=== PATIENT | male | born 1935 | race Caucasian/White ===

== ENCOUNTER 2017-04-08 19:33 | Inpatient (IN) | payer MEDICARE ==
[2017-04-08] MEDS ORDERED: NS 0.9% 1000 ML*IV.FLUID IV ONE (20:18)
[2017-04-08] MEDS ORDERED: Azithromycin IV(*) 500 MG in NS 0.9% 250 ML* 250 ML IVPB ONE (20:19)
[2017-04-08] MEDS ORDERED: Albuterol/Ipratropium NEB.SOL* Albuterol 2.5 MG/Ipratropium 0.5 MG 3 ML INH ONE (20:19)
[2017-04-08] MEDS ORDERED: methylPREDNISolone 125 MG* 2 ML VIAL IV ONE (20:19)
[2017-04-08] MEDS ORDERED: cefTRIAXone(*) 1 GM in NS 0.9% 50 ML* 50 ML IVPB ONE (20:19)
[2017-04-08 20:37] LABS: ABS Basophils 0 10^3/ul (0-0.2); ABS Eosinophils 0 10^3/ul (0-0.6); ABS Lymphocytes 0.4 10^3/ul (1.0-4.8); ABS Monocytes 0.6 10^3/ul (0-0.8); ABS Neutrophils 4.6 10^3/ul (1.5-7.7); ABS Nucleated RBC 0 10^3/ul; Eosinophil % 0 % (0-6); Hematocrit 52 % (42-52); Hemoglobin 17.4 g/dl (14.0-18.0); Lymphocyte % 7.4 % (25-47); Mean Corpuscular HGB Conc 33 g/dl (31-36); Mean Corpuscular Hemoglobin 32 pg (27-31); Mean Corpuscular Volume 96 fL (80-94); Mean Platelet Volume 8 um3 (7.4-10.4); Nucleated Red Blood Cells % 0.2; Platelet Count 166 10^3/ul (150-450); Red Blood Count 5.44 10^6/ul (4.0-5.4); Red Cell Distribution Width 14 % (10.5-15); White Blood Count 5.5 10^3/ul (3.5-10.8)
[2017-04-08 20:44] LABS: INR 0.82 (0.77-1.02)
--- OUTSIDE RECORDS SUMMARY | 2017-04-08 21:18 | XMS REPORT ---
:1935 External Reference #:[id number] Author Organization [facility] Address [address] [place] [address] Phone [phone] Care Team Providers Name Role Phone Alondra Redd M.D., R.D. Care Team Information Habilitation Specialist Unavailable Payers Type Date Identification Numbers Payment Provider Subscriber Commercial Effective: Policy Number: [id number] [employer] Jacques Hawkins 2014 Expires: 2016 PayID: [id number] [employer] [address] [address] [place] [address] Commercial Effective: Policy Number: [facility] Medicare Jacques Hawkins 2011 [id number] Solutions Expires: 2014 Group Number: [id number] [address] [address] [place] [address] Commercial Effective: 2016 Policy Number: [employer] Jacques Hawkins [id number] Group Name: [employer] Ppo [address] PayID: [id number] [place] [address] Problems Date Description Provider Status Onset: 09/14/2010 Chronic obstructive lung disease Susu Nicholas M.D. Active Onset: 09/14/2010 Coronary arteriosclerosis Susu Nicholas M.D. Active Family History Date Family Member(s) Problem(s) Comments Onset: (age 76 Years) Father COPD : (age 76 Years) Mother due to Pneumonia : (09/2011) (age 48 First Daughter due to Cancer (Brain) Years) : (age 68 Years) First Brother due to Cancer Onset: (age 7 Years) Second Brother Cancer, Lung Onset: (age 72 Years) Third Brother Cancer, Colon Onset: (age 68 Years) Fourth Brother Cancer Onset: (age 68 Years) Fifth Brother Cancer : (age 80 Years) First Sister due to Heart Problems : (age 84 Years) Second Sister due to Cancer Social History Type Date Description Comments Marital Status Patient is Living Situation Lives with spouse Pets Household pets include a dog Occupation [employer] Cigarette Use Former cigarette smoker, smoked 1 pack daily For 50 Years, quit after 2006 dx of COPD. continued to smoke at home until her own HI in the summer of 2010. He restarted smoking summer 2011 when his daughter of a brain tumor. Alcohol Drinks liquor 2 drinks in the evening. Smoking Patient is a current smoker, smokes every day Seat Belt/Car Seat Always uses a seat belt Allergies, Adverse Reactions, Alerts Date Description Reaction Status Severity Comments 01/16/2004 NKDA active 05/19/2014 Contrast Dye active rash Medications Medication Date Status Form Strength Qnty SIG Indications Ordering Provider Doxycycline 03/31/ Active Tablets 100mg 10tab 1 tab by J44.1 Karin Monohydrate 2018 s mouth twice Shortle, a day for 5 TANK WELDER days Albuterol 03/27/ Active Nebulizer (2.5mg/3M 360ml every 4 J44.1 Karin Sulfate 2018 L) 0.083% hours as Shortle, needed TANK WELDER Prednisone 03/27/ Active Tablets 20mg 25tab 3 by mouth J44.1 Karin 2018 s every day x Shortle, 3 days, 2 by TANK WELDER mouth every day x 3 days, 1 by mouth every day x 3 day, 1/2 tab by mouth for 3 days Stiolto 05/16/ Active Aerosol 2.5-2.5mc 4gm 2 Alondra Respimat 2017 g/Act inhalations Tramaine once daily Deja., R.D. Nebulizer 03/26/ Active Device 1unit use as Alondra 2016 s directed for Tramaine wheezing/ Luz, shortness of R.D. breath. dx- copd,j44.9 Anti-Histamine 05/19/ Active prn Alondra 2014 Luz Redd, R.D. Ventolin HFA 12/11/ Active Aerosol 108(90Bas 8gm inhale two Alondra 2012 e) puffs by Tramaine, mcg/Act mouth every M.D., 4 hours as R.D. needed for wheeze Ipratropium 02/15/ Active Solution 0.5-2.5(3 360un Inhale The Alondra Henriette/[place] 2011 )mg/3ML its Contents Of Tramaine, rol Sulfate 1 Vial Via M.D., Nebulizer R.D. Four Times A Day For Breathing Budesonide 02/15/ Active Suspension 0.5mg/2ML 120un Inhale The Alondra 2011 its Contents Of Tramaine, One Vial Via M.D., Nebulizer R.D. Four Times A Day as Needed Azithromycin 02/01/ Hx Tablets 250mg 6tabs take 2 J44.1 Roxie 2015 - tablets Aly, then 1 GOLF CADDIE-C 2016 tablet daily for the next 4 days Prednisone 02/01/ Hx Tablets 50mg 5tabs 1 by mouth J44.1 Roxie 2015 - every day x Aly, days- take GOLF CADDIE-C 2017 with food Oxygen 07/01/ Hx 2 lpm via Pio Concentrator 2015 - nasal Leon, 02/01/ cannula for M.D. 2015 8 hours while sleeping. dx:j44.9 2nd dxs: i51.7 and r60.9 length of need: 99 Oxygen 06/30/ Hx 2 lpm via Alondra Concentrator 2015 - nasal Tramaine, 07/01/ cannula for M.D., 2015 8 hours R.D. while sleeping. dx:j44.9 2nd dxs: i51.7 and r60.9 length of need: 99 Overnight 06/09/ Hx Alondra Oximetry 2016 - Tramaine 02/01/ M.D., 2016 R.D. Nebulizer 03/25/ Hx Kit 1unit use as Alondra Kit/Tubing/Flori 2016 - s directed darshan Redd 03/26/ M.D., 2016 R.D. Spiriva 10/17/ Hx Aerosol 2.5mcg/Ac 3mont inhale two Ari Respimat 2014 - t hs puffs by [place] 02/11/ mouth once a III, 2015 day GOLF CADDIE-C Nasonex 05/30/ Hx Suspension 50mcg/Act 1unit 1 puffs Alondra 2014 - s twice a day Tramaine, 12/15/ as needed M.D., 2016 R.D. Spiriva 05/30/ Hx Capsules 18mcg 30cap inhale the Alondra Handihaler 2014 - contents of Tramaine, capsule M.DKristy, 2015 daily R.D. Spiriva 05/30/ Hx Aerosol 2.5mcg/Ac 4unit inhale two Ivon Respimat 2014 - t s puffs by P. 05/16/ mouth once a Blegen, 2016 M.D. Ipratropium 04/05/ Hx Solution 0.02% 90uni one vial via Pio Georgette 2012 - ts nebulized Edward, 12/11/ treatment M.Mira 2013 qid prn breathing Albuterol Neb 05/09/ Hx Vials 0.083% 90uni nebulize One Susu Soln 2006 - ts vial bid to K.WKristy 12/11/ qid prn Cristopher 2013 Luz Ipratropium 05/09/ Hx 0.02% 90uni Ud for Use Pio Henriette Unit 2006 - in nebulizer Edward, Dose Nebs 04/05/ Up to qid M.Mira 2013 Pulmicort 05/09/ Hx Suspension 0.5mg/2 60uni nebulized Susu Respules 2007 - ML ts twice Daily K.W. 02/15/ Cristopher 2011 M.DKristy Pulmicort 03/27/ Hx Inhaler 200mcg/In 1unit one to two 496 Susu Turbuhaler 2006 - h s inhalations K.W. 05/09/ bid Caren iNcholas M.D. Prednisone 03/27/ Hx Tablets 20mg QS 1 po with 50 J44.9 Alondra 2007 - mg pill for Tramaine, 2 days, then M.DKristy, 2017 3 po qd for R.D. 3 days, then 2 po qd for 3 days then 1 po qd for 3 days then 1/2 qd for 3d Zithromax 03/27/ Hx Tablets 250mg 6tabs two po qd 496 Susu Z-Asif 2006 - and K.W. 05/09/ then one po Cristopher 2006 qd for 4 M.D. days Vicodin 03/27/ Hx Tablets 5mg;500 40tab one to two 496 Susu 2007 - mg s po qid prn K.W. 05/09/ rib pain Cristopher, 2006 M.D. Atrovent 02/02/ Hx Inhaler Mdi two puffs 496 Rosetta 2004 - qid A. 05/09/ Williams, 2006 [facility] Advair Diskus 01/15/ Hx Discus 500/50 mg One 1 puff bid 496 Rosetta 2004 - A. 05/09/ Williams, 2006 [facility] Nasonex 01/15/ Hx 1unit 2 Sprays 496 Ros[place] 2004 - s Each Side qd A. 12/11/ Williams, 2012 [facility] Albuterol / Hx Inhaler 17gm 2-seperate Unknown Metered Dose 0000 - puffs every Inhaler 05/09/ 4 hours 2006 Prednisone / Hx Tablets 10mg 0tabs taper as Unknown 0000 - directed / over 6 days -471 Immunizations CPT Code Status Date Vaccine Lot # 51234 Given 12/11/2012 Pneumovax 23 (PPSV23) 65+ years or high risk 2 to [id number] 65 year old [id number] Refused 12/16/2015 [place] [address] Refused 06/10/2015 Influenza Virus Vaccine, Quadrivalent, 3 Yr > Quad, Preserv Free Vital Signs Date Vital Result Comment 03/31/2017 Weight 120.00 lb Weight in kg's 54.432 BP Systolic 126 mmHg BP Diastolic 82 mmHg Heart Rate 93 /min Body Temperature 95.9 F Respiratory Rate 18 /min O2 % BldC Oximetry 96 % 03/27/2017 Weight 118.00 lb Weight in kg's 53.525 BP Systolic 158 mmHg BP Diastolic 88 mmHg Heart Rate 93 /min Body Temperature 96.5 F Respiratory Rate 44 /min O2 % BldC Oximetry 98 % 02/05/2016 Weight 113.00 lb Weight in kg's 51.257 BP Systolic 124 mmHg BP Diastolic 68 mmHg Heart Rate 107 /min Body Temperature 97.0 F Respiratory Rate 28 /min O2 % BldC Oximetry 97 % 02/02/2016 Weight 112.00 lb Weight in kg's 50.803 BP Systolic 118 mmHg BP Diastolic 70 mmHg Heart Rate 93 /min Body Temperature 98.5 F Respiratory Rate 18 /min O2 % BldC Oximetry 94 % Room air repeat 95% 12/16/2015 Weight 113.00 lb Weight in kg's 51.257 BP Systolic 136 mmHg BP Diastolic 70 mmHg Heart Rate 80 /min Body Temperature 97.9 F Respiratory Rate 18 /min Height 65 inches 5'5" BMI (Body Mass Index) 18.8 kg/m2 08/24/2015 Weight 116.00 lb Weight in kg's 52.618 BP Systolic 122 mmHg BP Diastolic 78 mmHg Heart Rate 64 /min 06/10/2015 Weight 121.00 lb Weight in kg's 54.886 BP Systolic 110 mmHg BP Diastolic 70 mmHg Heart Rate 87 /min O2 % BldC Oximetry 98 % 12/10/2014 Weight 121.00 lb Weight in kg's 54.886 BP Systolic 100 mmHg BP Diastolic 60 mmHg Heart Rate 64 /min Respiratory Rate 14 /min O2 % BldC Oximetry 97 % 05/30/2014 Weight 123.00 lb Weight in kg's 55.793 BP Systolic 130 mmHg BP Diastolic 60 mmHg Heart Rate 58 /min Body Temperature 96.7 F O2 % BldC Oximetry 97 % 05/19/2014 Weight 124.00 lb Weight in kg's 56.246 BP Systolic 142 mmHg BP Diastolic 68 mmHg Heart Rate 98 /min Body Temperature 98.3 F O2 % BldC Oximetry 94 % 12/11/2012 Weight 121.00 lb Weight in kg's 54.886 BP Systolic 120 mmHg BP Diastolic 68 mmHg Heart Rate 70 /min Height 67 inches 5'7" BMI (Body Mass Index) 18.9 kg/m2 O2 % BldC Oximetry 98 % 09/14/2010 Weight 138.00 lb Weight in kg's 62.597 BP Systolic 132 mmHg BP Diastolic 70 mmHg Heart Rate 56 /min O2 % BldC Oximetry 96 % At Room Air 02/29/2008 Weight 148.00 lb Weight in kg's 67.133 BP Systolic 110 mmHg BP Diastolic 60 mmHg Heart Rate 68 /min O2 % BldC Oximetry 98 % room air 05/09/2006 Weight 143.00 lb Weight in kg's 64.865 BP Systolic 104 mmHg BP Diastolic 72 mmHg Heart Rate 76 /min Body Temperature 97.6 F 04/03/2006 Weight 139.00 lb Weight in kg's 63.050 BP Systolic 120 mmHg BP Diastolic 70 mmHg Heart Rate 72 /min 03/27/2006 Weight 137.00 lb Weight in kg's 62.143 BP Systolic 140 mmHg BP Diastolic 90 mmHg Heart Rate 87 /min Last Menstrual Period 0 O2 % BldC Oximetry 97 % 02/03/2004 Weight 133.00 lb Weight in kg's 60.329 BP Systolic 90 mmHg BP Diastolic 60 mmHg 01/16/2004 Weight 126.00 lb Weight in kg's 57.154 BP Systolic 149 mmHg BP Diastolic 88 mmHg Heart Rate 63 /min Body Temperature 97.0 F Respiratory Rate 18 /min Results Test Date Test Result H/L Range Note CBC Auto Diff 12/16/2015 White Blood Count 9.2 10^3/uL 3.5-10.8 Red Blood Count 5.15 10^6/uL 4.0-5.4 Hemoglobin 16.2 g/dL 14.0-18.0 Hematocrit 49 % 42-52 Mean Corpuscular Volume 96 fL High 80-94 Mean Corpuscular Hemoglobin 32 pg High 27-31 Mean Corpuscular HGB Conc 33 g/dL 31-36 Red Cell Distribution Width 14 % 10.5-15 Platelet Count 236 10^3/uL 150-450 Mean Platelet Volume 9 um3 7.4-10.4 Abs Neutrophils 6.2 10^3/uL 1.5-7.7 Abs Lymphocytes 1.8 10^3/uL 1.0-4.8 Abs Monocytes 0.7 10^3/uL 0-0.8 Abs Eosinophils 0.3 10^3/uL 0-0.6 Abs Basophils 0.1 10^3/uL 0-0.2 Abs Nucleated RBC 0.01 10^3/uL Granulocyte % 67.3 % 38-83 Lymphocyte % 20.1 % Low 25-47 Monocyte % 8.1 % 1-9 Eosinophil % 3.0 % 0-6 Basophil % 1.5 % 0-2 Nucleated Red Blood Cells % 0.1 Comp Metabolic Panel 12/16/2015 Sodium 139 mmol/L 133-145 Potassium 4.5 mmol/L 3.5-5.0 Chloride 103 mmol/L 101-111 Co2 Carbon Dioxide 29 mmol/L 22-32 Anion Gap 7 mmol/L 2-11 Glucose 68 mg/dL Low 70-100 Blood Urea Nitrogen 13 mg/dL 6-24 Creatinine 1.02 mg/dL 0.67-1.17 BUN/Creatinine Ratio 12.7 8-20 Calcium 9.5 mg/dL 8.6-10.3 Total Protein 6.8 g/dL 6.4-8.9 Albumin 4.3 g/dL 3.2-5.2 Globulin 2.5 g/dL 2-4 Albumin/Globulin Ratio 1.7 1-3 Total Bilirubin 0.40 mg/dL 0.2-1.0 Alkaline Phosphatase 93 U/L 34-104 Alt 10 U/L 7-52 Ast 13 U/L 13-39 Egfr Non- 70.5 >60 Egfr 90.6 >60 1 Laboratory test finding 12/16/2015 TSH (Thyroid Stim Horm) 1.06 mcIU/mL 0.34-5.60 2 Erythrocyte Sed Rate 9 mm/Hr 0-40 3 C Reactive Protein 2.97 mg/L < 5.00 4 Vitamin B12 282 pg/mL 180-914 5 CBC Auto Diff 08/24/2015 White Blood Count 9.7 10^3/uL 3.5-10.8 Red Blood Count 4.71 10^6/uL 4.0-5.4 Hemoglobin 14.9 g/dL 14.0-18.0 Hematocrit 44 % 42-52 Mean Corpuscular Volume 94 fL 80-94 Mean Corpuscular Hemoglobin 32 pg High 27-31 Mean Corpuscular HGB Conc 34 g/dL 31-36 Red Cell Distribution Width 14 % 10.5-15 Platelet Count 235 10^3/uL 150-450 Mean Platelet Volume 9 um3 7.4-10.4 Abs Neutrophils 6.6 10^3/uL 1.5-7.7 Abs Lymphocytes 1.9 10^3/uL 1.0-4.8 Abs Monocytes 0.8 10^3/uL 0-0.8 Abs Eosinophils 0.4 10^3/uL 0-0.6 Abs Basophils 0.1 10^3/uL 0-0.2 Abs Nucleated RBC 0 10^3/uL Granulocyte % 67.7 % 38-83 Lymphocyte % 19.4 % Low 25-47 Monocyte % 8.1 % 1-9 Eosinophil % 3.6 % 0-6 Basophil % 1.2 % 0-2 Nucleated Red Blood Cells % 0 Comp Metabolic Panel 08/24/2015 Sodium 138 mmol/L 133-145 Potassium 4.4 mmol/L 3.5-5.0 Chloride 105 mmol/L 101-111 Co2 Carbon Dioxide 26 mmol/L 22-32 Anion Gap 7 mmol/L 2-11 Glucose 81 mg/dL 70-100 Blood Urea Nitrogen 15 mg/dL 6-24 Creatinine 1.06 mg/dL 0.67-1.17 BUN/Creatinine Ratio 14.2 8-20 Total Protein 6.4 g/dL 6.4-8.9 Albumin 3.9 g/dL 3.2-5.2 Globulin 2.5 g/dL 2-4 Albumin/Globulin Ratio 1.6 1-3 Total Bilirubin 0.30 mg/dL 0.2-1.0 Alkaline Phosphatase 82 U/L 34-104 Alt 9 U/L 7-52 Ast 12 U/L Low 13-39 Egfr Non- 67.4 >60 Egfr 86.7 >60 6 Calcium 9.0 mg/dL 8.6-10.3 Lipid Profile (Trig/Chol/HDL) 08/24/2015 Triglycerides 97 mg/dL 7 Cholesterol 174 mg/dL 8 HDL Cholesterol 51.3 mg/dL 9 LDL Cholesterol 103 mg/dL 10 Basic Metabolic Panel 05/19/2014 Sodium 139 mmol/L 133-145 Potassium 3.8 mmol/L 3.5-5.0 Chloride 105 mmol/L 101-111 Co2 Carbon Dioxide 26 mmol/L 22-32 Anion Gap 8 mmol/L 2-11 Glucose 117 mg/dL High 70-100 Blood Urea Nitrogen 14 mg/dL 6-24 Creatinine 0.89 mg/dL 0.67-1.17 BUN/Creatinine Ratio 15.7 8-20 Calcium 9.3 mg/dL 8.6-10.3 Egfr Non- 82.9 >60 Egfr 106.6 >60 11 CBC Auto Diff 05/19/2014 White Blood Count 7.7 10^3/uL 4.8-10.8 Red Blood Count 4.67 10^6/uL 4.0-5.4 Hemoglobin 15.4 g/dL 14.0-18.0 Hematocrit 46 % 42-52 Mean Corpuscular Volume 98 fL High 80-94 Mean Corpuscular Hemoglobin 33 pg High 27-31 Mean Corpuscular HGB Conc 34 g/dL 31-36 Red Cell Distribution Width 14 % 10.5-15 Platelet Count 222 10^3/uL 150-450 Mean Platelet Volume 9 um3 7.4-10.4 Abs Neutrophils 4.4 10^3/uL 1.5-7.7 Abs Lymphocytes 1.8 10^3/uL 1.0-4.8 Abs Monocytes 0.7 10^3/uL 0-0.8 Abs Eosinophils 0.6 10^3/uL 0-0.6 Abs Basophils 0.1 10^3/uL 0-0.2 Abs Nucleated RBC 0.01 10^3/uL Granulocyte % 57.3 % 38-83 Lymphocyte % 24.1 % Low 25-47 Monocyte % 9.4 % High 1-9 Eosinophil % 8.3 % High 0-6 Basophil % 0.9 % 0-2 Nucleated Red Blood Cells % 0.1 Laboratory test finding 05/19/2014 TSH (Thyroid Stimulating 0.79 IU/mL 0.34-5.60 Horm) Lipid Profile 05/19/2014 Triglycerides 144 mg/dL 12 (Trig/Chol/HDL) Cholesterol 174 mg/dL 13 HDL Cholesterol 40.7 mg/dL 14 LDL Cholesterol 105 mg/dL 15 Comp Metabolic Panel 12/11/2012 Sodium 137 mmol/L 133-145 Potassium 4.7 mmol/L 3.5-5.0 Chloride 105 mmol/L 101-111 Co2 Carbon Dioxide 28.0 mmol/L 22-32 Anion Gap 4.0 mmol/L 2-11 Glucose 77 mg/dL 70-100 Blood Urea Nitrogen 14 mg/dL 6-24 Creatinine 0.80 mg/dL 0.50-1.40 BUN/Creatinine Ratio 17.5 8-20 Calcium 9.5 mg/dL 8.1-9.9 Total Protein 6.3 g/dL 6.2-8.1 Albumin 3.9 g/dL 3.2-5.2 Globulin 2.4 g/dL 2-4 Albumin/Globulin Ratio 1.6 1-3 Total Bilirubin 0.5 mg/dL 0.4-1.5 Alkaline Phosphatase 85 U/L 30-110 Alt 10 U/L Low 14-54 Ast 16 U/L 12-42 Egfr Non- 94.0 >60 Egfr 120.9 >60 16 CBC No Diff 12/11/2012 White Blood Count 9.0 10^3/uL 4.8-10.8 Red Blood Count 4.78 10^6/uL 4.0-5.4 Hemoglobin 15.9 g/dL 14.0-18.0 Hematocrit 47 % 42-52 Mean Corpuscular Volume 98 fL High 80-94 Mean Corpuscular Hemoglobin 33 pg High 27-31 Mean Corpuscular HGB Conc 34 g/dL 31-36 Red Cell Distribution Width 14 % 10.5-15 Platelet Count 307 10^3/uL 150-450 Mean Platelet Volume 9 um3 7.4-10.4 Laboratory test finding 12/11/2012 PSA Screening 3.561 ng/mL 0-4.000 17 Laboratory test finding 09/14/2010 PSA Screening 2.36 NG/ML 0-4 18 CBC Auto Diff 09/14/2010 White Blood Count 8.8 CUMM 4.8-10.8 Red Cell Count 5.18 CUMM 4.6-6.2 Hemoglobin 17.5 g/dL 14.0-18.0 Hematocrit 51 % 42-52 Mean Corpuscular Volume 99 um3 High 80-94 Mean Corpuscular Hemoglob 34 pg High 27-31 Mean Corpuscular HGB Cone 34 g/dL 32-36 Redcell Distribution WDTH 15 % 10.5-15 Platelet Count 255 CUMM 150-450 Mean Platelet Volume 9.5 um3 7.4-10.4 Gran % 63.2 % 38-83 Lymph % 23.8 % Low 25-47 Mononuclear % 8.0 % 1-9 Eosinophil % 4.4 % 0-6 Basophil % 0.6 % 0-2 Abs Lymphs 2.1 1.0-4.8 Abs Mononuclear 0.7 0-0.8 Absolute Neutrophil Count 5.5 1.5-7.7 Abs Eosinophils 0.4 0-0.6 Abs Basophils 0.1 0-0.2 Comp Metabolic Panel 09/14/2010 Sodium 143 mmol/L 135-145 Potassium 4.9 mmol/L 3.5-5.0 Chloride 105 mmol/L 101-111 Co2 (Carbon Dioxide) 28.0 mmol/L 22-32 Anion Gap 10.0 mmol/L 2-11 19 Glucose 104 mg/dL High 70-100 BUN 12 mg/dL 6-24 Creatinine 1.10 mg/dL 0.50-1.40 One Over Creatinine 0.90 BUN/Creatinine Ratio 10.9 8-20 Calcium 10.0 mg/dL High 8.1-9.9 Total Protein 7.1 GM/DL 6.2-8.1 Albumin 4.2 GM/DL 3.2-5.2 Globulin 2.9 GM/DL 2-4 Albumin/Globulin Ratio 1.4 1-3 Bilirubin Total 0.6 mg/dL 0.4-1.5 20 Alkaline Phosphatase 90 U/L 39-117 Alt (SGPT) 21 U/L 17-63 Ast (Sgot) 18 U/L 12-42 eGFR Non- 65.4 > 60 eGFR 84.2 > 60 21 Laboratory test finding 02/29/2008 BUN 10 mg/dL 6-24 Creatinine 02/29/2008 Creatinine 1.20 mg/dL 0.50-1.40 One Over Creatinine 0.80 Lipid Profile 03/27/2006 Cholesterol/HDL Ratio 4.32 AVERAGE 1-4.97 (Trig/Chol/HDL) Cholesterol 203 mg/dL High Less Than 200 22 Triglyceride 141 mg/dL 40-200 High Density Lipoprotein 47 mg/dL 40-60 Low Density Lipoprotein 128 mg/dL High Less Than 100 23 Laboratory test finding 03/27/2006 PSA Screening 1.57 NG/ML 0.01-4.0 24 TSH 1.43 MIU/ML 0.34-5.60 Comp Metabolic Panel 03/27/2006 One Over Creatinine 0.52 Anion Gap 13.0 mmol/L High 2-11 25 Albumin/Globulin Ratio 1.5 1-3 Albumin 4.1 GM/DL 3.2-5.2 Alkaline Phosphatase 103 U/L 39-117 Alt (SGPT) 31 U/L 17-63 Ast (Sgot) 26 U/L 12-42 Calcium 9.6 mg/dL 8.7-10.2 Chloride 103 mmol/L 101-111 Co2 (Carbon Dioxide) 21.0 mmol/L Low 22-32 Globulin 2.8 GM/DL 2-4 Glucose 84 mg/dL 70-105 Potassium 4.2 mmol/L 3.5-5.0 Sodium 137 mmol/L 135-145 Bilirubin Total 0.9 mg/dL 0.4-1.5 Total Protein 6.9 GM/DL 6.2-8.1 BUN/Creatinine Ratio 12.1 8-20 Creatinine 1.9 mg/dL High 0.5-1.4 Creatinine 03/27/2006 One Over Creatinine 0.52 Creatinine 1.9 mg/dL High 0.5-1.4 Laboratory test finding 03/27/2006 BUN 23 mg/dL 6-24 1 Because ethnic data is not always readily available, this report includes an eGFR for both -Americans and non- Americans. The National Kidney Disease Education Program (NKDEP) does not endorse the use of the MDRD equation for patients that are not between the ages of 18 and 70, are , have extremes of body size, muscle mass, or nutritional status, or are non- or non-. According to the National Kidney Foundation, irrespective of diagnosis, the stage of the disease is based on the level of kidney function: Stage Description GFR(mL/min/1.73 m(2)) 1 Kidney damage with normal or decreased GFR 90 2 Kidney damage with mild decrease in GFR 60-89 3 Moderate decrease in GFR 30-59 4 Severe decrease in GFR 15-29 5 Kidney failure <15 (or dialysis) 2 [id number] 3 [id number] 4 Acute inflammation: >10.00 5 Normal Range 180 to 914 Indeterminate Range 145 to 180 Deficient Range <145 6 Because ethnic data is not always readily available, this report includes an eGFR for both -Americans and non- Americans. The National Kidney Disease Education Program (NKDEP) does not endorse the use of the MDRD equation for patients that are not between the ages of 18 and 70, are , have extremes of body size, muscle mass, or nutritional status, or are non- or non-. According to the National Kidney Foundation, irrespective of diagnosis, the stage of the disease is based on the level of kidney function: Stage Description GFR(mL/min/1.73 m(2)) 1 Kidney damage with normal or decreased GFR 90 2 Kidney damage with mild decrease in GFR 60-89 3 Moderate decrease in GFR 30-59 4 Severe decrease in GFR 15-29 5 Kidney failure <15 (or dialysis) 7 Desirable <150 Borderline high 150-199 High 200-499 Very High >500 8 Desirable <200 Borderline high 200-239 High >239 9 Low <40 Desirable: 40-60 High: >60 10 Desirable: <100 mg/dL Near Optimal: 100-129 mg/dL Borderline High: 130-159 mg/dL High: 160-189 mg/dL Very High: >189 mg/dL 11 Because ethnic data is not always readily available, this report includes an eGFR for both -Americans and non- Americans. The National Kidney Disease Education Program (NKDEP) does not endorse the use of the MDRD equation for patients that are not between the ages of 18 and 70, are , have extremes of body size, muscle mass, or nutritional status, or are non- or non-. According to the National Kidney Foundation, irrespective of diagnosis, the stage of the disease is based on the level of kidney function: Stage Description GFR(mL/min/1.73 m(2)) 1 Kidney damage with normal or decreased GFR 90 2 Kidney damage with mild decrease in GFR 60-89 3 Moderate decrease in GFR 30-59 4 Severe decrease in GFR 15-29 5 Kidney failure <15 (or dialysis) 12 Desirable <150 Borderline high 150-199 High 200-499 Very High >500 13 Desirable <200 Borderline high 200-239 High >239 14 Low <40 Desirable: 40-60 High: >60 15 Desirable: <100 mg/dL Near Optimal: 100-129 mg/dL Borderline High: 130-159 mg/dL High: 160-189 mg/dL Very High: >189 mg/dL 16 Because ethnic data is not always readily available, this report includes an eGFR for both -Americans and non- Americans. The National Kidney Disease Education Program (NKDEP) does not endorse the use of the MDRD equation for patients that are not between the ages of 18 and 70, are , have extremes of body size, muscle mass, or nutritional status, or are non- or non-. According to the National Kidney Foundation, irrespective of diagnosis, the stage of the disease is based on the level of kidney function: Stage Description GFR(mL/min/1.73 m(2)) 1 Kidney damage with normal or decreased GFR 90 2 Kidney damage with mild decrease in GFR 60-89 3 Moderate decrease in GFR 30-59 4 Severe decrease in GFR 15-29 5 Kidney failure <15 (or dialysis) 17 Serum levels of PSA measured using the Nevro DXI Hybritech immunoassay should not be interpreted as absolute evidence of the presence or absence of disease. The PSA value should be used in conjunction with other pertinent clinical diagnostic procedures. The values obtained with different assay methods or kits cannot be used interchangeably. 18 * SERUM LEVELS OF PSA MEASURED USING THE KENNY Hear[employer] ACCESS HYBRITECH IMMUNOASSAY SHOULD NOT BE INTERPRETED ABSOLUTE EVIDENCE OF THE PRESENCE OR ABSENCE OF DISEASE. THE PSA VALUE SHOULD BE USED IN CONJUNCTION WITH OTHER PERTINENT CLINICAL DIAGNOSTIC PROCEDURES. 19 Anion gap measurement may be of limited value in the presence of any alkalosis, especially in a combined acid base disorder. . 20 A metabolite of Naproxen, O-desmethylnaproxen, has been shown to interfere with the Jendrassik-Calvin method for measuring total bilirubin. Samples from patients who have taken Naproxen have shown spurious elevation in total bilirubin levels. 21 Because ethnic data is not always readily available, this report includes an eGFR for both -Americans and non- Americans. The National Kidney Disease Education Program (NKDEP) does not endorse the use of the MDRD equation for patients that are not between the ages of 18 and 70, are , have extremes of body size, muscle mass, or nutritional status, or are non- or non-. According to the National Kidney Foundation, irrespective of diagnosis, the stage of the disease is based on the level of kidney function: Stage Description GFR(mL/min/1.73 m(2)) 1 Kidney damage with normal or decreased GFR 90 2 Kidney damage with mild decrease in GFR 60-89 3 Moderate decrease in GFR 30-59 4 Severe decrease in GFR 15-29 5 Kidney failure <15 (or dialysis) 22 Classification: Borderline High . 23 CALCULATED LDL APPROXIMATES THE VALUE OF A DIRECT LDL MEASUREMENT. Classification: Near or above optimal . 24 * SERUM LEVELS OF PSA MEASURED USING THE KENNY [employer] ACCESS HYBRITECH IMMUNOASSAY SHOULD NOT BE INTERPRETED ABSOLUTE EVIDENCE OF THE PRESENCE OR ABSENCE OF DISEASE. THE PSA VALUE SHOULD BE USED IN CONJUNCTION WITH OTHER PERTINENT CLINICAL DIAGNOSTIC PROCEDURES. 25 Anion gap measurement may be of limited value in the presence of any alkalosis, especially in a combined acid base disorder. . Procedures Date CPT Code Description Status 02/02/2016 51574 Nebulizer Treatment Completed 12/11/2012 31657 EKG, at Least 12 Leads w/Interpretation and Report Completed 12/11/2012 74094 Audiometric Screening Test, Pure Tone, Air Only Completed 05/09/2006 02236 Spirometry Completed 03/27/2006 31927 Spirometry Completed 03/27/2006 94797 EKG, at Least 12 Leads w/Interpretation and Report Completed Encounters Type Date Location Provider CPT E/M Dx Office Visit 02/05/2016 10:45a Main Office Alondra Redd M.D., R.DKristy 36363 J44.1 Office Visit 02/02/2016 4:00p [facility] 26261 J44.1 Office Visit 12/16/2015 9:30a Main Office Alondra Redd M.D., R.Mira G0439 Z00.00 J44.9 F17.200 G47.62 R63.4 Office Visit 08/24/2015 11:15a Main Office Alondra Redd M.D., Henry.DKristy 74326 H26.9 J44.9 F17.200 Z13.220 Office Visit 06/10/2015 10:45a Main Office Alondra Redd M.D., R.DKristy 78393 J44.9 Office Visit 12/10/2014 10:30a Main Office Alondra Redd M.D., Henyr.DKristy 97068 J44.9 Office Visit 05/30/2014 10:00a Main Office Alondra Redd M.D., R.DKristy 18492 496 Office Visit 05/19/2014 2:45p Main Office Alondra Redd M.D., Henry.DKristy 29712 496 Office Visit 12/11/2012 1:30p Main Office Susu Nicholas M.D. G0438 V70.0 496 305.1 389.9 V03.82 Office Visit 09/14/2010 11:00a Main Office Susu Nicholas M.D. 20776 780.8 496 782.1 785.2 Office Visit 02/29/2008 11:45a Main Office Susu Nicholas M.D. 72640 496 414.01 Office Visit 05/09/2006 12:30p Main Office Susu Nicholas M.D. 44860 496 Office Visit 05/09/2006 1:00p Main Office Susu Nicholas M.D. 40004 496 Office Visit 04/03/2006 2:00p Main Office Susu Nicholas M.D. 96988 496 414.01 Office Visit 03/27/2006 1:45p Main Office Susu Nicholas M.D. 73584 496 786.52 414.01 Office Visit 02/03/2004 9:45a Main Office Rosetta Kramer F.N.P.CKristy 19330 496 305.1 Office Visit 01/16/2004 9:00a Main Office Rosetta Kramer F.N.P.C. 92400 496 305.1 V16.8 Plan of Care Future Appointment(s):04/06/2017 12:00 pm - Alondra Redd M.D., R.D. at Main Dfdgec0603/31/2017 - Karin Lambert, NPJ44.1 Chronic obstructive pulmonary disease w (acute) exacerbationNew Medication:Doxycycline Monohydrate 100 mgComments:No acute concerns today. Patient improving with current regime. Discussed with . Doxycycline ordered. Discussed med, action, side effects, proper usePatient to follow up with MM (his primary) next week for reassessment. Football Coach referral in progress. Discussed imaging. No acute concerns. Imaging will be deferred to MM or Football Coach. Educated on new/ worsening symptoms and when to call/return. Patient stated understanding and agrees to planFollow up:fu next week RYAN
--- OUTSIDE RECORDS SUMMARY | 2017-04-08 21:19 | XMS REPORT ---
:1935 External Reference #:[id number] Author Organization [facility] Address [address] [place] [address] Phone [phone] Care Team Providers Name Role Phone Alondra Redd M.D., R.D. Care Team Information Housing Installer Unavailable Payers Type Date Identification Numbers Payment Provider Subscriber Commercial Effective: Policy Number: [id number] [employer] Jacques Hawkins 2014 Expires: 2016 PayID: [id number] Today's Options [address] [address] [place] [address] Commercial Effective: Policy Number: [facility] Medicare Jacques Hawkins 2011 [id number] Solutions Expires: 2014 Group Number: [id number] [address] [address] [place] [address] Commercial Effective: 2016 Policy Number: [employer] Medicare Jacques Hawkins [id number] Group Name: [employer] Medicare Ppo [address] PayID: [id number] [place] [address] Problems Date Description Provider Status Onset: 09/14/2010 [...] Pets Household pets include a dog Occupation Qual [place] Cigarette Use Former cigarette smoker, smoked 1 pack daily For 50 Years, quit after 2006 dx of COPD. continued to smoke at home until her own GA in the summer of 2010. 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 Nebulizer 03/26/ Active Device 1unit use as Alondra 2016 s directed for Tramaine wheezing/ M.DKristy, shortness of R.D. breath. dx- copd,j44.9 Anti-Histamine 05/19/ Active prn Alondra 2014 Luz Redd, R.D. Ventolin HFA 12/11/ Active Aerosol 108(90Bas 8gm inhale two Alondra 2012 e) puffs by Tramaine mcg/Act mouth every M.D., 4 hours as R.D. needed for wheeze Ipratropium 02/15/ Active Solution 0.5-2.5(3 360un Inhale The Alondra [place] 2011 )mg/3ML its Contents Of Tramaine, rol Sulfate 1 Vial Via M.D., Nebulizer R.D. Four Times A Day For Breathing Budesonide 02/15/ Active Suspension 0.5mg/2ML 120un Inhale The Alondra 2011 its Contents Of Tramaine, One Vial Via M.D., Nebulizer R.D. Four Times A Day as Needed Azithromycin 02/01/ Hx Tablets 250mg 6tabs take 2 J44.1 Roxie 2015 - tablets Aly, 02/07/ today then 1 MEDICAL CODER-C 2017 tablet daily for the next 4 days Prednisone 02/01/ Hx Tablets 50mg 5tabs 1 by mouth J44.1 Roxie 2015 - every day x Aly, days- take MEDICAL CODER-C 2017 with food Oxygen 07/01/ Hx 2 [...] Hx Alondra Oximetry 2016 - Tramaine 02/01/ Luz, 2016 R.D. Nebulizer 03/25/ Hx Kit 1unit use as Alondra Kit/Tubing/Flori 2015 - s directed darshan Redd 03/26/ Luz, 2016 R.D. Spiriva 10/17/ Hx Aerosol 2.5mcg/Ac 3mont inhale two Ari Respimat 2014 - t hs puffs by Alto 02/11/ mouth once a III, 2015 day MEDICAL CODER-C Nasonex 05/30/ Hx Suspension 50mcg/Act 1unit 1 puffs Alondra 2014 - s twice a day Tramaine 12/15/ as needed M.D., 2016 R.D. Spiriva 05/30/ Hx Capsules 18mcg 30cap inhale the Alondra Handihaler 2014 - contents of Tramaine, capsule M.D., 2015 daily R.D. Spiriva 05/30/ Hx Aerosol 2.5mcg/Ac 4unit inhale two Ivon Respimat 2015 - t s puffs by P. 05/16/ mouth once a Blegen, 2016 M.D. Ipratropium 04/05/ Hx Solution 0.02% 90uni one vial via Pio [place] 2012 - ts nebulized Leon, 12/11/ treatment M.D. 2013 qid prn breathing Albuterol Neb 05/09/ Hx Vials 0.083% 90uni nebulize One Susu Soln 2006 - ts vial bid to K.W. 12/11/ qid prn Cristopher 2012 M.D. Ipratropium 05/09/ Hx 0.02% 90uni Ud for Use Pio [place] Unit 2006 - in nebulizer Leon, Dose Nebs 04/05/ Up to qid M.D. 2013 Pulmicort 05/09/ Hx Suspension 0.5mg/2 60uni nebulized Susu Respules 2007 - ML ts twice Daily K.W. 02/15/ Cristopher, 2011 M.D. Pulmicort 03/27/ Hx Inhaler 200mcg/In 1unit one to two 496 Susu Turbuhaler 2007 - h s inhalations K.W. 05/09/ bid Cristopher 2006 M.Joaquin. Prednisone 03/27/ Hx Tablets 20mg QS 1 po with 50 J44.9 Alondra 2007 - mg pill for Tramaine, days, then M.D., 2017 3 po qd for R.D. 3 [...] qid prn K.W. 05/09/ rib pain Cristopher, 2007 Luz Atrovent 02/02/ Hx Inhaler Mdi two puffs [...] CPT Code Status Date Vaccine Lot # [id number] Given 12/11/2012 Pneumovax 23 (PPSV23) 65+ years or high risk 2 to [id number] 65 year old [address]10 Refused 12/16/2015 [place] [id number] Refused 06/10/2015 Influenza Virus Vaccine, Quadrivalent, 3 Yr > Quad, Preserv Free Vital Signs Date Vital Result Comment 03/27/2017 Weight 118.00 lb Weight in kg's [...] 5 Kidney failure <15 (or dialysis) 2 [id number] 3 [id number] 4 Acute inflammation: >10.00 5 Normal Range [...] Serum levels of PSA measured using the [employer] DXI Hybritech immunoassay should not be interpreted as absolute evidence of the presence or absence of disease. The PSA value should be used in conjunction with other pertinent clinical diagnostic procedures. The values obtained with different assay methods or kits cannot be used interchangeably. 18 * SERUM LEVELS OF PSA MEASURED USING THE KENNY Nascentric ACCESS HYBRITECH IMMUNOASSAY SHOULD NOT BE INTERPRETED [...] has been shown to interfere with the Jendrassik-Barron method for measuring total bilirubin. Samples from [...] SERUM LEVELS OF PSA MEASURED USING THE SphereUp ACCESS HYBRITECH IMMUNOASSAY SHOULD NOT BE INTERPRETED ABSOLUTE EVIDENCE OF THE PRESENCE OR ABSENCE OF DISEASE. THE PSA VALUE SHOULD BE USED IN CONJUNCTION WITH OTHER PERTINENT CLINICAL DIAGNOSTIC PROCEDURES. 25 Anion gap measurement may be of limited value in the presence of any alkalosis, especially in a combined acid base disorder. . Procedures Date CPT Code Description Status 02/02/2016 19391 Nebulizer Treatment Completed 12/11/2012 73720 EKG, at Least 12 Leads w/Interpretation and Report Completed 12/11/2012 37327 Audiometric Screening Test, Pure Tone, Air Only Completed 05/09/2006 99676 Spirometry Completed 03/27/2006 98614 Spirometry Completed 03/27/2006 69549 EKG, at Least 12 Leads w/Interpretation and Report Completed Encounters Type Date Location Provider CPT E/M Dx Office Visit 02/05/2016 10:45a Main Office Alondra Redd M.D., Henry.Mira 26767 J44.1 Office Visit 02/02/2016 4:00p Main Office Roxie Aly [facility] 72596 J44.1 Office Visit 12/16/2015 9:30a Main Office Alondra Redd M.D., Henry.Mira G0439 Z00.00 J44.9 F17.200 G47.62 R63.4 Office Visit 08/24/2015 11:15a Main Office Alondra Redd M.D., Henry.Mira 21102 H26.9 J44.9 F17.200 Z13.220 Office Visit 06/10/2015 10:45a Main Office Alondra Redd M.D., [place] 05200 J44.9 Office Visit 12/10/2014 10:30a Main Office Alondra Redd M.D., Henry.Mira 95291 J44.9 Office Visit 05/30/2014 10:00a Main Office Alondra Redd M.D., Henry.Mira 96471 496 Office Visit 05/19/2014 2:45p Main Office Alondra Redd M.D., [place] 63624 496 Office Visit 12/11/2012 1:30p Main Office Susu Nicholas M.D. G0438 V70.0 496 305.1 389.9 V03.82 Office Visit 09/14/2010 11:00a Main Office Susu Nicholas M.D. 61428 780.8 496 782.1 785.2 Office Visit 02/29/2008 11:45a Main Office Susu Nicholas M.D. 27401 496 414.01 Office Visit 05/09/2006 12:30p Main Office Susu Nicholas M.D. 49625 496 Office Visit 05/09/2006 1:00p Main Office Susu Nicholas M.D. 49581 496 Office Visit 04/03/2006 2:00p Main Office Susu Nicholas M.D. 95954 496 414.01 Office Visit 03/27/2006 1:45p Main Office Susu Nicholas M.D. 23955 496 786.52 414.01 Office Visit 02/03/2004 9:45a Main Office Rosetta Kramer F.N.P.C. 77091 496 305.1 Office Visit 01/16/2004 9:00a Main Office Rosetta Kramer F.N.P.CKristy 39514 496 305.1 V16.8 Plan of Care Future Appointment(s):03/30/2017 2:45 pm - Karin Lambert NP at Main Tbutoo1503/27/2017 - Karin Lambert NPJ44.1 Chronic obstructive pulmonary disease w (acute) exacerbationNew Medication:Albuterol Sulfate (2.5 mg/3ML) 0.083%Prednisone 20 mgComments:DuoNeb given. Breathing improved after treatment. Less rapid, shallow breathing. Also increased airflow auscultated. Patient expressed improvement. Discussed care with SS who also evaluated patient. Discussed changing DuoNeb to Albuterol only and he is getting anticholinergic with Stiolto. Instructed to use Albuterol 4 times a day until breathing improves. Also provided with prescription for prednisone taper. Educated on new/worsening symptoms and when to call/return or when to seek immediate medical attention. Patient to follow up Monday for reassessment. Referred also to manager of application development.Patient andwife stated understanding and agrees to planFollow up:follow up for recheck refer to Dr Minor pulmonology
[2017-04-08] MEDS ORDERED: Oseltamivir CAP* 75 MG CAP PO ONE (21:25)
--- NOTE | 2017-04-08 21:34 | ED ---
Babak Donahue Sixian, scribed for Kyle Denny MD on 04/08/17 at 2013 . Shortness of Breath - HPI Summary HPI Summary: This patient is an 81 year old M BIBA to ED with a chief complaint of SOB worsening since last week. 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 The patient rates the pain 0/10 in severity. Symptoms aggravated and alleviated by nothing. Patient reports having a nebulizer at home and adequate intake of fluids. Patient denies productive cough, ankle swelling, body aches, fever. - History of Current Complaint Chief Complaint: EDShortnessOfBreath Time Seen by Provider: 04/08/17 19:41 Hx Obtained From: Patient Onset/Duration: Gradual Onset, Lasting Days, Still Present Aggrevating Factors: Nothing Alleviating Factors: Nothing - Allergy/Home Medications Allergies/Adverse Reactions: Allergies Allergy/AdvReac Type Severity Reaction Status Date / Time No Known Allergies Allergy Verified 09/08/15 06:44 PMH/Surg Hx/FS Hx/Imm Hx Respiratory History: Reports: Other Respiratory Problems/Disorders - COPD-WELL CONTROLLED WITH DAILY MEDS Sensory History: Reports: Hx Contacts or Glasses - GLASSES Denies: Hx Hearing Aid Opthamlomology History: Reports: Hx Contacts or Glasses - GLASSES - Surgical History Hx Anesthesia Reactions: No Infectious Disease History: No Infectious Disease History: Denies: Traveled Outside the [place] in Last 30 Days - Family History Known Family History: Negative: Hypertension, Diabetes - Social History Alcohol Use: Daily Alcohol Amount: 1-2 A DAY Substance Use Type: Reports: None Smoking Status (MU): Current Every Day Smoker Amount Used/How Often: 10 CIGS DAILY X 63 YRS. Have You Smoked in the Last Year: Yes Review of Systems Negative: Fever Respiratory: Negative - productive cough Musculoskeletal: Negative - ankle swelling Negative: Myalgia All Other Systems Reviewed And Are Negative: Yes Physical Exam - Summary Physical Exam Summary: General: Mildly ill appearing , no pain distress Skin: warm, color reflects adequate perfusion, dry Head: normal Eyes: EOMI, KIERA ENT: normal Neck: supple, nontender Respiratory: CTA, breath sounds present, Rhonchi greater on L than on R Mild respiratory distress Scattered wheezing Cardiovascular: RRR Abdomen: soft, nontender Bowel: present Musculoskeletal: normal, strength/ROM intact Neurological: normal, sensory/motor intact, A&O x3 Psychological: affect/mood appropriate Triage Information Reviewed: Yes Vital Signs On Initial Exam: Initial Vitals Temp Pulse Resp BP Pulse Ox 98.5 F 103 24 128/85 96 04/08/17 19:52 04/08/17 19:52 04/08/17 19:52 04/08/17 19:52 04/08/17 19:52 Vital Signs Reviewed: Yes Diagnostics - Vital Signs Vital Signs Temp Pulse Resp BP Pulse Ox 04/08/17 19:52 98.5 F 103 24 128/85 96 - Laboratory Lab Results: Lab Results 04/08/17 04/08/17 04/08/17 Range/Units 20:04 20:04 20:04 WBC 5.5 (3.5-10.8) 10^3/ul RBC 5.44 H (4.0-5.4) 10^6/ul Hgb 17.4 (14.0-18.0) g/dl Hct 52 (42-52) % MCV 96 H (80-94) fL MCH 32 H (27-31) pg MCHC 33 (31-36) g/dl RDW 14 (10.5-15) % Plt Count 166 (150-450) 10^3/ul MPV 8 (7.4-10.4) um3 Neut % (Auto) 82.4 (38-83) % Lymph % (Auto) 7.4 L (25-47) % Bates % (Auto) 10.1 H (0-7) % Eos % (Auto) 0 (0-6) % Baso % (Auto) 0.1 (0-2) % Absolute Neuts (auto) 4.6 (1.5-7.7) 10^3/ul Absolute Lymphs (auto) 0.4 L (1.0-4.8) 10^3/ul Absolute Monos (auto) 0.6 (0-0.8) 10^3/ul Absolute Eos (auto) 0 (0-0.6) 10^3/ul Absolute Basos (auto) 0 (0-0.2) 10^3/ul Absolute Nucleated RBC 0 10^3/ul Nucleated RBC % 0.2 INR (Anticoag Therapy) 0.82 (0.77-1.02) APTT 30.3 (26.0-36.3) seconds Sodium 137 (133-145) mmol/L Potassium 4.2 (3.5-5.0) mmol/L Chloride 98 L (101-111) mmol/L Carbon Dioxide 27 (22-32) mmol/L Anion Gap 12 H (2-11) mmol/L BUN 20 (6-24) mg/dL Creatinine 1.17 (0.67-1.17) mg/dL Est GFR ( Amer) 77.1 (>60) Est GFR (Non-Af Amer) 60.0 (>60) BUN/Creatinine Ratio 17.1 (8-20) Glucose 103 H (70-100) mg/dL Lactic Acid (0.5-2.0) mmol/L Calcium 9.4 (8.6-10.3) mg/dL Total Bilirubin 0.30 (0.2-1.0) mg/dL AST 24 (13-39) U/L ALT 24 (7-52) U/L Alkaline Phosphatase 116 H (34-104) U/L Troponin I 0.01 (<0.04) ng/mL C-Reactive Protein 17.55 H (< 5.00) mg/L B-Natriuretic Peptide ( - 100) pg/mL Total Protein 7.2 (6.4-8.9) g/dL Albumin 3.9 (3.2-5.2) g/dL Globulin 3.3 (2-4) g/dL Albumin/Globulin Ratio 1.2 (1-3) Lipase < 10 L (11.0-82.0) U/L Procalcitonin (<0.6) ng/mL Influenza A (Rapid) (Negative) Influenza B (Rapid) (Negative) 04/08/17 04/08/17 04/08/17 Range/Units 20:04 20:04 20:04 WBC (3.5-10.8) 10^3/ul RBC (4.0-5.4) 10^6/ul Hgb (14.0-18.0) g/dl Hct (42-52) % MCV (80-94) fL MCH (27-31) pg MCHC (31-36) g/dl RDW (10.5-15) % Plt Count (150-450) 10^3/ul MPV (7.4-10.4) um3 Neut % (Auto) (38-83) % Lymph % (Auto) (25-47) % Bates % (Auto) (0-7) % Eos % (Auto) (0-6) % Baso % (Auto) (0-2) % Absolute Neuts (auto) (1.5-7.7) 10^3/ul Absolute Lymphs (auto) (1.0-4.8) 10^3/ul Absolute Monos (auto) (0-0.8) 10^3/ul Absolute Eos (auto) (0-0.6) 10^3/ul Absolute Basos (auto) (0-0.2) 10^3/ul Absolute Nucleated RBC 10^3/ul Nucleated RBC % INR (Anticoag Therapy) (0.77-1.02) APTT (26.0-36.3) seconds Sodium (133-145) mmol/L Potassium (3.5-5.0) mmol/L Chloride (101-111) mmol/L Carbon Dioxide (22-32) mmol/L Anion Gap (2-11) mmol/L BUN (6-24) mg/dL Creatinine (0.67-1.17) mg/dL Est GFR ( Amer) (>60) Est GFR (Non-Af Amer) (>60) BUN/Creatinine Ratio (8-20) Glucose (70-100) mg/dL Lactic Acid 4.4 H* (0.5-2.0) mmol/L Calcium (8.6-10.3) mg/dL Total Bilirubin (0.2-1.0) mg/dL AST (13-39) U/L ALT (7-52) U/L Alkaline Phosphatase (34-104) U/L Troponin I (<0.04) ng/mL C-Reactive Protein (< 5.00) mg/L B-Natriuretic Peptide 101 H ( - 100) pg/mL Total Protein (6.4-8.9) g/dL Albumin (3.2-5.2) g/dL Globulin (2-4) g/dL Albumin/Globulin Ratio (1-3) Lipase (11.0-82.0) U/L Procalcitonin < 0.1 (<0.6) ng/mL Influenza A (Rapid) (Negative) Influenza B (Rapid) (Negative) 04/08/17 Range/Units 20:30 WBC (3.5-10.8) 10^3/ul RBC (4.0-5.4) 10^6/ul Hgb (14.0-18.0) g/dl Hct (42-52) % MCV (80-94) fL MCH (27-31) pg MCHC (31-36) g/dl RDW (10.5-15) % Plt Count (150-450) 10^3/ul MPV (7.4-10.4) um3 Neut % (Auto) (38-83) % Lymph % (Auto) (25-47) % Bates % (Auto) (0-7) % Eos % (Auto) (0-6) % Baso % (Auto) (0-2) % Absolute Neuts (auto) (1.5-7.7) 10^3/ul Absolute Lymphs (auto) (1.0-4.8) 10^3/ul Absolute Monos (auto) (0-0.8) 10^3/ul Absolute Eos (auto) (0-0.6) 10^3/ul Absolute Basos (auto) (0-0.2) 10^3/ul Absolute Nucleated RBC 10^3/ul Nucleated RBC % INR (Anticoag Therapy) (0.77-1.02) APTT (26.0-36.3) seconds Sodium (133-145) mmol/L Potassium (3.5-5.0) mmol/L Chloride (101-111) mmol/L Carbon Dioxide (22-32) mmol/L Anion Gap (2-11) mmol/L BUN (6-24) mg/dL Creatinine (0.67-1.17) mg/dL Est GFR ( Amer) (>60) Est GFR (Non-Af Amer) (>60) BUN/Creatinine Ratio (8-20) Glucose (70-100) mg/dL Lactic Acid (0.5-2.0) mmol/L Calcium (8.6-10.3) mg/dL Total Bilirubin (0.2-1.0) mg/dL AST (13-39) U/L ALT (7-52) U/L Alkaline Phosphatase (34-104) U/L Troponin I (<0.04) ng/mL C-Reactive Protein (< 5.00) mg/L B-Natriuretic Peptide ( - 100) pg/mL Total Protein (6.4-8.9) g/dL Albumin (3.2-5.2) g/dL Globulin (2-4) g/dL Albumin/Globulin Ratio (1-3) Lipase (11.0-82.0) U/L Procalcitonin (<0.6) ng/mL Influenza A (Rapid) Negative (Negative) Influenza B (Rapid) Positive A (Negative) Result Diagrams: 04/08/17 20:04 04/08/17 20:04 Lab Statement: Any lab studies that have been ordered have been reviewed, and results considered in the medical decision making process. - EKG 2035 Cardiac Rate: NL EKG Rhythm: Sinus Tachycardia - 102 BPM EKG Interpretation: Normal ST. PAC. Course/Dx - Course Course Of Treatment: BP noted and advised to follow up with PCP. Medications reviewed. ADMIT HOSPITALIST. CRITICAL CARE TIME LESS THAN 30 MINUTES. - Diagnoses Provider Diagnoses: Elevated BP without diagnosis of hypertension, Bronchitis, COPD (chronic obstructive pulmonary disease), Influenza - Physician Notifications Discussed Care of Patient With: Keshawn Delgadillo Time Discussed With Above Provider: 21:21 - Consulted Dr. Delgadillo who will see the pt. Discharge - Discharge Plan Condition: Stable Disposition: ADMITTED TO [facility] Referrals: Alondra Duncan MD [Primary Care Provider] - The documentation as recorded by the Babak ventura Sixian accurately reflects the service I personally performed and the decisions made by me, Kyle Denny MD.
--- NOTE | 2017-04-08 21:34 | RAD ---
HISTORY: Shortness of breath COMPARISONS: January 10, 2004 VIEWS: 1: frontal portable view of the chest at 9:11 PM FINDINGS: LINES AND TUBES: None. CARDIOMEDIASTINAL SILHOUETTE: The cardiomediastinal silhouette is normal for portable technique. PLEURA: The costophrenic angles are sharp. No pleural abnormalities are noted. LUNG PARENCHYMA: There is hyperinflation. ABDOMEN: The upper abdomen is clear. There is no subphrenic gas. BONES AND SOFT TISSUES: No bone or soft tissue abnormalities are noted. IMPRESSION: COPD. NO ACTIVE CARDIOPULMONARY DISEASE.
[2017-04-08] MEDS ORDERED: NS 0.9% 1000 ML* 1,000 ML IV ONE (22:08)
[2017-04-08] MEDS ORDERED: Albuterol/Ipratropium NEB.SOL* Albuterol 2.5 MG/Ipratropium 0.5 MG 3 ML INH PRN (22:08)
[2017-04-08] MEDS ORDERED: Acetaminophen TAB* 325 MG PO PRN (22:13)
[2017-04-08] MEDS ORDERED: NS 0.9% 1000 ML* 1,000 ML IV SCH (22:15)
[2017-04-08 22:35] LABS: Urine Appearance Cloudy; Urine Blood 1+ (Negative); Urine Color Yellow; Urine Ketones Negative (Negative); Urine Protein Negative (Negative); Urine Specific Gravity 1.018 (1.010-1.030); Urine Urobilinogen Negative (Negative)
[2017-04-09] MEDS ORDERED: Albuterol/Ipratropium NEB.SOL* Albuterol 2.5 MG/Ipratropium 0.5 MG 3 ML ONE (00:28)
--- NOTE | 2017-04-09 05:43 | HP ---
CC: Dr. Redd [facility] MEDICINE HISTORY AND PHYSICAL: DATE OF ADMISSION: 04/08/17 PRIMARY CARE PHYSICIAN: Dr. Redd. ATTENDING PHYSICIAN: Dr. Keshawn Delgadillo, (dictation provided by Hafsa Barbosa NP). CHIEF COMPLAINT: Shortness of breath. HISTORY OF PRESENT ILLNESS: Mr. Hawkins is an 81-year-old male with a past medical history of severe C OPD who smoked for over 60 years, but quit 8 weeks ago. He states that he began to feel unwell about 2 to 3 weeks ago. He followed up with his primary care physician, Dr. Redd. He started him on prednisone taper. He completed the taper, but continued to feel poorly. He followed up again with Joaquin Redd yesterday and prednisone was resumed. He is currently on 30 mg of prednisone per his rep ort. Mr. Hawkins's complaint throughout this time has just been shortness of breath. He reports bein g extremely dyspneic on exertion at this point and unable to walk a few feet without needing to stop and uses albuterol inhaler. He denies having any more frequent cough or any more productive cough. [place] has had no chest pain. He denies fever. He actually also denies myalgias or arthralgias. He repo rts up to this period of time his has also been unwell and has felt unwell. She is also in the emergency room today. In the emergency room, Mr. Hawkins had labs which showed that he had no leukocytosis. His CRP was only 17.55. His lactic acid is elevated to 4.4 and a flu swab was positive. His chest x-ray shows COPD w ith no active cardiopulmonary disease. The remainder of labs are unremarkable and he is currently sa tting well on room air, but is tachypneic. PAST MEDICAL HISTORY: COPD. MEDICATIONS: 1. Prednisone 30 mg p.o. daily via taper. 2. Albuterol inhaler 2 puffs inhaled q.4 hours p.r.n. 3. Ipratropium 1 vial inhaled b.i.d. 4. Spiriva 1 puff inhaled b.i.d. 5. Budesonide (Pulmicort) 1 vial inhaled b.i.d. ALLERGIES: No known drug allergies. FAMILY HISTORY: Patient reports his mother of old age. His dad related to cancer. He had 5 brother and 3 sisters who related to cancer, but he is unsure of the type of cancer that any of the siblings had. SOCIAL HISTORY: The patient has over 16-year history of smoking. Most recently he was smoking half pack a day. He quit 8 weeks ago. He drinks alcohol very occasionally. He does not report any drug use. He lives with his , who is his healthcare proxy. She is here in the emergency room and is sick as well. In the event that she is unable to be his proxy, Bonnie Durand would be his proxy i n her stead. REVIEW OF SYSTEMS: A 14-point review of systems was completed with Mr. Hawkins and all those not menti oned above were negative. PHYSICAL EXAMINATION GENERAL: Mr. Hawkins is sitting up in the bed. He is in no acute distress, although he does appear ta chypneic on exam. VITAL SIGNS: Temperature 98.5, pulse rate 103, respiratory rate 24, O2 saturation 96% on room air, b lood pressure 128/85. LUNGS: Actually clear, but diminished bilaterally with no accessory muscle use. There is no wheezing or rhonchi appreciated. HEART: S1, S2. No murmur, rub, or gallop and regular, but rapid. ABDOMEN: Soft, nontender with bowel sounds positive x4. EXTREMITIES: No cyanosis or edema. NEUROLOGIC: He is alert. He is oriented x3. He moves all extremities equally. There is no facial a symmetry or focal weakness. Extraocular movements are intact. SKIN: Intact. DIAGNOSTIC STUDIES/LAB DATA: WBC 5.5, hemoglobin 17.4, hematocrit 52, platelet count 166. INR 0.82 . Sodium 137, potassium 4.2, chloride 98, serum bicarbonate 27, BUN 20, creatinine 1.17, glucose 103 . Lactic acid 4.4. CRP 17.55. Procalcitonin less than 0.1. Lipase less than 10. Chest x-ray again shows no acute process. EKG shows sinus rhythm with no evidence of ischemia and a heart rate of about 100. ASSESSMENT: Mr. Hawkins is an 81-year-old male with past medical history of severe chronic obstructive pulmonary disease, who recently stopped smoking and now presents to the hospital with concerns for d yspnea, found to be flu positive. Our plans are for inpatient admission as I expect his length of st ay to be greater than 2 days for the followin. Sepsis with flu and chronic obstructive pulmonary disease exacerbation: The patient does have me et sepsis criteria via his tachycardia and tachypnea. He has no leukocytes, there is no fever. I th ink this is secondary to flu in the setting of chronic obstructive pulmonary disease exacerbation. [place] will be treated with Tamiflu for the flu. For his chronic obstructive pulmonary disease exacerbati on, plan to treat with Solu-Medrol as he had been on prednisone outpatient with no improvement and wi th doxycycline. I see no evidence that the patient currently has an acute bacterial component to his COPD as his procalcitonin is normal and chest x- ray is clear; however, I think given the severity o f his illness, he does deserve coverage for atypicals, and therefore I am using doxycycline. Patient has had appropriate amount of fluids in the emergency room at 30 mL/kg for his elevated lactic acid and we will be repeating that shortly. Patient has blood cultures drawn and those are pending. Then , also for chronic obstructive pulmonary disease exacerbation, we would like to have DuoNeb nebulizer s and he will have oxygen available as and when needed. 2. Code status is DNR/DNI and a form has been completed with him today. 3. Disposition to medical floor. TIME SPENT: Approximately 60 minutes was spent on the admission of this patient, more than half time spent with the patient at the bedside reviewing the events leading up to this hospitalization, perfo rming the physical examination, and reviewing my plan of care. HAFSA BARBOSA, JESUS [id number]/CPS #: [id number]
[2017-04-09] MEDS: Heparin VIAL(*) 5000 UNITS/ML VIAL (FIVE THOUSAND) SUBCUT SCH ×3 (05:46→20:21)
[2017-04-09] MEDS: Albuterol HFA INHALER* 8 gm MDI INH PRN (08:15)
[2017-04-09] MEDS: methylPREDNISolone 125 MG* 2 ML VIAL IV SCH ×2 (08:24→20:15)
[2017-04-09] MEDS: DOXYcycline CAP(*) 100 MG PO SCH ×2 (08:25→20:13)
[2017-04-09] MEDS: Oseltamivir CAP* 30 MG CAP PO SCH ×2 (08:25→20:13)
--- NOTE | 2017-04-09 08:41 | PN ---
Subjective Date of Service: 04/09/17 Interval History: C/o shortness of breath with exertion, occasional moist cough. Denies chest pain, Denies abd pain, n/v/d. Family History: Unchanged from Admission Social History: Unchanged from Admission Past Medical History: Unchanged from Admission Objective Active Medications: Acetaminophen (Tylenol Tab*) 650 mg PO Q6H PRN PRN Reason: PAIN Albuterol (Ventolin Hfa Inhaler*) 2 puff INH Q4H PRN PRN Reason: SOB/WHEEZING Last Admin: 04/09/17 08:15 Dose: 2 puff Albuterol/Ipratropium (Duoneb (Albuterol 2.5 Mg/Ipratropium 0.5 Mg)) 1 neb INH Q4H PRN PRN Reason: SOB/WHEEZING Doxycycline Hyclate (Vibramycin Cap(*)) 100 mg PO BID [facility] Last Admin: 04/09/17 08:25 Dose: 100 mg Heparin Sodium (Porcine) (Heparin Vial(*)) 5,000 units SUBCUT Q8HR [facility] Last Admin: 04/09/17 05:46 Dose: 5,000 units Methylprednisolone Sodium Succinate (Solu-Medrol 125mg *) 60 mg IV Q12H [facility] Last Admin: 04/09/17 08:24 Dose: 60 mg Oseltamivir Phosphate (Tamiflu Cap*) 30 mg PO BID [facility] Last Admin: 04/09/17 08:25 Dose: 30 mg Tiotropium [place] (Spiriva Respimat 2.5 Mcg(Nf)) 2 puff INH DAILY [facility] Vital Signs - 8 hr 04/09/17 03:28 Temperature 97.9 F Pulse Rate 96 Respiratory 20 Rate Blood Pressure 139/76 (mmHg) O2 Sat by Pulse 97 Oximetry Oxygen Devices in Use Now: Nasal Cannula Appearance: appears mildly short of breath resting in bed Eyes: No Scleral Icterus Ears/Nose/Mouth/Throat: Clear Oropharnyx, Mucous Membranes Moist Neck: NL Appearance and Movements; NL JVP, Trachea Midline Respiratory: Symmetrical Chest Expansion and Respiratory Effort, - - diminished with expiratory wheezes t/o bilaterally. Cardiovascular: NL Sounds; No Murmurs; No JVD, No Edema Abdominal: NL Sounds; No Tenderness; No Distention Extremities: No Edema, No Clubbing, Cyanosis Skin: No Rash or Ulcers Neurological: Alert and Oriented x 3 Nutrition: Taking PO's Result Diagrams: 04/08/17 20:04 04/08/17 20:04 Additional Lab and Data: Lab Results 04/08/17 04/08/17 04/08/17 Range/Units 20:04 20:04 20:04 WBC 5.5 (3.5-10.8) 10^3/ul RBC 5.44 H (4.0-5.4) 10^6/ul Hgb 17.4 (14.0-18.0) g/dl Hct 52 (42-52) % MCV 96 H (80-94) fL MCH 32 H (27-31) pg MCHC 33 (31-36) g/dl RDW 14 (10.5-15) % Plt Count 166 (150-450) 10^3/ul MPV 8 (7.4-10.4) um3 Neut % (Auto) 82.4 (38-83) % Lymph % (Auto) 7.4 L (25-47) % [place] % (Auto) 10.1 H (0-7) % Eos % (Auto) 0 (0-6) % Baso % (Auto) 0.1 (0-2) % Absolute Neuts (auto) 4.6 (1.5-7.7) 10^3/ul Absolute Lymphs (auto) 0.4 L (1.0-4.8) 10^3/ul Absolute Monos (auto) 0.6 (0-0.8) 10^3/ul Absolute Eos (auto) 0 (0-0.6) 10^3/ul Absolute Basos (auto) 0 (0-0.2) 10^3/ul Absolute Nucleated RBC 0 10^3/ul Nucleated RBC % 0.2 INR (Anticoag Therapy) 0.82 (0.77-1.02) APTT 30.3 (26.0-36.3) seconds Sodium 137 (133-145) mmol/L Potassium 4.2 (3.5-5.0) mmol/L Chloride 98 L (101-111) mmol/L Carbon Dioxide 27 (22-32) mmol/L Anion Gap 12 H (2-11) mmol/L BUN 20 (6-24) mg/dL Creatinine 1.17 (0.67-1.17) mg/dL Est GFR ( Amer) 77.1 (>60) Est GFR (Non-Af Amer) 60.0 (>60) BUN/Creatinine Ratio 17.1 (8-20) Glucose 103 H (70-100) mg/dL Lactic Acid (0.5-2.0) mmol/L Calcium 9.4 (8.6-10.3) mg/dL Total Bilirubin 0.30 (0.2-1.0) mg/dL AST 24 (13-39) U/L ALT 24 (7-52) U/L Alkaline Phosphatase 116 H (34-104) U/L Troponin I 0.01 (<0.04) ng/mL C-Reactive Protein 17.55 H (< 5.00) mg/L B-Natriuretic Peptide ( - 100) pg/mL Total Protein 7.2 (6.4-8.9) g/dL Albumin 3.9 (3.2-5.2) g/dL Globulin 3.3 (2-4) g/dL Albumin/Globulin Ratio 1.2 (1-3) Lipase < 10 L (11.0-82.0) U/L Procalcitonin (<0.6) ng/mL Influenza A (Rapid) (Negative) Influenza B (Rapid) (Negative) 04/08/17 04/08/17 04/08/17 Range/Units 20:04 20:04 20:04 WBC (3.5-10.8) 10^3/ul RBC (4.0-5.4) 10^6/ul Hgb (14.0-18.0) g/dl Hct (42-52) % MCV (80-94) fL MCH (27-31) pg MCHC (31-36) g/dl RDW (10.5-15) % Plt Count (150-450) 10^3/ul MPV (7.4-10.4) um3 Neut % (Auto) (38-83) % Lymph % (Auto) (25-47) % [place] % (Auto) (0-7) % Eos % (Auto) (0-6) % Baso % (Auto) (0-2) % Absolute Neuts (auto) (1.5-7.7) 10^3/ul Absolute Lymphs (auto) (1.0-4.8) 10^3/ul Absolute Monos (auto) (0-0.8) 10^3/ul Absolute Eos (auto) (0-0.6) 10^3/ul Absolute Basos (auto) (0-0.2) 10^3/ul Absolute Nucleated RBC 10^3/ul Nucleated RBC % INR (Anticoag Therapy) (0.77-1.02) APTT (26.0-36.3) seconds Sodium (133-145) mmol/L Potassium (3.5-5.0) mmol/L Chloride (101-111) mmol/L Carbon Dioxide (22-32) mmol/L Anion Gap (2-11) mmol/L BUN (6-24) mg/dL Creatinine (0.67-1.17) mg/dL Est GFR ( Amer) (>60) Est GFR (Non-Af Amer) (>60) BUN/Creatinine Ratio (8-20) Glucose (70-100) mg/dL Lactic Acid 4.4 H* (0.5-2.0) mmol/L Calcium (8.6-10.3) mg/dL Total Bilirubin (0.2-1.0) mg/dL AST (13-39) U/L ALT (7-52) U/L Alkaline Phosphatase (34-104) U/L Troponin I (<0.04) ng/mL C-Reactive Protein (< 5.00) mg/L B-Natriuretic Peptide 101 H ( - 100) pg/mL Total Protein (6.4-8.9) g/dL Albumin (3.2-5.2) g/dL Globulin (2-4) g/dL Albumin/Globulin Ratio (1-3) Lipase (11.0-82.0) U/L Procalcitonin < 0.1 (<0.6) ng/mL Influenza A (Rapid) (Negative) Influenza B (Rapid) (Negative) 04/08/17 Range/Units 20:30 WBC (3.5-10.8) 10^3/ul RBC (4.0-5.4) 10^6/ul Hgb (14.0-18.0) g/dl Hct (42-52) % MCV (80-94) fL MCH (27-31) pg MCHC (31-36) g/dl RDW (10.5-15) % Plt Count (150-450) 10^3/ul MPV (7.4-10.4) um3 Neut % (Auto) (38-83) % Lymph % (Auto) (25-47) % [place] % (Auto) (0-7) % Eos % (Auto) (0-6) % Baso % (Auto) (0-2) % Absolute Neuts (auto) (1.5-7.7) 10^3/ul Absolute Lymphs (auto) (1.0-4.8) 10^3/ul Absolute Monos (auto) (0-0.8) 10^3/ul Absolute Eos (auto) (0-0.6) 10^3/ul Absolute Basos (auto) (0-0.2) 10^3/ul Absolute Nucleated RBC 10^3/ul Nucleated RBC % INR (Anticoag Therapy) (0.77-1.02) APTT (26.0-36.3) seconds Sodium (133-145) mmol/L Potassium (3.5-5.0) mmol/L Chloride (101-111) mmol/L Carbon Dioxide (22-32) mmol/L Anion Gap (2-11) mmol/L BUN (6-24) mg/dL Creatinine (0.67-1.17) mg/dL Est GFR ( Amer) (>60) Est GFR (Non-Af Amer) (>60) BUN/Creatinine Ratio (8-20) Glucose (70-100) mg/dL Lactic Acid (0.5-2.0) mmol/L Calcium (8.6-10.3) mg/dL Total Bilirubin (0.2-1.0) mg/dL AST (13-39) U/L ALT (7-52) U/L Alkaline Phosphatase (34-104) U/L Troponin I (<0.04) ng/mL C-Reactive Protein (< 5.00) mg/L B-Natriuretic Peptide ( - 100) pg/mL Total Protein (6.4-8.9) g/dL Albumin (3.2-5.2) g/dL Globulin (2-4) g/dL Albumin/Globulin Ratio (1-3) Lipase (11.0-82.0) U/L Procalcitonin (<0.6) ng/mL Influenza A (Rapid) Negative (Negative) Influenza B (Rapid) Positive A (Negative) Assess/Plan/Problems-Billing Assessment: Mr. Hawkins is an 81 y.o male that carries a hx of COPD was brought to the emergency room for increased shortness of breath especially with exertion progressively worsening over the past week. Tested positive for the flu A in the ER. was admitted for sepsis, FLU and COPD excerbation. - Patient Problems (1) Influenza Current Visit: Yes Status: Acute Code(s): J11.1 - FLU DUE TO UNIDENTIFIED INFLUENZA VIRUS W OTH RESP MANIFEST SNOMED Code(s): 1939358 Comment: Tamiflu 75mg po BID for 5 days (2) COPD exacerbation Current Visit: Yes Status: Acute Code(s): J44.1 - CHRONIC OBSTRUCTIVE PULMONARY DISEASE W (ACUTE) EXACERBATION SNOMED Code(s): 420128156 Comment: ~ will continue Albuterol nebulizers Q 4 hours while awake, albuterol inhaler as needed ~ Spiriva 1 puff daily ~ Solumedrol IV 60 mg Q 12~ will convert to PO as breathing improves ~ will continue Doxycycline to cover atypical pneumonia, will continue ceftriaxone as well (3) Sepsis Current Visit: Yes Status: Acute Comment: Improving- Lactic acid improve to 2.4 ~ will repeat level in the AM Continues to be tachycardic ~ suspect this could be related COPD excerbation remains ~ tachypneic with respirations between 22 to 28 IV hydration was adequate in the ED for replacement Will continue on Doxycycline and ceftriaxone (4) DVT prophylaxis Current Visit: Yes Status: Acute Code(s): [id number] - SNOMED Code(s): 505357733 Comment: Heparin SUBQ (5) DNR (do not resuscitate) Current Visit: Yes Status: Acute (6) DNI (do not intubate) Current Visit: Yes Status: Acute Code(s): Z78.9 - OTHER SPECIFIED HEALTH STATUS SNOMED Code(s): 617597738 Status and Disposition: inpatient
[2017-04-09] MEDS ORDERED: Budesonide NEB* 0.25 MG/2 ML NEB.SOLN INH SCH (09:00)
[2017-04-09] MEDS ORDERED: Tiotropium Respimt 2.5 mcg(NF) 1 PUFF MDI INH SCH (09:00)
[2017-04-09] MEDS ORDERED: Spiriva Inhaler DEVICE* 1 EACH DEVICE SCH (12:00)
[2017-04-09] MEDS: Albuterol 2.5 MG/3 ML NEB.SOL* (0.083%) INH SCH ×2 (13:18→14:21)
[2017-04-09] MEDS: Tiotropium CAP.INH* CAP.INH/18 MCG (USE ORDER SET !) INH SCH (13:25)
[2017-04-09] MEDS: Nystatin SUSPENSION* 100000 UNITS/ML 5 ML UDC PO SCH ×3 (13:30→20:13)
[2017-04-09] MEDS: cefTRIAXone(*) 1 GM in NS 0.9% 50 ML* 50 ML IVPB SCH (17:50)
[2017-04-09] MEDS: Albuterol/Ipratropium NEB.SOL* Albuterol 2.5 MG/Ipratropium 0.5 MG 3 ML INH SCH ×2 (19:57→23:08)
[2017-04-09] MEDS ORDERED: Azithromycin IV(*) 250 MG in NS 0.9% 250 ML* 250 ML IVPB SCH (20:00)
[2017-04-09] MEDS ORDERED: cefTRIAXone(*) 1 GM in NS 0.9% 50 ML* 50 ML IVPB SCH (21:00)
[2017-04-10] MEDS: Albuterol/Ipratropium NEB.SOL* Albuterol 2.5 MG/Ipratropium 0.5 MG 3 ML INH SCH ×4 (03:18→19:53)
[2017-04-10] MEDS: Heparin VIAL(*) 5000 UNITS/ML VIAL (FIVE THOUSAND) SUBCUT SCH ×3 (05:27→22:02)
[2017-04-10 06:30] LABS: ABS Basophils 0 10^3/ul (0-0.2); ABS Eosinophils 0 10^3/ul (0-0.6); ABS Lymphocytes 0.4 10^3/ul (1.0-4.8); ABS Monocytes 0.5 10^3/ul (0-0.8); ABS Neutrophils 6.8 10^3/ul (1.5-7.7); ABS Nucleated RBC 0 10^3/ul; Eosinophil % 0 % (0-6); Hematocrit 46 % (42-52); Hemoglobin 15.6 g/dl (14.0-18.0); Lymphocyte % 5.3 % (25-47); Mean Corpuscular HGB Conc 34 g/dl (31-36); Mean Corpuscular Hemoglobin 32 pg (27-31); Mean Corpuscular Volume 95 fL (80-94); Mean Platelet Volume 8 um3 (7.4-10.4); Nucleated Red Blood Cells % 0; Platelet Count 151 10^3/ul (150-450); Red Blood Count 4.85 10^6/ul (4.0-5.4); Red Cell Distribution Width 14 % (10.5-15); White Blood Count 7.7 10^3/ul (3.5-10.8)
[2017-04-10 06:47] LABS: EGFR Non-African American 70.3 (>60)
[2017-04-10] MEDS: Albuterol HFA INHALER* 8 gm MDI INH PRN ×2 (07:54→15:49)
[2017-04-10] MEDS: Tiotropium CAP.INH* CAP.INH/18 MCG (USE ORDER SET !) INH SCH (07:57)
[2017-04-10] MEDS: DOXYcycline CAP(*) 100 MG PO SCH ×2 (09:40→21:55)
[2017-04-10] MEDS: Nystatin SUSPENSION* 100000 UNITS/ML 5 ML UDC PO SCH ×4 (09:40→22:04)
[2017-04-10] MEDS: Oseltamivir CAP* 30 MG CAP PO SCH ×2 (09:40→21:55)
[2017-04-10] MEDS: methylPREDNISolone 125 MG* 2 ML VIAL IV SCH ×2 (09:40→21:57)
--- NOTE | 2017-04-10 11:18 | PN ---
Subjective Date of Service: 04/10/17 Interval History: Patient seen and examined at bedside. Denies fever, chills, shortness of breath , chest discomfort, N/V/D. Pt states that his breathing is much better. Pt states that he doesn't have O2 at home, but his states that they have been trying to get his breathing improved for 3 weeks and she feels that he needs to go home with O2. Pt has an occasional moist cough that has been non-productive. Tele: Sinus rhythm, rate 90's with a few PVCs. Family History: Unchanged from Admission Social History: Unchanged from Admission Past Medical History: Unchanged from Admission Objective Active Medications: Acetaminophen (Tylenol Tab*) 650 mg PO Q6H PRN Reason: PAIN Albuterol (Ventolin Hfa Inhaler*) 2 puff INH Q4H PRN Reason: SOB/WHEEZING Albuterol/Ipratropium (Duoneb (Albuterol 2.5 Mg/Ipratropium 0.5 Mg)) 1 neb INH Q4H PRN Reason: SOB/WHEEZING Albuterol/Ipratropium (Duoneb (Albuterol 2.5 Mg/Ipratropium 0.5 Mg)) 1 neb INH [id number] AWAKE PATITO Device (Tiotropium Inhaler Device*) 1 each .SEE ORDER .USE w/ SPIRIVA CAPS [facility] Doxycycline Hyclate (Vibramycin Cap(*)) 100 mg PO BID [facility] Heparin Sodium (Porcine) (Heparin Vial(*)) 5,000 units SUBCUT Q8HR [facility] Ceftriaxone Sodium 1 gm/ (Sodium Chloride) 50 mls @ 200 mls/hr IVPB Q24H [facility] Methylprednisolone Sodium Succinate (Solu-Medrol 125mg *) 60 mg IV Q12H [facility] Nystatin (Nystatin Suspension*) 500,000 units PO QID [facility] Stop: 04/16/17 11:36 Oseltamivir Phosphate (Tamiflu Cap*) 30 mg PO BID [facility] Tiotropium [place] (Spiriva Cap.Inh*) 1 cap INH DAILY [facility] Vital Signs - 8 hr 04/10/17 04/10/17 04/10/17 03:21 07:50 07:59 Temperature 97.2 F Pulse Rate 101 88 101 Respiratory 24 24 17 Rate Blood Pressure 127/74 (mmHg) O2 Sat by Pulse 97 97 98 Oximetry Oxygen Devices in Use Now: Nasal Cannula - 2L Appearance: NAD, sitting up in bed Ears/Nose/Mouth/Throat: Mucous Membranes Moist Respiratory: Symmetrical Chest Expansion and Respiratory Effort, - - Lung sounds diminished with exp wheezing Cardiovascular: NL Sounds; No Murmurs; No JVD, RRR Abdominal: NL Sounds; No Tenderness; No Distention Extremities: No Edema Skin: No Rash or Ulcers Neurological: Alert and Oriented x 3, NL Muscle Strength and Tone Lines/Tubes/Other Access: Clean, Dry and Intact Peripheral IV - site benign Nutrition: Taking PO's Result Diagrams: 04/10/17 05:58 04/10/17 05:58 Additional Lab and Data: . Assess/Plan/Problems-Billing Assessment: Mr. Hawkins is an 81 y.o male that carries a hx of COPD was brought to the emergency room for increased shortness of breath especially with exertion progressively worsening over the past week. Tested positive for the flu B in the ER. - Patient Problems (1) COPD exacerbation Code(s): J44.1 - CHRONIC OBSTRUCTIVE PULMONARY DISEASE W (ACUTE) EXACERBATION SNOMED Code(s): 871787821 Comment: - Afebrile and no leukocytosis - Blood cultures, negative day 1 - Will get a sputum culture if able to produce a sample - Continue Solumedrol IV 60 mg Q 12, convert to PO in AM - Continue Albuterol nebulizers Q 4 hours while awake, albuterol inhaler as needed, and Spiriva - Continue Doxycycline to cover atypical pneumonia and ceftriaxone (2) Influenza Code(s): J11.1 - FLU DUE TO UNIDENTIFIED INFLUENZA VIRUS W OTH RESP MANIFEST SNOMED Code(s): 8722455 Comment: - Influenza B - Continue Tamiflu (3) Sepsis Comment: - Improving - Lactic acid improved to 2.8 - Continues to be tachycardic, suspect this could be related COPD excerbation, remains and tachypneic with respirations between 20 to 24 - Continue on Doxycycline and ceftriaxone (4) Oral [place] Code(s): B37.0 - CANDIDAL STOMATITIS SNOMED Code(s): 79836946 Comment: - Continue Nystatin (5) DVT prophylaxis Current Visit: Yes Status: Acute Code(s): [id number] - SNOMED Code(s): 771952718 Comment: Heparin SUBQ (6) DNR (do not resuscitate) Status and Disposition: Inpatient. Discharge to home when medically stable.
[2017-04-10] MEDS: cefTRIAXone(*) 1 GM in NS 0.9% 50 ML* 50 ML IVPB SCH (16:29)
[2017-04-10] MEDS: Budesonide NEB* 0.5 MG/2 ML NEB.SOLN INH SCH (19:54)
[2017-04-11] MEDS: Albuterol/Ipratropium NEB.SOL* Albuterol 2.5 MG/Ipratropium 0.5 MG 3 ML INH SCH ×2 (00:47→09:12)
[2017-04-11] MEDS: Heparin VIAL(*) 5000 UNITS/ML VIAL (FIVE THOUSAND) SUBCUT SCH ×3 (06:04→21:46)
[2017-04-11] MEDS: Nystatin SUSPENSION* 100000 UNITS/ML 5 ML UDC PO SCH ×4 (09:04→21:45)
[2017-04-11] MEDS: methylPREDNISolone 125 MG* 2 ML VIAL IV SCH (09:04)
[2017-04-11] MEDS: DOXYcycline CAP(*) 100 MG PO SCH ×2 (09:04→21:44)
[2017-04-11] MEDS: Oseltamivir CAP* 30 MG CAP PO SCH ×2 (09:04→21:44)
[2017-04-11] MEDS: Budesonide NEB* 0.5 MG/2 ML NEB.SOLN INH SCH ×2 (09:11→20:19)
[2017-04-11] MEDS: Tiotropium CAP.INH* CAP.INH/18 MCG (USE ORDER SET !) INH SCH (09:13)
[2017-04-11] MEDS ORDERED: Albuterol 2.5 MG/3 ML NEB.SOL* (0.083%) INH SCH (13:00)
[2017-04-11 13:18] LABS: EGFR Non-African American 65.1 (>60)
--- NOTE | 2017-04-11 14:36 | PN ---
Subjective Date of Service: 04/11/17 Interval History: Patient seen and examined at bedside. Denies fever, chills, shortness of breath , chest discomfort, N/V/D. Pt states that his breathing is feeling much better. Tele: Sinus tach, rate 90-120's. Pt noted to have HR up to 140's, sustained for no more than 15 minutes. Family History: Unchanged from Admission Social History: Unchanged from Admission Past Medical History: Unchanged from Admission Objective Active Medications: Acetaminophen (Tylenol Tab*) 650 mg PO Q6H PRN Reason: PAIN Albuterol (Ventolin Hfa Inhaler*) 2 puff INH Q4H PRN Reason: SOB/WHEEZING Albuterol (Ventolin 2.5 Mg/3 Ml Neb.Nancy*) 2.5 mg INH [id number] AWAKE PATITO Albuterol/Ipratropium (Duoneb (Albuterol 2.5 Mg/Ipratropium 0.5 Mg)) 1 neb INH Q4H PRN Reason: SOB/WHEEZING Budesonide (Pulmicort Neb*) 0.5 mg INH RT.BID [facility] Device (Tiotropium Inhaler Device*) 1 each .SEE ORDER .USE w/ SPIRIVA CAPS [facility] Doxycycline Hyclate (Vibramycin Cap(*)) 100 mg PO BID [facility] Heparin Sodium (Porcine) (Heparin Vial(*)) 5,000 units SUBCUT Q8HR [facility] Ceftriaxone Sodium 1 gm/ (Sodium Chloride) 50 mls @ 200 mls/hr IVPB Q24H [facility] Methylprednisolone Sodium Succinate (Solu-Medrol 125mg *) 60 mg IV Q12H [facility] Nystatin (Nystatin Suspension*) 500,000 units PO QID [facility] Stop: 04/16/17 11:36 Oseltamivir Phosphate (Tamiflu Cap*) 30 mg PO BID [facility] Tiotropium [place] (Spiriva Cap.Inh*) 1 cap INH DAILY [facility] Vital Signs - 8 hr 04/11/17 04/11/17 04/11/17 07:45 08:00 09:21 Temperature 97.3 F Pulse Rate 90 101 Respiratory 28 18 18 Rate Blood Pressure 114/63 (mmHg) O2 Sat by Pulse 99 96 Oximetry 04/11/17 04/11/17 11:21 14:17 Temperature 97.7 F Pulse Rate 108 93 Respiratory 28 18 Rate Blood Pressure 132/73 (mmHg) O2 Sat by Pulse 97 97 Oximetry Oxygen Devices in Use Now: Nasal Cannula - 3L Appearance: NAD, sitting up in bed Respiratory: Symmetrical Chest Expansion and Respiratory Effort, - - Lung sounds with exp wheezing Cardiovascular: NL Sounds; No Murmurs; No JVD, RRR Abdominal: NL Sounds; No Tenderness; No Distention Extremities: No Edema Skin: No Rash or Ulcers Neurological: Alert and Oriented x 3, NL Muscle Strength and Tone Lines/Tubes/Other Access: Clean, Dry and Intact Peripheral IV - site benign Nutrition: Taking PO's Result Diagrams: 04/10/17 05:58 04/11/17 12:49 Additional Lab and Data: . Assess/Plan/Problems-Billing Assessment: Mr. Hawkins is an 81 y.o male that carries a hx of COPD was brought to the emergency room for increased shortness of breath especially with exertion progressively worsening over the past week. Tested positive for the flu B in the ER. - Patient Problems (1) COPD exacerbation Code(s): J44.1 - CHRONIC OBSTRUCTIVE PULMONARY DISEASE W (ACUTE) EXACERBATION SNOMED Code(s): 349526229 Comment: - Afebrile and no leukocytosis - Blood cultures, negative day 2 - Will get a sputum culture if able to produce a sample - Change to Prednisone in the AM - Continue Albuterol nebulizers Q 4 hours while awake, albuterol inhaler as needed, and Spiriva - Continue Doxycycline to cover atypical pneumonia and ceftriaxone (2) Influenza Code(s): J11.1 - FLU DUE TO UNIDENTIFIED INFLUENZA VIRUS W OTH RESP MANIFEST SNOMED Code(s): 3201837 Comment: - Influenza B - Continue Tamiflu (3) Sepsis Comment: - Improving - Lactic acid improved to 2.8 - Continues to be tachycardic, suspect this could be related COPD excerbation, remains and tachypneic - Continue on Doxycycline and ceftriaxone (4) Tachycardia Code(s): R00.0 - TACHYCARDIA, UNSPECIFIED SNOMED Code(s): 1252852 Comment: - Suspect secondary to acute illness - Will change albuterol to xopenex as this may be contributing to tachycardia (5) Oral [place] Code(s): B37.0 - CANDIDAL STOMATITIS SNOMED Code(s): 57637406 Comment: - Continue Nystatin (6) DVT prophylaxis Code(s): VHX7100 - SNOMED Code(s): 843821914 Comment: - Heparin SQ (7) DNR (do not resuscitate) Status and Disposition: Inpatient. Discharge to home when medically stable.
[2017-04-11] MEDS: cefTRIAXone(*) 1 GM in NS 0.9% 50 ML* 50 ML IVPB SCH (16:23)
[2017-04-11] MEDS: Levalbuterol 0.63MG/3ML NEB* UNIT OF USE INH SCH (20:19)
[2017-04-12] MEDS: Levalbuterol 0.63MG/3ML NEB* UNIT OF USE INH SCH ×2 (02:07→09:21)
[2017-04-12] MEDS: Heparin VIAL(*) 5000 UNITS/ML VIAL (FIVE THOUSAND) SUBCUT SCH (06:11)
[2017-04-12] MEDS ORDERED: predniSONE TAB* 50 MG PO SCH (09:00)
[2017-04-12] MEDS: DOXYcycline CAP(*) 100 MG PO SCH (09:06)
[2017-04-12] MEDS: Oseltamivir CAP* 30 MG CAP PO SCH (09:06)
[2017-04-12] MEDS: Nystatin SUSPENSION* 100000 UNITS/ML 5 ML UDC PO SCH (09:06)
[2017-04-12] MEDS ORDERED: Levalbuterol 1.25MG/0.5ML NEB ONE (09:18)
[2017-04-12] MEDS: Budesonide NEB* 0.5 MG/2 ML NEB.SOLN INH SCH (09:21)
[2017-04-12] MEDS: Tiotropium CAP.INH* CAP.INH/18 MCG (USE ORDER SET !) INH SCH (09:25)
[2017-04-12 10:03] VITALS: BP 118/74
--- NOTE | 2017-04-12 10:21 | PN ---
Subjective Date of Service: 04/12/17 Interval History: Patient seen and examined at bedside. Denies fever, chills, chest discomfort, shortness of breath (at baseline and no longer increased), N/V/D. Tele: Sinus tachy, rate 90-100's. Family History: Unchanged from Admission Social History: Unchanged from Admission Past Medical History: Unchanged from Admission Objective Active Medications: Acetaminophen (Tylenol Tab*) 650 mg PO Q6H PRN Reason: PAIN Albuterol (Ventolin Hfa Inhaler*) 2 puff INH Q4H PRN Reason: SOB/WHEEZING Budesonide (Pulmicort Neb*) 0.5 mg INH RT.BID PATITO Device (Tiotropium Inhaler Device*) 1 each .SEE ORDER .USE w/ SPIRIVA CAPS PATITO Doxycycline Hyclate (Vibramycin Cap(*)) 100 mg PO BID [facility] Heparin Sodium (Porcine) (Heparin Vial(*)) 5,000 units SUBCUT Q8HR [facility] Ceftriaxone Sodium 1 gm/ (Sodium Chloride) 50 mls @ 200 mls/hr IVPB Q24H PATITO Levalbuterol HCl (Xopenex 0.63mg/3ml Neb*) 0.63 mg INH RT.[id number] AWAKE PATITO Nystatin (Nystatin Suspension*) 500,000 units PO QID [facility] Stop: 04/16/17 11:36 Oseltamivir Phosphate (Tamiflu Cap*) 30 mg PO BID [facility] Prednisone (Deltasone Tab*) 50 mg PO DAILY [facility] Tiotropium [place] (Spiriva Cap.Inh*) 1 cap INH DAILY [facility] Vital Signs - 8 hr 04/12/17 04/12/17 04/12/17 04:43 07:43 08:00 Temperature 97.5 F 97.9 F Pulse Rate 84 91 Respiratory 28 22 22 Rate Blood Pressure 125/63 118/74 (mmHg) O2 Sat by Pulse 97 95 Oximetry 04/12/17 09:25 Temperature Pulse Rate 88 Respiratory Rate Blood Pressure (mmHg) O2 Sat by Pulse 96 Oximetry Oxygen Devices in Use Now: Nasal Cannula - 2L Appearance: NAD, sitting up in bed Ears/Nose/Mouth/Throat: Mucous Membranes Moist Respiratory: Symmetrical Chest Expansion and Respiratory Effort, Clear to Auscultation - , diminished Cardiovascular: NL Sounds; No Murmurs; No JVD, RRR - , tachy Extremities: No Edema Skin: No Rash or Ulcers Neurological: Alert and Oriented x 3, NL Muscle Strength and Tone Lines/Tubes/Other Access: Clean, Dry and Intact Peripheral IV - site benign Nutrition: Taking PO's Result Diagrams: 04/10/17 05:58 04/11/17 12:49 Additional Lab and Data: . Assess/Plan/Problems-Billing Assessment: Mr. Hawkins is an 81 y.o male that carries a hx of COPD was brought to the emergency room for increased shortness of breath especially with exertion progressively worsening over the past week. Tested positive for the flu B in the ER. - Patient Problems (1) COPD exacerbation Code(s): J44.1 - CHRONIC OBSTRUCTIVE PULMONARY DISEASE W (ACUTE) EXACERBATION SNOMED Code(s): 345251292 Comment: - Afebrile and no leukocytosis - Blood cultures, negative day 3 - Continue Prednisone - Continue xopenex nebulizers Q 6H PRN (2) Influenza Code(s): J11.1 - FLU DUE TO UNIDENTIFIED INFLUENZA VIRUS W OTH RESP MANIFEST SNOMED Code(s): 4475705 Comment: - Influenza B - Continue Tamiflu (3) Sepsis Comment: - Improving - Lactic acid improved to 2.8 - Continues to be tachycardic, suspect this could be related COPD excerbation, remains and tachypneic - Continue on Doxycycline and ceftriaxone (4) Tachycardia Code(s): R00.0 - TACHYCARDIA, UNSPECIFIED SNOMED Code(s): 2451546 Comment: - Improving - Suspect secondary to acute illness - Continue xopenex as albuterol may have be contributing to tachycardia (5) Oral [place] Code(s): B37.0 - CANDIDAL STOMATITIS SNOMED Code(s): 11195518 Comment: - Continue Nystatin (6) DVT prophylaxis Code(s): IXW3663 - SNOMED Code(s): 639607242 (7) DNR (do not resuscitate) Status and Disposition: Inpatient. Stable for discharge to home today.
--- NOTE | 2017-04-13 14:18 | DS ---
CC: Alondra Redd MD * DISCHARGE SUMMARY: DATE OF ADMISSION: 04/08/17 DATE OF DISCHARGE: 04/12/17 ATTENDING PHYSICIAN: Bhupendra Bunn MD * (dictated by Dave Bustillo NP). PRIMARY CARE PROVIDER: Alondra Redd MD PRIMARY DIAGNOSES: 1. Influenza B. 2. Chronic obstructive pulmonary disease exacerbation. 3. Low suspicion for community-acquired pneumonia. SECONDARY DIAGNOSIS: Chronic obstructive pulmonary disease. STUDIES WHILE IN THE HOSPITAL: 1. Chest x-ray on 04/08/17. Radiologist's impression: No active cardiopulmonary disease, COPD. DISCHARGE MEDICATIONS: [place] Medications: 1. Tamiflu 30 mg oral twice daily for 2 more doses. 2. Nystatin 500,000 units oral 4 times daily, swish and spit daily for 4 more days. 3. Xopenex 0.63 mg inhalation every 6 hours as needed for shortness of breath or wheezing. 4. Prednisone take 50 mg oral for 2 days, followed by 40 mg oral for 3 days, followed by 30 mg oral for 3 days, followed by 20 mg oral for 3 days, followed by 10 mg oral for 3 days and then stop. Continued Home Medications: 1. Spiriva Respimat 1 puff inhalation twice daily. 2. Pulmicort 1 vial inhalation twice daily. 3. Albuterol HFA inhaler 2 puffs inhalation every 4 hours as needed for shortness of breath or wheeze. Discontinued Home Medication: Ipratropium nebulizer. HISTORY OF PRESENT ILLNESS/HOSPITAL COURSE: Mr. Hawkins is an 81-year-old male with past medical history significant for COPD, who is a current smoker, who reports quitting 8 weeks ago. He had been feeling unwell for 2 to 3 weeks. Followed with his primary care provider, Dr. Redd, who started him on prednisone taper. He completed the taper, but continued to feel poorly. He then saw Dr. Redd again and he was resumed on prednisone. Mr. Hawkins felt short of breath complaining of extreme dyspnea with exertion to the point he was unable to walk a few feet and needed to stop and uses albuterol inhaler. He denied having a more frequent cough or more productive cough. He denied any chest pain or fevers. He denied any joint or muscle pain. His had also been feeling unwell and together they presented to the emergency room for further evaluation. While in the emergency room, Mr. Hawkins had no leukocytosis. His CRP was 17.55. He had a lactic acid elevated to 4.4. He had influenza B flu swab that was positive. He had a chest x-ray showing COPD. No active cardiopulmonary disease. The remainder of his labs were unremarkable and he was satting well on room air, but was tachypneic. The hospitalists were asked to evaluate the patient for admission. While in the hospital, the patient was treated for COPD exacerbation with IV methylprednisolone. Additionally due to concerns of his severity of illness and the possibility of atypical community-acquired pneumonia, he was placed on doxycycline. He had blood cultures that were negative. He was placed on around the clock nebulizers. He was also using oxygen. He was placed on Tamiflu that was renally dosed. He also during his stay developed nystatin, was placed on nystatin swish and spit. During his stay, he was found to be tachycardic with heart rate sometimes into the 120s to 140s with ambulation. We suspect this was secondary to his acute illness. This did improve during his stay. Additionally, his albuterol had been discontinued and he was changed to Xopenex and this appeared to assist with his tachycardia. The patient was not requiring supplemental oxygen at rest, but was requiring 2 L with ambulation. He had another set of blood cultures. No leukocytosis, was afebrile. Completed a 4-day course of ceftriaxone and doxycycline for his _ atypical pneumonia. This will not be continued at discharge. Mr. Hawkins is stable for discharge home today. Vital signs are as follows: Temperature 97.9, heart rate 91, respiratory rate 22, O2 sat 95% on 2 L via nasal cannula, blood pressure 118/74. DISCHARGE PLAN: Mr. Hawkins will be discharged to home. Activity as tolerated. In regards to his Influenza B, he needs 2 more doses of Tamiflu and this has been renally dosed at 30 mg dosage twice daily. In regards to the possibility of having an atypical pneumonia, his chest x-ray was clear. He had expiratory wheezes. He received a 4-day course. It was not felt that he needed continuation of antibiotics at discharge. The patient's shortness of breath improved to his baseline. He was encouraged to stop smoking. For COPD exacerbation, he was placed on prednisone taper with instructions to take 50 mg oral twice daily starting in the morning followed by 40 mg for 3 days, 30 mg for 3 days, 20 mg for 3 days, and 10 mg oral for 3 days and then stop. For his oral candidiasis, he was placed on nystatin swish and spit 500,000 units 4 times daily for 4 more days to complete a 7- day course. He was sent home with supplemental oxygen for ambulation. This may be able to be weaned after he recovers from his acute illness. The patient has been placed on Xopenex nebulizers as needed for shortness of breath and he has been instructed that if he is requiring to use his albuterol inhaler and nebulizer more than every 4 to 6 hours that he needs to see his primary care provider and then be seen for a followup. The patient has been instructed to return to the emergency room for shortness of breath increased above his baseline or chest discomfort. POINTS OF DISCUSSION: Please continue to encourage the patient to stop smoking. He stopped approximately 6 weeks ago. Additionally, please assist the patient being set up with a pulmonology consult as I suspect he would benefit from seeing Dr. Samano. This is a summarized report of a complex medical history and hospital stay. For further details, please see the entire medical record. TIME SPENT: Time for this discharge was approximately 50 minutes, greater than half of that was spent with the patient and his discussing discharge plans and instructions. CONDITION ON DISCHARGE: Stable. DAVE BUSTILLO NP [id number]/[facility] #: [id number] ITZ
== END 2017-04-12 12:00 | disposition home or self-care (01) | DRG 871 ==
LOC: ED 19:33 → MEDTELE 22:05
PROVIDERS: ADMIT Internal Medicine; ATTEND Internal Medicine
DX: A41.89 Other specified sepsis (principal); J10.00 Influenza due to other identified influenza virus with unspecified type of pneumonia; J44.1 Chronic obstructive pulmonary disease with (acute) exacerbation; B37.0 Candidal stomatitis; R65.20 Severe sepsis without septic shock; Z66 Do not resuscitate; Z87.891 Personal history of nicotine dependence; Z79.52 Long term (current) use of systemic steroids; Z79.899 Other long term (current) drug therapy; Z80.9 Family history of malignant neoplasm, unspecified
CPT/HCPCS: 36415; 71045; 80048; 80053; 81003; 81015; 83605; 83690; 83735; 83880; 84145; 84484; 85025; 85610; 85730; 86140; 87040; 87502; 93005; 94640; 94760; 99285; A9270-GY; J0456; J0696; J1644; J2930; J7512; J7614

== ENCOUNTER 2017-12-06 19:38 | Inpatient (IN) | payer MEDICARE ==
[2017-12-06] MEDS ORDERED: methylPREDNISolone 125 MG* 2 ML VIAL IV ONE (19:51)
[2017-12-06] MEDS ORDERED: Albuterol/Ipratropium NEB.SOL* Albuterol 2.5 MG/Ipratropium 0.5 MG 3 ML INH ONE (19:51)
--- NOTE | 2017-12-06 19:53 | ED ---
Shortness of Breath - HPI Summary HPI Summary: This patient is an 82 year old M presenting to [facility] accompanied by with a chief complaint of SOB that began prior to arrival. The patient rates the pain 0 /10 in severity. Symptoms aggravated by exertion. Symptoms alleviated by nothing. Patient denies cough, fever, CP, and lower extremity edema. Patient is on 2.5L O2 at home, and reports he quit smoking last week. Patient denies previous intubation for previous shortness of breath. - History of Current Complaint Chief Complaint: EDShortnessOfBreath Time Seen by Provider: 12/06/17 19:50 Hx Obtained From: Patient Onset/Duration: Sudden Onset, Lasting Hours, Still Present Timing: Constant Current Severity: Mild Dyspnea At: Rest Aggrevating Factors: Other - Exertion Alleviating Factors: Nothing - Allergy/Home Medications Allergies/Adverse Reactions: Allergies Allergy/AdvReac Type Severity Reaction Status Date / Time No Known Allergies Allergy Verified 09/08/15 06:44 PMH/Surg Hx/FS Hx/Imm Hx Previously Healthy: No Endocrine/Hematology History: Denies: Hx Anticoagulant Therapy, Hx Blood Disorders, Hx Blood Transfusions, Hx Bone Marrow Disease, Hx Systemic Lupus Erythematosus, Hx Sickle Cell Disease , Hx Thyroid Disease, Hx Anemia, Hx Unexplained Bleeding Cardiovascular History: Denies: Hx Aneurysm, Hx Angina, Hx Angioplasty, Hx Auto Implanted Cardiovert Defib, Hx Cardiac Arrest, Hx Congenital Heart Disease, Hx Congestive Heart Failure, Hx Coronary Artery Disease, Hx Deep Vein Thrombosis, Hx Embolism, Hx Hypotension, Hx Hypertension, Hx Pacemaker/ICD, Hx Rheumatic Fever, Hx Syncope, Hx Valvular Heart Disease Respiratory History: Reports: Hx Chronic Obstructive Pulmonary Disease (COPD), Other Respiratory Problems/Disorders - COPD-WELL CONTROLLED WITH DAILY MEDS Denies: Hx Asthma, Hx Lung Cancer, Hx Pneumonia, Hx Pulmonary Embolism, Hx Seasonal Allergies GI History: Denies: Hx Crohn's Disease, Hx Diverticulosis, Hx Gastroesophageal Reflux Disease, Hx Irritable Bowel, Hx Obstructive Bowel, Hx Ulcer History: Denies: Hx Benign Prostatic Hyperplasia, Hx Dialysis, Hx Kidney Stones Musculoskeletal History: Denies: Hx Arthritis, Hx Bursitis, Hx Congenital Bone Abnormalities, Hx Fibromyalgia, Hx Gout, Hx Osteoporosis, Hx Scoliosis, Hx Tendonitis Sensory History: Reports: Hx Contacts or Glasses - GLASSES Denies: Hx Cataracts, Hx Eye Injury, Hx Eye Prosthesis, Hx Glaucoma, Hx Macular Degeneration, Hx Hearing Aid, Hx Hearing Problem, Other Sensory Impairments Opthamlomology History: Reports: Hx Contacts or Glasses - GLASSES Denies: Hx Cataracts, Hx Eye Injury, Hx Eye Prosthesis, Hx Glaucoma, Hx Macular Degeneration, Other Sensory Impairments Neurological History: Denies: Hx Dementia, Hx Developmental Delay, Hx Headaches, Hx Migraine, Hx Nerve Disease, Hx Seizures, Hx Spinal Cord Injury, Hx Transient Ischemic Attacks (TIA), Other Neuro Impairments/Disorders Psychiatric History: Denies: Hx Anxiety, Hx Attention Deficit Hyperactivity Disorder, Hx Autism, Hx Eating Disorder, Hx Oppositional [place] Disorder, Hx Depression, Hx Panic Disorder, Hx Post Traumatic Stress Disorder, Hx Inpatient Treatment, Hx Schizophrenia, Hx Bipolar Disorder, Hx Suicide Attempt, Hx of Violent Episodes Against Others - Cancer History Hx Chemotherapy: No Hx Radiation Therapy: No Hx Palliative Cancer Treatment: No - Surgical History Hx Anesthesia Reactions: No Infectious Disease History: No Infectious Disease History: Denies: Hx Clostridium Difficile, Hx Hepatitis, Hx of Known/Suspected MRSA, Hx Shingles, Hx Tuberculosis, Hx Known/Suspected VRE, Hx Known/Suspected VRSA, Traveled Outside the [place] in Last 30 Days - Family History Known Family History: Negative: Hypertension, Diabetes - Social History Occupation: Retired Lives: With Family Alcohol Use: Occasionally Alcohol Amount: 1-2 A DAY Hx Substance Use: No Substance Use Type: Reports: None Hx Tobacco Use: Yes Smoking Status (MU): Former Smoker Amount Used/How Often: 10 CIGS DAILY X 63 YRS. Have You Smoked in the Last Year: Yes Review of Systems Negative: Fever Negative: Chest Pain Positive: Shortness Of Breath. Negative: Cough Negative: Edema All Other Systems Reviewed And Are Negative: Yes Physical Exam - Summary Physical Exam Summary: Appearance: Well appearing, no pain distress Skin: warm, dry, reflects adequate perfusion Head/face: normal Eyes: EOMI, KIERA ENT: normal Neck: supple, non-tender Respiratory: bilateral wheeze, breath sounds present Cardiovascular: tachycardia, pulses symmetrical Abdomen: non-tender, soft Bowel: present Musculoskeletal: normal, strength/ROM intact Neuro: normal, sensory motor intact, A&Ox3 Triage Information Reviewed: Yes Vital Signs On Initial Exam: Initial Vitals Temp Pulse Resp BP Pulse Ox 95.5 F 145 32 154/90 88 12/06/17 19:42 12/06/17 19:42 12/06/17 19:42 12/06/17 19:42 12/06/17 19:42 Vital Signs Reviewed: Yes Diagnostics - Vital Signs Vital Signs Temp Pulse Resp BP Pulse Ox 12/06/17 19:42 95.5 F 145 32 154/90 88 - Laboratory Result Diagrams: 12/06/17 20:04 12/06/17 20:04 Lab Statement: Any lab studies that have been ordered have been reviewed, and results considered in the medical decision making process. - Radiology CXR Radiology Interpretation Completed By: ED Physician Summary of Radiographic Findings: CXR reveals, per ED physician, left lower lobe infiltrate. - EKG 2021 Cardiac Rate: Tachycardia EKG Rhythm: Sinus Rhythm - [address] Segment: Normal Ectopy: None Summary of EKG Findings: An EKG taken at 2021 reveals sinus tachycardia at 124 BPM with no acute changes. Re-Evaluation - Re-Evaluation First Eval Re-Evaluation Time: 20:55 Change: Improved Comment: Patient states he is less short of breath. Discussed results and plan of care with patient and family. Course/Dx - Course Course Of Treatment: This patient is an 82 year old M presenting to [facility] accompanied by with a chief complaint of SOB that began prior to arrival. The patient rates the pain 0/10 in severity. Patient denies previous intubation for previous shortness of breath. Physical Exam Findings: Bilateral wheeze, tachycardia. An EKG taken at 2021 reveals sinus tachycardia at 124 BPM with no acute changes. CXR reveals, per ED physician, left lower lobe infiltrate. Bloodwork UA obtained. In the ED course the patient was given Duoneb, aspirin, azithromycin, Rocephin, and Solu-MEDROl. Consult with Dr. Garg (hospitalist) at 2120. She agrees to admit patient for further evaluation. The patient is agreeable with this plan. - Diagnoses Differential Diagnosis/HQI/PQRI: Positive: Asthma, Bronchitis, CHF, COPD Exacerbation, Pneumonia Provider Diagnoses: COPD exacerbation, Elevated troponin, Pneumonia - Physician Notifications Discussed Care of Patient With: Honey Garg Time Discussed With Above Provider: 21:21 Instructed by Provider To: Other - Consult with Dr. Garg (hospitalist) at 2120. She agrees to admit patient for further evaluation. - Critical Care Time Critical Care Time: 30-74 min Discharge - Sign-Out/Discharge Documenting (check all that apply): Patient [place]arture [place] [facility] [place] Plan Condition: Stable Disposition: ADMITTED TO [facility] Referrals: Alondra Duncan MD [Primary Care Provider] - - Billing Disposition and Condition Condition: STABLE Disposition: Admitted to [facility] - Attestation Statements Document Initiated by Scribe: Yes Documenting Scribe: Lourdes Etienne Provider For Whom Scribe is Documenting (Include Credential): Daniel Cruz MD Scribe Attestation: Lourdes Donahue, scribed for Daniel Cruz MD on 12/06/17 at 2208. Scribe Documentation Reviewed: Yes Provider Attestation: The documentation as recorded by the loreleiibLourdes poole accurately reflects the service I personally performed and the decisions made by , Daniel Cruz MD
[2017-12-06 20:12] LABS: Hematocrit 43 % (42-52); Hemoglobin 14.6 g/dl (14.0-18.0); Mean Corpuscular HGB Conc 34 g/dl (31-36); Mean Corpuscular Hemoglobin 33 pg (27-31); Mean Corpuscular Volume 98 fL (80-94); Platelet Count 319 10^3/ul (150-450); Red Blood Count 4.43 10^6/ul (4.00-5.40); Red Cell Distribution Width 14 % (10.5-15); White Blood Count 18.6 10^3/ul (3.5-10.8)
[2017-12-06 20:22] LABS: INR 0.9 (0.77-1.02)
[2017-12-06 20:55] LABS: ABS Basophils 0.1 10^3/ul (0-0.2); ABS Eosinophils 0.1 10^3/ul (0-0.6); ABS Lymphocytes 1.4 10^3/ul (1.0-4.8); ABS Monocytes 0.8 10^3/ul (0-0.8); ABS Neutrophils 16.1 10^3/ul (1.5-7.7); ABS Nucleated RBC 0 10^3/ul; Eosinophil % 0.7 % (0-6); Lymphocyte % 7.5 % (25-47); Nucleated Red Blood Cells % 0
[2017-12-06] MEDS ORDERED: Aspirin 81 mg CHEW TAB* 81 MG TAB.CHEW PO ONE (21:20)
[2017-12-06] MEDS ORDERED: cefTRIAXone(*) 1 GM in NS 0.9% 50 ML* 50 ML IVPB ONE (21:21)
[2017-12-06] MEDS ORDERED: Azithromycin IV(*) 500 MG in NS 0.9% 250 ML* 250 ML IVPB ONE (21:22)
[2017-12-06] MEDS ORDERED: Albuterol 2.5 MG/3 ML NEB.SOL* (0.083%) INH PRN (22:25)
[2017-12-06] MEDS ORDERED: Ondansetron INJ* 2 MG/ML VIAL IV PRN (22:25)
[2017-12-06] MEDS ORDERED: NS 0.9% 1000 ML* 2,000 ML IV ONE (22:25)
[2017-12-06] MEDS ORDERED: Acetaminophen TAB* 325 MG PO PRN (22:25)
[2017-12-06] MEDS ORDERED: cefTRIAXone(*) 1 GM in NS 0.9% 50 ML* 50 ML IVPB SCH (22:29)
[2017-12-06] MEDS ORDERED: NS 0.9% 1000 ML* 1,000 ML IV SCH (22:30)
[2017-12-06] MEDS ORDERED: Enoxaparin(*) 60 MG/0.6 ML SYR SUBCUT ONE (22:36)
[2017-12-06] MEDS ORDERED: Azithromycin IV(*) 500 MG in NS 0.9% 250 ML* 250 ML IVPB SCH (23:00)
[2017-12-06] MEDS ORDERED: Albuterol/Ipratropium NEB.SOL* Albuterol 2.5 MG/Ipratropium 0.5 MG 3 ML INH SCH (23:00)
--- NOTE | 2017-12-07 03:02 | HP ---
CC: Dr. Alondra Redd * HISTORY AND PHYSICAL: DATE OF ADMISSION: 12/06/17 PRIMARY CARE PROVIDER: Dr. Alondra Redd. ATTENDING PHYSICIAN WHILE IN THE HOSPITAL: Dr. Honey Garg * (report dictated by Gaudencio Stewart NP). CHIEF COMPLAINT: 1. Cough. 2. Shortness of breath. HISTORY OF PRESENT ILLNESS: Mr. Hawkins is an 82-year-old male patient who really only carries a history of COPD. He is on O2 particularly at night. He is presenting today due to having complaints of shortness of breath, not feeling well. He has had about a week's worth of having URI symptoms, feeling congested, stuffed up, rhinorrhea. He has not had a cough. He has been noticing that the last few days, he has been having to increase his O2 meaning he has been wearing it throughout the entire day because he has been more and more short of breath. He saw his primary today. He became profoundly short of breath later this evening and the family is concerned and brought him into the ER. He saw the primary. He was started on steroids. 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 Unfortunately, he became more short of breath. Family was concerned. They brought him to the hospital. He denied having any chest pain. Denied having any nausea or vomiting. No abdominal pain. No fevers or chills. He denied having any chest pain or any orthopnea. No weight gain, but he was concerned because his breathing just was not getting any better. He came into the ED. There was concern for possible COPD exacerbation and we were asked to evaluate for admission. PAST MEDICAL HISTORY: Significant for COPD. PAST SURGICAL HISTORY: Denied. HOME MEDICATIONS: I am trying to obtain an accurate list. The patient does not know what he is taking. His left old records noted that he was on: 1. Spiriva 1 puff inhaled b.i.d. 2. Nystatin suspension 5000 units p.o. 4 times a day. 3. Xopenex 0.063 mg inhaled every 6 hours as needed. 4. Pulmicort 1 neb inhaled b.i.d. 5. Albuterol HFA 2 puffs inhaled every 4 hours as needed. ALLERGIES TO MEDICATIONS: Include no known drug allergies. FAMILY HISTORY: Mother of old age. Father had a history of cancer. He said he had 8 siblings and all of them, but him had cancer. SOCIAL HISTORY: He is a smoker, smoked about half a pack a day for about 70 years, has not smoked for 5 days. He does not drink alcohol. Surrogate decision maker is his . REVIEW OF SYSTEMS: There is no documented fever. He denied having any significant weight change. There is no double vision. He denies having any ear discharge. There is no rhinorrhea. He denied having any sore throat. There was no thyroid enlargement. He denied having any chest pain. He does admit to having some shortness of breath. He denies any abdominal pain. There was no nausea, no vomiting. There was no dysuria. There was no frequency. There was no seizure, no loss of consciousness, no pruritus and no skin ulcerations. Review of 14 systems completed, all others negative. PHYSICAL EXAMINATION GENERAL: Mr. Hawkins is an 82-year-old male patient, who appears to be in mild amount of respiratory distress, but he is taking making his needs well known. He does not appear to be in respiratory distress. He appears to be well nourished and well developed. VITAL SIGNS: Blood pressure initially when he came in was 154/90 with a pulse of 145, respirations were 32. His O2 sat was 80%, temperature was 95.5. Blood pressure now is noted to be 98/60, heart rate is 108, respirations are noted to be right around 30. HEENT: Head atraumatic, normocephalic. Eyes: EOMs are intact. Sclerae anicteric and not pale. Throat: Oral mucosa appears to be dry. No oropharyngeal erythema. NECK: Supple. LUNGS: Diminished in the bases but really there were no wheezing, rales, or rhonchi noted. HEART: Sounds S1, S2. He is tachycardic. ABDOMEN: Soft. It was flat. It was nontender. Bowel sounds were present. EXTREMITIES: Pulses were 2+ throughout. He had no peripheral edema. He is moving all 4 extremities with 5/5 strength. NEUROLOGIC: He is awake, he is alert, he is oriented x3. His tongue is midline. His natural resource officer were equal. He had no gross focal deficits. SKIN: Grossly intact. DIAGNOSTIC STUDIES/LAB DATA: Labs today revealing a WBC of 18.6, RBC of 4.43, hemoglobin of 14.6, hematocrit of 43, platelet count of 319. INR of 0.90. PTT of 25.8. His pH was 7.35, pCO2 was 44. His bicarb was 23. Sodium was 141, potassium was 4.3, chloride of 102. His bicarb 27, BUN 21, creatinine 1.15, glucose of 207, lactate 2.3, calcium 9.4, total bili 0.4, AST 19, ALT 17, alk phos 87. Troponin was 0.13. BNP of 153, albumin 4.3. Serology was negative for flu. He did have a chest x-ray obtained today. Under my review, to me it looks like he may be developing a new infiltrate in the left lower base compared to his previous chest x- ray. Official report pending. He had an EGD obtained today as well. It does appear to be sinus tachycardia, rate of [address] elevations and T-wave inversions. To review to the previous EKG, the rate is much faster now at 124, but otherwise appears to be similar. Old medical records were reviewed. ASSESSMENT AND PLAN: Mr. Hawkins is an 82-year-old male patient coming into the ED today with complaints of shortness of breath. We were asked to evaluate for admission. He will be admitted under inpatient status for: 1. Chronic obstructive pulmonary disease exacerbation. I suspect the cause of the shortness of breath is probably chronic obstructive pulmonary disease. I am putting him on Vapotherm. I am putting him on antibiotics given the white count I am giving him the 30 cc/kg bolus. He will be pancultured. We will get Legionella, sputum cultures, strep pneumoniae, urine antigen. We will continue with steroids, aggressive pulmonary nebulizers, and inhaled steroids as well. I will put him in the ICU on Vapotherm. 2. Elevated troponin. Again, this is concerning. It could just be demand ischemia. He was hypoxic when he came in. However, in the differential, pulmonary embolism should be ruled out. Unfortunately, he is allergic to CT DYE , did cause hives. I am going to give him a dose of Lovenox tonight and get a V /Q scan in the morning and we will see if we need to continue this. I am going to put him on baby aspirin. Because of the elevated troponin, I will trend these. If they continue to elevate, certainly we will Cardiology involved and I am checking an echo and we will continue to monitor. I will repeat his EKG in the morning. 3. DVT prophylaxis. He is getting Lovenox tonight. That will cover him until tomorrow. Decision needs to be made to continue this or go back down to subtherapeutic dosing, but he will be covered until 11 tomorrow. 4. Fluids, electrolytes, nutrition. He can have a regular diet. 5. Code status. He wishes to be a DNR/DNI. TIME SPENT: Time spent on the admission was approximately 60 minutes, greater than half the time was spent [id number] with the patient obtaining my history and physical and other half the time was spent going over plan of care with the patient and implementing plan of care. I did discuss the plan of care with my attending, Dr. Garg; she is in agreement. GAUDENCIO STEWART, JESUS [id number]/[facility] #: [id number] ITZ
[2017-12-07 05:48] LABS: ABS Basophils 0 10^3/ul (0-0.2); ABS Eosinophils 0 10^3/ul (0-0.6); ABS Lymphocytes 0.4 10^3/ul (1.0-4.8); ABS Monocytes 0.1 10^3/ul (0-0.8); ABS Neutrophils 9.7 10^3/ul (1.5-7.7); ABS Nucleated RBC 0 10^3/ul; Eosinophil % 0.1 % (0-6); Hematocrit 33 % (42-52); Hemoglobin 11.1 g/dl (14.0-18.0); Lymphocyte % 4.2 % (25-47); Mean Corpuscular HGB Conc 34 g/dl (31-36); Mean Corpuscular Hemoglobin 33 pg (27-31); Mean Corpuscular Volume 97 fL (80-94); Mean Platelet Volume 7.8 um3 (7.4-10.4); Nucleated Red Blood Cells % 0; Platelet Count 224 10^3/ul (150-450); Red Blood Count 3.39 10^6/ul (4.00-5.40); Red Cell Distribution Width 14 % (10.5-15); White Blood Count 10.3 10^3/ul (3.5-10.8)
[2017-12-07 05:54] LABS: INR 1.07 (0.77-1.02)
[2017-12-07 06:04] LABS: EGFR Non-African American 87.7 (>60)
--- NOTE | 2017-12-07 08:05 | RAD ---
INDICATION: Shortness of breath and a patient with known COPD COMPARISON: Chest x-ray April 08, 2017 TECHNIQUE: Single AP portable view of the chest was obtained. FINDINGS: Image quality is compromised due to the relative inferiority of a portable chest x-ray. The heart and mediastinum exhibit normal size and contour. Similar to the prior chest x-ray the lungs appear hyperaerated in the AP view. There is a small degree of bibasilar costophrenic angle blunting also similar to the previous chest x-ray. Visualized bones are normal for the patient's age. IMPRESSION: Stable appearance of COPD similar to the April 08, 2017 chest x-ray. R1NF
[2017-12-07] MEDS: Albuterol/Ipratropium NEB.SOL* Albuterol 2.5 MG/Ipratropium 0.5 MG 3 ML INH SCH ×5 (08:46→23:08)
[2017-12-07] MEDS: Mometasone/Formoter 200/5 MDI INH SCH ×2 (08:47→19:05)
[2017-12-07] MEDS ORDERED: predniSONE TAB* 20 MG PO SCH (09:00)
[2017-12-07] MEDS: Aspirin EC TAB* 81 MG TAB.EC PO SCH (09:16)
[2017-12-07] MEDS ORDERED: methylPREDNISolone SOD 40 MG* 1 ML VIAL IV ONE ×2 (10:01→16:14)
--- NOTE | 2017-12-07 11:25 | CONSULT ---
Consult Consult: Consultation Note -- Critical Care Requesting Physician: Dr Waldrop Reason for consult: hypoxia Limitations in history/physical: none Date of consult: 12/07/2017 HPI: 82y M w/pmhx Severe COPD on nocturnal O2 2L; comes to ER 12/06 for complaints of progressive dyspnea on exertion, and then on rest for the past 1 week. Patient states he uses 2L at night but increasing dyspnea requiring O2 in the daytime continuously. He notes no fever/chills/n/v/diarrhea. No cold/ congestion/rhinorrhea. No cough/sputum production. No sick contacts. Used albuterol more also, no sig change. No LE swelling/cramps. No change in urine output. No dizziness/syncope. No chest pain. In ER, he was tachypneic, tachycardic, placed on NRM then vapotherm. CXR without clear infiltrate but he did have an elevated WBC, no fever. Started on empiric Abx coverage, started on therapy for COPD exacerbation suspected. He is awake/alert, no distress, on 15L oximask, RR 20-30s, no acc muscle use, sats 99%. Given enoxaparin SQ 55mg for possible PE empiric tx. at bedside giving history. ED/floor Course: as above ROS: negative except for pertinent positives mentioned above. PMHx: Severe COPD on nocturnal O2 2L PSHx: None Family History: Cancer in father and all siblings. Social History: Alcohol-none, Smoking-70yr ppd, recently stopped due to SOB, Drug use-none; lives with him and surrogate decision maker. Allergies: Allergies Allergy/AdvReac Type Severity Reaction Status Date / Time Iodinated Contrast- Oral and Allergy Hives Verified 12/07/17 00:26 IV Dye Home Medications: Albuterol HFA INHALER* 2 puff INH Q4H PRN 08/25/15 [History Confirmed 12/06/17] Budesonide NEB* [Pulmicort Neb*] 1 vial INH BID 08/25/15 [History Confirmed ] Levalbuterol 0.63MG/3ML NEB* [Xopenex 0.63MG/3ML NEB*] 0.63 mg INH Q6H PRN #24 neb.soln 04/12/17 [Rx Confirmed 12/06/17] Prednisone 20 MG TAB 60 mg PO DAILY 12/06/17 [History Confirmed 12/06/17] Tiotropium Brom/Olodaterol(NF) [Stiolto Respimat Inh Ber[place] (60 puff)(NF)] 2 puff INH DAILY 12/06/17 [History Confirmed 12/06/17] predniSONE [Prednisone 5 MG TAB] 5 mg PO DAILY 12/06/17 [History Confirmed 12/06] Tele: sinus tachycardia Vitals: Vital Signs Temp 99.2 F 12/07/17 08:00 Pulse 101 12/07/17 06:01 Resp 25 12/07/17 06:10 BP 103/77 12/07/17 06:00 Pulse Ox 97 12/07/17 06:01 Intake & Output 12/06/17 12/07/17 12/07/17 18:59 06:59 18:59 Intake Total 818 360 Output Total 150 Balance 668 360 Weight 56.1 kg Intake: IV Fluids 250 IVPB 448 NS 448 Oral 120 360 Output: Urine 150 O2/Vent: 15L oximask Infusions: heplock Current Medications: Acetaminophen (Tylenol Tab*) 650 mg PO Q4H PRN PRN Reason: FEVER/PAIN Albuterol (Ventolin 2.5 Mg/3 Ml Neb.Nancy*) 2.5 mg INH Q2H PRN PRN Reason: SOB/WHEEZING Albuterol/Ipratropium (Duoneb (Albuterol 2.5 Mg/Ipratropium 0.5 Mg)) 1 neb INH [id number] AWAKE [facility] Last Admin: 12/07/17 08:46 Dose: 1 neb Aspirin (Aspirin Ec Tab*) 81 mg PO DAILY [facility] Last Admin: 12/07/17 09:16 Dose: 81 mg Enoxaparin Sodium (Lovenox(*)) 60 mg SUBCUT Q12H [facility] Azithromycin 500 mg/ Sodium (Chloride) 250 mls @ 250 mls/hr IVPB 2200 [facility] Ceftriaxone Sodium 1 gm/ (Sodium Chloride) 50 mls @ 200 mls/hr IVPB 2130 [facility] Methylprednisolone Sodium Succinate (Solu-Medrol 40 Mg) 40 mg IV Q12H [facility] Mometasone Furoate/Formoterol Fumar (Dulera 200/5 Mdi*) 2 puff INH BID [facility] Last Admin: 11/01/18 08:47 Dose: 2 puff Ondansetron HCl (Zofran Inj*) 4 mg IV Q6H PRN PRN Reason: NAUSEA Physical Exam: General: awake, alert, no distress, no diaphoresis Head: normocephalic, atraumatic HEENT: no pallor, no icterus, moist mucous membranes Neck: soft, supple, no jvd, no stridor CVS: tachy, regular, no murmur Resp: bilateral air entry, no rhales, no wheeze, no rhonchi, no acc muscle use Abdomen: soft, nontender, nondistended, bowel sounds present Ext: pulses+, warm, no edema/tenderness Neuro: awake, alert, orientedx3, moving all extremities, no gross focal deficit Labs: Laboratory Results - last 24 hr 12/06/17 12/06/17 12/06/17 20:04 20:04 20:04 WBC 18.6 H RBC 4.43 Hgb 14.6 Hct 43 MCV 98 H MCH 33 H MCHC 34 RDW 14 Plt Count 319 MPV 8.0 Neut % (Auto) 86.7 H Lymph % (Auto) 7.5 L [place] % (Auto) 4.5 Eos % (Auto) 0.7 Baso % (Auto) 0.6 Absolute Neuts (auto) 16.1 H Absolute Lymphs (auto) 1.4 Absolute Monos (auto) 0.8 Absolute Eos (auto) 0.1 Absolute Basos (auto) 0.1 Absolute Nucleated RBC 0 Nucleated RBC % 0 INR (Anticoag Therapy) 0.90 APTT 25.8 L Patient Temperature ABG pH ABG pH (Temp Correct) ABG pCO2 ABG pCO2 (Temp Corrct ABG pO2 ABG pO2 (Temp Correct ABG HCO3 ABG O2 Saturation ABG Base Excess Respiration Rate O2 Delivery Device Ventilator Type Vent Mode FiO2 Inspiratory Time PEEP Pressure Support Pressure Control EPAP IPAP BiPAP Sodium 141 Potassium 4.3 Chloride 102 Carbon Dioxide 27 Anion Gap 12 H BUN 21 Creatinine 1.15 Est GFR ( Amer) 73.9 Est GFR (Non-Af Amer) 61.0 BUN/Creatinine Ratio 18.3 Glucose 207 H Lactic Acid Calcium 9.4 Total Bilirubin 0.40 AST 19 ALT 17 Alkaline Phosphatase 87 Troponin I 0.13 H* B-Natriuretic Peptide Total Protein 7.0 Albumin 4.0 Globulin 3.0 Albumin/Globulin Ratio 1.3 Influenza A (Rapid) Influenza B (Rapid) 12/06/17 12/06/17 12/06/17 20:04 20:04 20:11 WBC RBC Hgb Hct MCV MCH MCHC RDW Plt Count MPV Neut % (Auto) Lymph % (Auto) [place] % (Auto) Eos % (Auto) Baso % (Auto) Absolute Neuts (auto) Absolute Lymphs (auto) Absolute Monos (auto) Absolute Eos (auto) Absolute Basos (auto) Absolute Nucleated RBC Nucleated RBC % INR (Anticoag Therapy) APTT Patient Temperature Not Reportable ABG pH 7.35 ABG pH (Temp Correct) Not Reportable ABG pCO2 44 ABG pCO2 (Temp Corrct Not Reportable ABG pO2 96 ABG pO2 (Temp Correct Not Reportable ABG HCO3 23.7 ABG O2 Saturation 98.7 H ABG Base Excess -1.5 Respiration Rate Not Reportable O2 Delivery Device N/c Ventilator Type Not Reportable Vent Mode Not Reportable FiO2 24 Inspiratory Time Not Reportable PEEP Not Reportable Pressure Support Not Reportable Pressure Control Not Reportable EPAP Not Reportable IPAP Not Reportable BiPAP Not Reportable Sodium Potassium Chloride Carbon Dioxide Anion Gap BUN Creatinine Est GFR ( Amer) Est GFR (Non-Af Amer) BUN/Creatinine Ratio Glucose Lactic Acid 2.3 H* Calcium Total Bilirubin AST ALT Alkaline Phosphatase Troponin I B-Natriuretic Peptide 153 H Total Protein Albumin Globulin Albumin/Globulin Ratio Influenza A (Rapid) Influenza B (Rapid) 12/06/17 12/06/17 12/07/17 21:10 22:48 02:15 WBC RBC Hgb Hct MCV MCH MCHC RDW Plt Count MPV Neut % (Auto) Lymph % (Auto) [place] % (Auto) Eos % (Auto) Baso % (Auto) Absolute Neuts (auto) Absolute Lymphs (auto) Absolute Monos (auto) Absolute Eos (auto) Absolute Basos (auto) Absolute Nucleated RBC Nucleated RBC % INR (Anticoag Therapy) APTT Patient Temperature ABG pH ABG pH (Temp Correct) ABG pCO2 ABG pCO2 (Temp Corrct ABG pO2 ABG pO2 (Temp Correct ABG HCO3 ABG O2 Saturation ABG Base Excess Respiration Rate O2 Delivery Device Ventilator Type Vent Mode FiO2 Inspiratory Time PEEP Pressure Support Pressure Control EPAP IPAP BiPAP Sodium Potassium Chloride Carbon Dioxide Anion Gap BUN Creatinine Est GFR ( Amer) Est GFR (Non-Af Amer) BUN/Creatinine Ratio Glucose Lactic Acid Calcium Total Bilirubin AST ALT Alkaline Phosphatase Troponin I 0.58 H* 0.61 H* B-Natriuretic Peptide Total Protein Albumin Globulin Albumin/Globulin Ratio Influenza A (Rapid) Negative Influenza B (Rapid) Negative 12/07/17 12/07/17 12/07/17 02:15 05:35 05:35 WBC 10.3 RBC 3.39 L Hgb 11.1 L Hct 33 L MCV 97 H MCH 33 H MCHC 34 RDW 14 Plt Count 224 MPV 7.8 Neut % (Auto) 94.2 H Lymph % (Auto) 4.2 L [place] % (Auto) 1.2 Eos % (Auto) 0.1 Baso % (Auto) 0.3 Absolute Neuts (auto) 9.7 H Absolute Lymphs (auto) 0.4 L Absolute Monos (auto) 0.1 Absolute Eos (auto) 0 Absolute Basos (auto) 0 Absolute Nucleated RBC 0 Nucleated RBC % 0 INR (Anticoag Therapy) 1.07 H APTT Patient Temperature ABG pH ABG pH (Temp Correct) ABG pCO2 ABG pCO2 (Temp Corrct ABG pO2 ABG pO2 (Temp Correct ABG HCO3 ABG O2 Saturation ABG Base Excess Respiration Rate O2 Delivery Device Ventilator Type Vent Mode FiO2 Inspiratory Time PEEP Pressure Support Pressure Control EPAP IPAP BiPAP Sodium Potassium Chloride Carbon Dioxide Anion Gap BUN Creatinine Est GFR ( Amer) Est GFR (Non-Af Amer) BUN/Creatinine Ratio Glucose Lactic Acid 1.6 Calcium Total Bilirubin AST ALT Alkaline Phosphatase Troponin I B-Natriuretic Peptide Total Protein Albumin Globulin Albumin/Globulin Ratio Influenza A (Rapid) Influenza B (Rapid) 12/07/17 05:35 WBC RBC Hgb Hct MCV MCH MCHC RDW Plt Count MPV Neut % (Auto) Lymph % (Auto) [place] % (Auto) Eos % (Auto) Baso % (Auto) Absolute Neuts (auto) Absolute Lymphs (auto) Absolute Monos (auto) Absolute Eos (auto) Absolute Basos (auto) Absolute Nucleated RBC Nucleated RBC % INR (Anticoag Therapy) APTT Patient Temperature ABG pH ABG pH (Temp Correct) ABG pCO2 ABG pCO2 (Temp Corrct ABG pO2 ABG pO2 (Temp Correct ABG HCO3 ABG O2 Saturation ABG Base Excess Respiration Rate O2 Delivery Device Ventilator Type Vent Mode FiO2 Inspiratory Time PEEP Pressure Support Pressure Control EPAP IPAP BiPAP Sodium 142 Potassium 3.8 Chloride 114 H Carbon Dioxide 19 L Anion Gap 9 BUN 20 Creatinine 0.84 Est GFR ( Amer) 106.1 Est GFR (Non-Af Amer) 87.7 BUN/Creatinine Ratio 23.8 H Glucose 151 H Lactic Acid Calcium 6.8 L Total Bilirubin AST ALT Alkaline Phosphatase Troponin I 0.87 H* B-Natriuretic Peptide Total Protein Albumin Globulin Albumin/Globulin Ratio Influenza A (Rapid) Influenza B (Rapid) Imaging: cxr 12/06 - hyperinflated lungs, no gross infiltrate/effusion/ptx Assessment: 82y M w/pmhx Severe COPD on nocturnal O2 2L; comes to ER 12/06 for complaints of progressive dyspnea on exertion, and then on rest for the past 1 week. Patient states he uses 2L at night but increasing dyspnea requiring O2 in the daytime continuously. In ER, he was tachypneic, tachycardic, placed on NRM then vapotherm. CXR without clear infiltrate but he did have an elevated WBC. Started on empiric Abx coverage, started on therapy for COPD exacerbation suspected. -Acute on chronic hypoxic respiratory failure -Possible COPD exacerbation -r/o sepsis -NSTEMI Plan: Neuro- awake/alert. delirium prec. CVS- tachycardic, sinus rhythm otherwise. BP stable, 90s now. no gross evidence of overload noted. no chest pain. EKG 12/06 and 12/07 with old noted change of anterior Qwaves and poor R progression, no acute ST/T changes otherwise. Elevated troponin, unclear if this is demand ischemia? also a concern for possible PE given progressive dyspnea, with no new CXR findings or wheezing. TTE done, pending read. cont empiric enoxaparin 1mg/kg bid. noted BNP elevated. will treat NSTEMI and for PE. Check LE venous duplex. Resp- on progressively increasing oxygen requirements. no acc muscle use/ wheezing/rhonchi. CXR clear. cont oximask or vap. TTE pending. cont solumedrol 40mg IV bid for now, albuterol PRN. IV abx empiric okay for now. ID- afebrile. wbc 18. CXR clear of gross infiltrate. Nontoxic appearing. No viral prodrome noted either. Suspicion is low for infectious process. Reactive? r/o PE. r/o NSTEMI. Cont Azithro/ceftriaxone (day#2) empirically. GI- NPO. Pepcid proph. Renal- Cr okay. noted some metabolic acidosis, nongap. LA was elevated but not decreased. no mayo. appear euvolemic. Heme- hg stable. plt okay. on enoxaparin 1mg/kg SQ bid empiric tx for nstemi/pe. Endo- fingerstick q6h. Musculsk- pressure ulcer prophylaxis. Bedrest. Wounds- none Nutrition- NPO DVT prophylaxis: lovenox GI prophylaxis: pepcid Central Line: no Arterial Line: no Mayo Cathetor: no Disposition: ICU Code Status: full code; discussed with family, they are deciding on DNR/DNI, bedside discussion had. Total Critical Care time is 45 minutes, excluding procedures/teaching Jonah Yanez MD Vehicle Mechanic (Electronically Signed)
--- NOTE | 2017-12-07 11:55 | ECHO ---
Patient: ROSE BAHENA [facility] Rec#: [id number] : 1935 Date: 12/07/2017 Age: 82y Height: 170 cm / 66.9 in Weight: 54.9 kg / 121.0 lbs Sex: M BSA: 1.63 Room#: ICU 9 Admit Date#: 12/06/2017 Type: Inpatient Referring: Gaudencio Desai NP Reading: Deondre Dumont MD Rn Transplant: Suzanne Mathew RN RDCS CC: Alondra Duncan MD Transthoracic Echocardiogram Indication: Shortness of breath, elevated troponin levels BP: 103/77 HR: 97 Rhythm: NSR Findings History: COPD, smoker Technical Comments: The study quality is fair. The study is technically limited due to the patient's history of COPD. Left Ventricle: The left ventricular chamber size is normal. There is no left ventricular hypertrophy. There are multiple regional wall motion abnormalities. There is severely decreased left ventricular systolic function. The estimated ejection fraction is 20-25%. Abnormal left ventricular diastolic function is observed. The basal anteroseptal, basal anterior, basal inferior, mid anterior, mid anterolateral, mid inferolateral, and apical anterior wall segments are hypokinetic (score 2). The mid anteroseptal, mid inferior, mid inferoseptal, apical septal, apical lateral, and apical inferior wall segments are akinetic (score 3). Overall wallmotion score index is 2.19 Left Atrium: The left atrial chamber size is normal. Right Ventricle: The right ventricular cavity size is normal. The right ventricular global systolic function is mildly to moderately reduced. The apex of the right ventricle appears hypokinetic.The mid to distal RV free wall segments are hypokinetic and the proximal segments are preserverd. Right Atrium: The right atrium is not well visualized. The right atrial cavity size is normal. Aortic Valve: The aortic valve leaflets are mildly thickened. There is no evidence of aortic regurgitation. There is mild aortic stenosis. Mitral Valve: The mitral valve leaflets are mildly thickened. There is a trace of mitral regurgitation. There is no evidence of mitral stenosis. Tricuspid Valve: The tricuspid valve leaflets are normal. There is trace to mild tricuspid regurgitation. There is evidence of moderate pulmonary hypertension. There is no tricuspid stenosis. Pulmonic Valve: The pulmonic valve structure is not well visualized. There is no evidence of pulmonic regurgitation. There is no pulmonic stenosis. Pericardium: There is no significant pericardial effusion. Aorta: The ascending aorta is not well visualized. The aortic arch is not well visualized. There is no dilation of the aortic root. Pulmonary Artery: The main pulmonary artery is not well visualized. Venous: The inferior vena cava is dilated. There is no change in the dimension of the inferior vena cava with respiration consistent with markedly increased right atrial pressure. Summary: There was not any prior study for comparison. Conclusions There are multiple regional wall motion abnormalities. The estimated ejection fraction is 20-25%. Abnormal left ventricular diastolic function is observed. The right ventricular global systolic function is mildly to moderately reduced. The apex of the right ventricle appears hypokinetic. The mid to distal RV free wall segments are hypokinetic and the proximal segments are preserved. There is mild aortic stenosis. There is a trace of mitral regurgitation. There is trace to mild tricuspid regurgitation. There is evidence of moderate pulmonary hypertension. The inferior vena cava is dilated. Measurements Name Value Normal Range RVDdMajor (2D) 1.9 cm (2.2 - 4.4) RAd ISD 4CH 3.4 cm (3.4 - 4.9) IVSd (2D) 0.9 cm (0.6 - 1) LVPWd (2D) 1 cm (0.6 - 1) LVIDd (2D) 4 cm (3.6 - 5.4) LVIDs (2D) 3 cm - LV FS (2D) 25 % (25 - 45) Aortic Annulus 2 cm (1.4 - 2.6) Ao root diameter (2D) 3.4 cm (2.1 - 3.5) LA dimension (AP) 2D 2.2 cm (2.3 - 3.8) LAd ISD 4CH 3.8 cm (2.9 - 5.3) LA ISD 4CH W 3.5 cm (2.5 - 4.5) Name Value Normal Range LA ESV BP (A/L) index 18.5 ml/m2 - Name Value Normal Range MV E-wave Vmax 0.82 m/sec - MV deceleration time 165 msec - MV A-wave Vmax 0.91 m/sec - MV E:A ratio 0.9 ratio - LV septal e' Vmax 0.04 m/sec - LV lateral e' Vmax 0.05 m/sec - LV E:e' septal ratio 20.5 ratio - LV E:e' lateral ratio 16.4 ratio - Name Value Normal Range AV Vmax 0.94 m/sec - AV VTI 18.1 cm - AV peak gradient 4 mmHg - AV mean gradient 2 mmHg - LVOT diameter 2 cm - LVOT Vmax 0.61 m/sec - LVOT VTI 12.1 cm - LVOT peak gradient 2 mmHg - LVOT mean gradient 1 mmHg - DOI (VTI) 0.67 ratio - DOI (Vmax) 0.65 ratio - BLAKE (continuity Vmax) 2 cm2 - BLAKE (continuity VTI) 2.1 cm2 - Name Value Normal Range TR Vmax 3.3 m/sec - TR peak gradient 44 mmHg - RAP 15 mmHg - RVSP 59 mmHg - IVC diameter 2.2 cm - Name Value Normal Range PV Vmax 0.75 m/sec - Wallmotion BAS Hypokinetic BA Hypokinetic BAL Normal EMERITA Normal BI Hypokinetic BIS Normal MAS Akinetic MA Hypokinetic MAL Hypokinetic MIL Hypokinetic RI Akinetic MIS Akinetic Akinetic AA Hypokinetic AL Akinetic AI Akinetic APEX Akinetic
[2017-12-07] MEDS ORDERED: Enoxaparin(*) 60 MG/0.6 ML SYR SUBCUT SCH (12:00)
[2017-12-07] MEDS ORDERED: Furosemide IV* 10 MG/ML 2 ML VIAL (20 MG) IV SLOW PU ONE ×3 (12:19→23:59)
[2017-12-07] MEDS ORDERED: Atorvastatin* 80 MG TAB PO ONE (12:37)
--- NOTE | 2017-12-07 13:32 | RAD ---
HISTORY: eval for dvt COMPARISONS: None relevant TECHNIQUE: Multiple transverse and longitudinal ultrasound images were obtained of the bilateral lower extremities from the level of the common femoral vein inferiorly through to the infrapopliteal veins using grayscale, color Doppler, and spectral Doppler imaging with and without compression and with augmentation. FINDINGS: VEINS: The venous system of the bilateral lower extremities is compressible throughout its course, with normal flow on color Doppler imaging and normal response to augmentation on spectral Doppler imaging. The venous valve is noted in the left popliteal vein. SOFT TISSUES: Unremarkable. OTHER FINDINGS: None. IMPRESSION: NO RIGHT LOWER EXTREMITY DEEP VEIN THROMBOSIS. NO LEFT LOWER EXTREMITY DEEP VEIN THROMBOSIS.
[2017-12-07] MEDS: Famotidine TAB* 20 MG PO SCH ×2 (14:02→22:34)
[2017-12-07] MEDS: Heparin VIAL(*) 5000 UNITS/ML VIAL (FIVE THOUSAND) IV SCH (14:04)
[2017-12-07] MEDS: Heparin DRIP 25,000 UNITS(*) 25,000 UNITS/500 ML BAG IV SCH (14:04)
[2017-12-07] MEDS ORDERED: diPHENhydraMINE IV* 50 MG/ML 1 ml VIAL (BENADRYL) IV ONE (16:15)
[2017-12-07] MEDS ORDERED: diPHENhydraMINE IV* 50 MG/ML 1 ml VIAL (BENADRYL) ONE (16:22)
[2017-12-07] MEDS: methylPREDNISolone SOD 40 MG* 1 ML VIAL IV SCH (16:37)
[2017-12-07] MEDS ORDERED: diPHENhydraMINE PO* 50 MG PO ONE (17:00)
[2017-12-07] MEDS ORDERED: Iohexol 350* (CONTRAST) 500 ML MDV IV ONE (17:23)
--- NOTE | 2017-12-07 18:06 | RAD ---
INDICATION: Shortness of breath COMPARISON: Most recent comparison CT is noncontrast CT of the chest dated April 26, 2017 TECHNIQUE: Axial source images were acquired following the administration of 59 mL Omnipaque [address] angiographic technique. Coronal and sagittal reconstructed images were constructed and reviewed. FINDINGS: There there are no filling defects in the pulmonary arteries to indicate acute pulmonary embolic disease. Similar to the prior CT examination there are diffuse centrilobular emphysematous changes of the lungs. There has been interval development of a small left-sided pleural effusion with a small degree of adjacent compressive atelectasis of the left lower lobe. Adjacent to the lateral dependent portion of the left fissure is a small stable nodule measuring 2 x 4 mm in the axial plane (image 46) of doubtful clinical consideration. There is mild calcification of the thoracic aorta. The heart is normal size. There is no pericardial effusion. There is no mediastinal, hilar, or axillary lymphadenopathy. Degenerative changes of the thoracic spine includes loss of intervertebral disc height. There is mild marginal osteophyte formation. Limited views of the upper abdomen show no abnormalities. IMPRESSION: 1. No CT of evidence of pulmonary embolism. 2. Interval appearance of a small left-sided pleural effusion with adjacent atelectasis of the left lower lobe. 3.
[2017-12-07] MEDS ORDERED: Azithromycin IV(*) 500 MG in NS 0.9% 250 ML* 250 ML IVPB SCH (22:00)
[2017-12-07] MEDS: Metoprolol Tartrate TAB* 25 MG PO SCH ×2 (22:35→22:37)
[2017-12-07] MEDS: cefTRIAXone(*) 1 GM in NS 0.9% 50 ML* 50 ML IVPB SCH (22:35)
[2017-12-08] MEDS ORDERED: Magnesium Sulfate 1 GM IV* 1 GM/100 ML BAG IV ONE (00:35)
[2017-12-08] MEDS: Albuterol/Ipratropium NEB.SOL* Albuterol 2.5 MG/Ipratropium 0.5 MG 3 ML INH SCH ×2 (03:13→08:08)
[2017-12-08] MEDS: methylPREDNISolone SOD 40 MG* 1 ML VIAL IV SCH (05:05)
[2017-12-08 05:43] LABS: Hematocrit 35 % (42-52); Hemoglobin 11.5 g/dl (14.0-18.0); Mean Corpuscular HGB Conc 33 g/dl (31-36); Mean Corpuscular Hemoglobin 32 pg (27-31); Mean Corpuscular Volume 96 fL (80-94); Mean Platelet Volume 8.2 um3 (7.4-10.4); Platelet Count 259 10^3/ul (150-450); Red Cell Distribution Width 14 % (10.5-15); White Blood Count 16.4 10^3/ul (3.5-10.8)
[2017-12-08 05:48] LABS: ABS Basophils 0 10^3/ul (0-0.2); ABS Eosinophils 0.1 10^3/ul (0-0.6); ABS Lymphocytes 0.5 10^3/ul (1.0-4.8); ABS Monocytes 0.9 10^3/ul (0-0.8); ABS Neutrophils 15.4 10^3/ul (1.5-7.7); ABS Nucleated RBC 0 10^3/ul; Eosinophil % 0.5 % (0-6); Lymphocyte % 2.7 % (25-47); Nucleated Red Blood Cells % 0
[2017-12-08] MEDS: Mometasone/Formoter 200/5 MDI INH SCH ×2 (08:08→19:22)
[2017-12-08] MEDS: Aspirin EC TAB* 81 MG TAB.EC PO SCH (09:05)
[2017-12-08] MEDS: Metoprolol Tartrate TAB* 25 MG PO SCH ×2 (09:05→21:10)
[2017-12-08] MEDS: Famotidine TAB* 20 MG PO SCH (09:05)
[2017-12-08] MEDS ORDERED: Albuterol 2.5 MG/3 ML NEB.SOL* (0.083%) INH PRN (12:01)
--- NOTE | 2017-12-08 12:14 | PN ---
Progress Note - Progress Note Date of Service: 12/08/17 Note: Progress Note -- Critical Care 24 hour events -s/p CTA chest wihtout PE -s/p diuretics; now off hiflow/15L oxi; on nc 2-3L -no cp/sob/n/v -feels better as per patient -remains in nsr Tele: NSR Vitals: Vital Signs Temp 98.6 F 12/08/17 08:00 Pulse 88 12/08/17 10:01 Resp 32 12/08/17 10:01 BP 109/69 12/08/17 10:00 Pulse Ox 99 12/08/17 10:01 Intake & Output 12/07/17 12/08/17 12/08/17 18:59 06:59 18:59 Intake Total 815 1284 Output Total 700 1450 100 Balance 115 -166 -100 Weight 55.883 kg Intake: IV Fluids 459 NS 459 IVPB 335 44 NS 335 44 Medicated IV 541 azithromycin 250 heparin 191 magnesium 100 Oral 480 240 Output: Urine 700 1450 100 O2/Vent: 2-4L NC Infusions: heplock Current Medications: Acetaminophen (Tylenol Tab*) 650 mg PO Q4H PRN PRN Reason: FEVER/PAIN Albuterol (Ventolin 2.5 Mg/3 Ml Neb.Nancy*) 2.5 mg INH Q4H PRN PRN Reason: SOB/WHEEZING Aspirin (Aspirin Ec Tab*) 81 mg PO DAILY [facility] Last Admin: 12/08/17 09:05 Dose: 81 mg Atorvastatin Calcium (Lipitor*) 80 mg PO 2100 ONE Stop: 12/08/17 21:01 Famotidine (Pepcid Tab*) 20 mg PO DAILY [facility] Furosemide (Lasix Iv*) 20 mg IV SLOW PU ONCE ONE Stop: 12/08/17 14:01 Heparin Sodium (Porcine) (Heparin Vial(*)) 0 units IV .PER PROTOCOL [facility] Last Admin: 12/07/17 14:04 Dose: 3,350 units Ceftriaxone Sodium 1 gm/ (Sodium Chloride) 50 mls @ 200 mls/hr IVPB 2130 [facility] Stop: 12/09/17 00:00 Last Admin: 12/07/17 22:35 Dose: 200 mls/hr Heparin Sodium/Dextrose (Heparin Drip 25,000 Units(*)) 25,000 units in 500 mls @ 0 mls/hr IV PER RATE [facility]; Protocol Last Admin: 12/07/17 14:04 Dose: 13 mls/hr Methylprednisolone Sodium Succinate (Solu-Medrol 40 Mg) 20 mg IV DAILY [facility] Metoprolol Tartrate (Lopressor Tab*) 12.5 mg PO Q12HR [facility] Mometasone Furoate/Formoterol Fumar (Dulera 200/5 Mdi*) 2 puff INH BID [facility] Last Admin: 12/08/17 08:08 Dose: 2 puff Ondansetron HCl (Zofran Inj*) 4 mg IV Q6H PRN PRN Reason: NAUSEA Physical Exam: General: awake, alert, no distress, no diaphoresis Head: normocephalic, atraumatic HEENT: no pallor, no icterus, moist mucous membranes Neck: soft, supple, no jvd, no stridor CVS: normal rate, regular, no murmur Resp: bilateral air entry, no rhales, no wheeze, no rhonchi, no acc muscle use Abdomen: soft, nontender, nondistended, bowel sounds present Ext: pulses+, warm, no edema/tenderness Neuro: awake, alert, orientedx3, moving all extremities, no gross focal deficit Labs: Laboratory Results - last 24 hr 12/07/17 12/07/17 12/07/17 20:20 20:20 21:20 WBC RBC Hgb Hct MCV MCH MCHC RDW Plt Count MPV Neut % (Auto) Lymph % (Auto) [place] % (Auto) Eos % (Auto) Baso % (Auto) Absolute Neuts (auto) Absolute Lymphs (auto) Absolute Monos (auto) Absolute Eos (auto) Absolute Basos (auto) Absolute Nucleated RBC Nucleated RBC % APTT 131.7 H* 56.6 H Magnesium Troponin I 1.34 H* B-Natriuretic Peptide 12/08/17 12/08/17 12/08/17 03:00 05:30 05:30 WBC RBC Hgb Hct MCV MCH MCHC RDW Plt Count MPV Neut % (Auto) Lymph % (Auto) [place] % (Auto) Eos % (Auto) Baso % (Auto) Absolute Neuts (auto) Absolute Lymphs (auto) Absolute Monos (auto) Absolute Eos (auto) Absolute Basos (auto) Absolute Nucleated RBC Nucleated RBC % APTT 55.1 H Magnesium 2.2 Troponin I 1.23 H* B-Natriuretic Peptide 1321 H 12/08/17 05:30 WBC 16.4 H RBC 3.60 L Hgb 11.5 L Hct 35 L MCV 96 H MCH 32 H MCHC 33 RDW 14 Plt Count 259 MPV 8.2 Neut % (Auto) 91.5 H Lymph % (Auto) 2.7 L [place] % (Auto) 5.2 Eos % (Auto) 0.5 Baso % (Auto) 0.1 Absolute Neuts (auto) 15.4 H Absolute Lymphs (auto) 0.5 L Absolute Monos (auto) 0.9 H Absolute Eos (auto) 0.1 Absolute Basos (auto) 0 Absolute Nucleated RBC 0 Nucleated RBC % 0 APTT Magnesium Troponin I B-Natriuretic Peptide Imaging: cxr 12/06 - hyperinflated lungs, no gross infiltrate/effusion/ptx Assessment: 82y M w/pmhx Severe COPD on nocturnal O2 2L; comes to ER 12/06 for complaints of progressive dyspnea on exertion, and then on rest for the past 1 week. Patient states he uses 2L at night but increasing dyspnea requiring O2 in the daytime continuously. In ER, he was tachypneic, tachycardic, placed on NRM then vapotherm. CXR without clear infiltrate but he did have an elevated WBC. Started on empiric Abx coverage, started on therapy for COPD exacerbation suspected. 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 delirium prec. CVS- CTA chest negative for PE, Duplex neg for DVT. improved with IV diuretics. Starte on BB/asa/statin yesterday. cont IV heparin for NSTEMI. EKG now. trop peaked to 1.3 and now downtrending. Suspect this to be CHF exaccerbation with possible underlying coronary event. has baseline Qwaves and multiple WMA on TTE , which point to a possible Ischemic CMP origin. Will continue NSTEMI tx. Cardiology consult called. Discussed with and patient about next steps, they were interested in cardiac cath given his comorbidities. Repeat Lasix 20mg IV x1 today. Resp- on NC 2-4 L, titrating. Lungs withotu sig rhales. Dec solumedrol to 20mg daily; eventually in 2-3 days decrease to baseline 5mg daily prednisone. Albuterol PRN. Decrease IV abx, no clear infection noted, no sputum production. clinical suspicion was this was not a pure COPD exaccerbation. ID- afebrile. wbc 18,10,16. May be related to reactive process/chf exaccerbation + steroids. Nontoxic, no clear infiltrate. Low suspicion for active infection. will continue 1 more day of ceftriaxone (day#3), d/c azithromycin. On tapering IV steroids. GI- change to cardiac diet. h2b proph. Renal- Cr okay. Replete 40meq KCL po. no acidosis. making good urine, neg balance with IV lasix 20mg x2. no IVF. repeat IV lasix 20mg today. s/p CTA with contrast 12/07, monitor for LILLIAN. no mayo. Heme- hg stable. plt okay. IV heparin for NSTEMI, follow ptt. Endo- fingerstick q6h. Musculsk- pressure ulcer prophylaxis. oob to chair. Wounds- none Nutrition- cardiac diet DVT prophylaxis: IV heparin GI prophylaxis: pepcid Central Line: no Arterial Line: no Mayo Cathetor: no Disposition: ICU today Code Status: full code Jonah Yanez MD [employer]el Nailing Machine Operator (Electronically Signed)
[2017-12-08] MEDS ORDERED: Potassium Chlor TAB* 20 MEQ TAB.ER PO ONE (12:16)
[2017-12-08] MEDS ORDERED: Furosemide IV* 10 MG/ML 2 ML VIAL (20 MG) IV SLOW PU ONE (14:00)
[2017-12-08 14:08] LABS: EGFR Non-African American 67.1 (>60)
[2017-12-08] MEDS ORDERED: Potassium Chloride LIQUID* 20 MEQ PACKET PO ONE (18:48)
[2017-12-08] MEDS ORDERED: nitroGLYCERIN DRIP* 25,000 MCG/250 ML BTL IV SCH (19:00)
[2017-12-08] MEDS ORDERED: Atorvastatin* 80 MG TAB PO ONE (21:00)
[2017-12-08] MEDS ORDERED: Metoprolol Tartrate TAB* 25 MG PO SCH (21:00)
[2017-12-08] MEDS: cefTRIAXone(*) 1 GM in NS 0.9% 50 ML* 50 ML IVPB SCH (21:11)
--- NOTE | 2017-12-08 23:03 | CONS ---
CONSULTATION REPORT: ADDENDUM: His vital signs at the time of exam were, blood pressure 126/76, pulse of 103, 94% on 2 L nasal canula. ALLERGIES: Include CONTRAST which results in hives. [id number] #: [id number] MTDD
--- NOTE | 2017-12-09 01:40 | CONS ---
CC: Flaco Craig MD; Deondre Dumont MD CARDIOLOGY CONSULTATION: DATE OF CONSULT: 12/08/17 REASON FOR CONSULT: Cardiomyopathy, heart failure, non-ST elevation [place]. PATIENT OF: Dr. Craig and suri. CONSULTING PHYSICIAN: Jonah Yanez MD HISTORY OF PRESENT ILLNESS: This is a very pleasant 82-year-old gentleman who has a history of coronary artery disease. He apparently has severe obstructive COPD by PFT testing in the past. He was diagnosed 7 years ago and has been treated with inhalers. He said he was hospitalized in April with what was thought was the flu and has been using O2 at night since then. He has noticed that usually he can walk 100 feet to his mailbox and back without a problem; but over the last month, he has had to stop half way 40 feet or so. He also walks slower going up 3 or 4 steps into his house. He also has developed orthopnea requiring 2 pillows to prop himself up at night. He was getting more short of breath right before admission and went to see Dr. Craig. He felt congested, but no cough. No fevers, but sometimes some chills. Because of those findings, he saw his primary but then became more short of breath in the evening and he was brought to the emergency room. At that point, he was short of breath just walking down the hallway a few feet. He denied any chest pain. He thought that he had a COPD exacerbation. His initial troponin was mildly elevated. He was hydrated. He was more short of breath, but continued to be short of breath yesterday. He had a CT angiography performed on 12/07/17, which revealed no CT evidence of pulmonary embolism, interval appearance of a small left pleural effusion with adjacent atelectasis compared to April and that was in the left lower lobe. He had a transthoracic echocardiogram performed on 12/06/17, which revealed severe LV dysfunction, EF of 20% to 25%, abnormal left ventricular diastolic function, the mid anterior septum, mid inferoseptal, apical septal, apical lateral and apical inferior segments were akinetic. There was severe hypokinesis elsewhere. There was abnormal diastolic function. There was mild to moderate RV dysfunction. The mid to distal RV free [place] appeared to be hypokinetic and the proximal segments are preserved. There was mild aortic stenosis and trace MR, trace to mild TR and moderate pulmonary hypertension with a PA pressure of 59, there is no prior study for comparison. Because of those findings, he was given IV Lasix with some improvement in his breathing, he had been on 100%, today he is on 2 L. he was able to get out of bed and sit in the chair. He denies any chest pain, palpitations, syncope or near syncope. He did have a 7-beat run of nonsustained VT last night and another 4-beat run. PAST MEDICAL HISTORY: COPD and tobacco use of half pack a day for 40 years until 2 weeks ago. He denies any surgeries. ALLERGIES: Include CONTRAST which results in hives. MEDICATIONS AT HOME: Include: 1. Xopenex. 2. Pulmicort. 3. Albuterol. 4. Prednisone 5 mg a day. 5. Stiolto. 6. Prednisone. As an inpatient, he is on: 1. Acetaminophen. 2. Albuterol. 3. Aspirin. 4. Atorvastatin 80 mg a day. 5. Ceftriaxone. 6. Famotidine. 7. IV heparin. 8. Methylprednisolone. 9. Metoprolol 12.5 mg b.i.d. 10. Dulera. 11. Zofran. FAMILY HISTORY: He had 7 brothers and sisters, they have all and of cancer, no premature coronary artery disease. His father of cancer in his 70s and a brother at 70. SOCIAL HISTORY: He is with a second , who accompanies him, for the last 30 years. He had 2 children, 1 . 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 He drinks at least 1 glass of gin. He says he has alcohol each night. He has 1 glass of vodka and tonic and then occasionally a liquor before bedtime, 1 to 2 drinks at night. REVIEW OF SYSTEMS: Review of systems x10 was negative except as above. PHYSICAL EXAM: He is a well-developed, well-nourished gentleman, in no apparent distress. JVD of approximately 12 cm. Carotids 2+ without bruits. No cervical adenopathy, no thyromegaly. Extraocular muscles intact. Sclerae anicteric. Cardiac Exam: S1, S2 with a soft 1/6 systolic ejection murmur at the base and an S3 gallop. Chest was clear with decreased breath sounds and prolonged expiratory phase. No CVAT. Abdomen: Bowel sounds present. Nontender. Femoral pulses intact with bruits bilaterally. Distal pulses, dorsalis pedis present. Posterior tibialis diminished bilaterally, no edema, negative Homans. Motor strength 5/5 bilaterally. Deep tendon reflexes 2/4. He is alert and oriented x3. DIAGNOSTIC STUDIES/LAB DATA: Include white count of 16.4 down from 18.6. Hemoglobin 11.5, hematocrit of 35, platelet count 259. Sodium 140, potassium of 3.8, BUN 22, creatinine 1.06, calcium was 6.8 on admission and now up to 8.5 , lactic acid was 2.3 on admission down to 1.6 yesterday, troponins were 0.13 on admission and 1.34 yesterday down to 1.23 today. BNP initially was 153 on , today was up to 1321. EKG from admission on 12/06/17 revealed sinus tachycardia at 124 with anterior septal [place]. His EKG from 12/07/17 revealed sinus rhythm with right atrial enlargement and anterior septal [place], nonspecific lateral ST- T changes and an EKG from today revealed sinus rhythm with right atrial enlargement, possible left atrial enlargement, inferior lateral ST-T changes, consider ischemia and PVC and new anterior T wave changes. IMPRESSION: Mr. Hawkins appears to have chronic obstructive pulmonary disease and worsening dyspnea on exertion culminating with pulmonary edema and non-ST elevation myocardial infarction. He also has severe LV dysfunction and nonsustained ventricular tachycardia. His prognosis is guarded given his advanced age and severe LV dysfunction and comorbidities including ventricular tachycardia. He is at increased risk for morbidity and mortality in the near future and would be at increased risk for complications at a major intervention including catheterization and revascularization or surgery. I discussed this frankly with him and his and they would like to think about their options. I also explained that his LV function is severely depressed, it is not clear whether this is stunning or permanent. Therefore, an assessment for viability would be helpful in guiding our decision making. For the time being, I recommend following: I will continue low dose beta-tonie as tolerated. We will continue gentle diuresis as heart rate and blood pressure will tolerate. Would correct his potassium and maintain it over 4. We will check magnesium. We will consider adding low dose nitrates to improve coronary ischemia. Once his volume status is corrected, we could consider trial of an VI inhibitor. Consider repeat echocardiogram during his admission to see if his LV function improves. We could also consider nuclear stress test with thallium to evaluate for viability. If the patient is willing to proceed with revascularization, he would require a cath and most likely surgery given the extensive wall motion abnormality suggesting 3-vessel disease. Further recommendations will depend on his clinical course. My findings were discussed with the patient, his and Dr. Yanez. [id number]/CPS #: [id number] CONSULTATION REPORT: ADDENDUM: His vital signs at the time of exam were, blood pressure 126/76, pulse of 103, 94% on 2 L nasal canula. ALLERGIES: Include CONTRAST which results in hives. [id number]/CPS #: [id number] MTDD
[2017-12-09 04:10] LABS: ABS Basophils 0.1 10^3/ul (0-0.2); ABS Eosinophils 0 10^3/ul (0-0.6); ABS Lymphocytes 1.2 10^3/ul (1.0-4.8); ABS Monocytes 1.2 10^3/ul (0-0.8); ABS Neutrophils 16.6 10^3/ul (1.5-7.7); ABS Nucleated RBC 0 10^3/ul; Eosinophil % 0.1 % (0-6); Hematocrit 38 % (42-52); Hemoglobin 12.6 g/dl (14.0-18.0); Lymphocyte % 6.1 % (25-47); Mean Corpuscular HGB Conc 33 g/dl (31-36); Mean Corpuscular Hemoglobin 32 pg (27-31); Mean Corpuscular Volume 97 fL (80-94); Mean Platelet Volume 8.5 fL (7.4-10.4); Nucleated Red Blood Cells % 0; Platelet Count 294 10^3/ul (150-450); Red Blood Count 3.94 10^6/ul (4.00-5.40); Red Cell Distribution Width 14 % (10.5-15)
[2017-12-09 04:28] LABS: EGFR Non-African American 67.1 (>60)
[2017-12-09] MEDS: Heparin DRIP 25,000 UNITS(*) 25,000 UNITS/500 ML BAG IV SCH (05:09)
[2017-12-09] MEDS: Heparin VIAL(*) 5000 UNITS/ML VIAL (FIVE THOUSAND) IV SCH ×2 (05:10→19:11)
[2017-12-09] MEDS: Mometasone/Formoter 200/5 MDI INH SCH ×2 (08:26→20:35)
[2017-12-09] MEDS: methylPREDNISolone SOD 40 MG* 1 ML VIAL IV SCH (09:06)
[2017-12-09] MEDS: Metoprolol Tartrate TAB* 25 MG PO SCH ×2 (09:07→20:28)
[2017-12-09] MEDS: Aspirin EC TAB* 81 MG TAB.EC PO SCH (09:07)
[2017-12-09] MEDS: Famotidine TAB* 20 MG PO SCH (09:07)
[2017-12-09] MEDS ORDERED: Furosemide IV* 10 MG/ML 2 ML VIAL (20 MG) IV SLOW PU ONE (10:00)
--- NOTE | 2017-12-09 10:22 | PN ---
Progress Note - Progress Note Date of Service: 12/09/17 Note: Progress Note -- Critical Care 24 hour events -overnight some NSVT noted again -no complaints of SOB/CP/palpitations as per pt. -remains on IV heparin; NGT not started overnight -HR 80s, BP 100-110s; good urine otuput yesterday -this morning in bed, reading paper, feels well. Tele: NSR, NSVT noted Vitals: Vital Signs Temp 97.6 F 12/09/17 08:00 Pulse 74 12/09/17 10:01 Resp 25 12/09/17 10:01 BP 84/55 12/09/17 10:00 Pulse Ox 95 12/09/17 10:01 Intake & Output 12/08/17 12/09/17 12/09/17 18:59 06:59 18:59 Intake Total 577 900 150 Output Total 500 1500 Balance 77 -600 150 Weight 57.606 kg Intake: IV Fluids 50 ABX - CEFTRIAXONE 50 Medicated IV 157 heparin 157 Oral 420 850 150 Output: Urine 500 1500 Other: # Voids 1 O2/Vent: 2L NC Infusions: IV heparin Current Medications Acetaminophen (Tylenol Tab*) 650 mg PO Q4H PRN PRN Reason: FEVER/PAIN Albuterol (Ventolin 2.5 Mg/3 Ml Neb.Nancy*) 2.5 mg INH Q4H PRN PRN Reason: SOB/WHEEZING Aspirin (Aspirin Ec Tab*) 81 mg PO DAILY [facility] Last Admin: 12/09/17 09:07 Dose: 81 mg Famotidine (Pepcid Tab*) 20 mg PO DAILY [facility] Last Admin: 12/09/17 09:07 Dose: 20 mg Heparin Sodium (Porcine) (Heparin Vial(*)) 0 units IV .PER PROTOCOL [facility] Last Admin: 12/09/17 05:10 Dose: 1,700 units Heparin Sodium/Dextrose (Heparin Drip 25,000 Units(*)) 25,000 units in 500 mls @ 0 mls/hr IV PER RATE [facility]; Protocol Last Admin: 12/09/17 05:09 Dose: 15 mls/hr Nitroglycerin/Dextrose (Nitroglycerin Drip*) 25,000 mcg in 250 mls @ 6 mls/hr IV .(Initial Rate) [facility]; Protocol Last Admin: 12/09/17 09:21 Dose: 6 mls/hr Methylprednisolone Sodium Succinate (Solu-Medrol 40 Mg) 20 mg IV DAILY [facility] Last Admin: 12/09/17 09:06 Dose: 20 mg Metoprolol Tartrate (Lopressor Tab*) 12.5 mg PO Q12HR [facility] Last Admin: 12/09/17 09:07 Dose: 12.5 mg Mometasone Furoate/Formoterol Fumar (Dulera 200/5 Mdi*) 2 puff INH BID [facility] Last Admin: 12/09/17 08:26 Dose: 2 puff Ondansetron HCl (Zofran Inj*) 4 mg IV Q6H PRN PRN Reason: NAUSEA Physical Exam: General: awake, alert, no distress, no diaphoresis Head: normocephalic, atraumatic HEENT: no pallor, no icterus, moist mucous membranes Neck: soft, supple, no jvd, no stridor CVS: normal rate, regular, no murmur Resp: bilateral air entry, no rhales, no wheeze, no rhonchi, no acc muscle use Abdomen: soft, nontender, nondistended, bowel sounds present Ext: pulses+, warm, no edema/tenderness Neuro: awake, alert, orientedx3, moving all extremities, no gross focal deficit Labs: Laboratory Results - last 24 hr 12/08/17 12/09/17 12/09/17 13:00 03:51 03:51 WBC RBC Hgb Hct MCV MCH MCHC RDW Plt Count MPV Neut % (Auto) Lymph % (Auto) [place] % (Auto) Eos % (Auto) Baso % (Auto) Absolute Neuts (auto) Absolute Lymphs (auto) Absolute Monos (auto) Absolute Eos (auto) Absolute Basos (auto) Absolute Nucleated RBC Nucleated RBC % APTT 40.0 H Sodium 140 138 Potassium 3.8 4.8 Chloride 104 104 Carbon Dioxide 25 29 Anion Gap 11 5 BUN 22 24 Creatinine 1.06 1.06 Est GFR ( Amer) 81.1 81.1 Est GFR (Non-Af Amer) 67.1 67.1 BUN/Creatinine Ratio 20.8 H 22.6 H Glucose 195 H 111 H Hemoglobin A1c Calcium 8.5 L 8.9 Magnesium 2.2 Total Creatine Kinase 118 CK-MB (CK-2) 9.2 H Troponin I 0.98 H* Triglycerides 78 Cholesterol 158 LDL Cholesterol 84 HDL Cholesterol 58.8 TSH 0.37 12/09/17 12/09/17 03:51 03:51 WBC 19.0 H RBC 3.94 L Hgb 12.6 L Hct 38 L MCV 97 H MCH 32 H MCHC 33 RDW 14 Plt Count 294 MPV 8.5 Neut % (Auto) 87.2 H Lymph % (Auto) 6.1 L [place] % (Auto) 6.3 Eos % (Auto) 0.1 Baso % (Auto) 0.3 Absolute Neuts (auto) 16.6 H Absolute Lymphs (auto) 1.2 Absolute Monos (auto) 1.2 H Absolute Eos (auto) 0 Absolute Basos (auto) 0.1 Absolute Nucleated RBC 0 Nucleated RBC % 0 APTT Sodium Potassium Chloride Carbon Dioxide Anion Gap BUN Creatinine Est GFR ( Amer) Est GFR (Non-Af Amer) BUN/Creatinine Ratio Glucose Hemoglobin A1c 5.8 H Calcium Magnesium Total Creatine Kinase CK-MB (CK-2) Troponin I Triglycerides Cholesterol LDL Cholesterol HDL Cholesterol TSH Imaging: cxr 12/06 - hyperinflated lungs, no gross infiltrate/effusion/ptx Assessment: 82y M w/pmhx Severe COPD on nocturnal O2 2L; comes to ER 12/06 for complaints of progressive dyspnea on exertion, and then on rest for the past 1 week. Patient states he uses 2L at night but increasing dyspnea requiring O2 in the daytime continuously. In ER, he was tachypneic, tachycardic, placed on NRM then vapotherm. CXR without clear infiltrate but he did have an elevated WBC. Started on empiric Abx coverage, started on therapy for COPD exacerbation suspected. 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 delirium prec. CVS- noted NSVT overnight, remains on metoprolol 12.5 BID, HR 80s. no indication for amio. Started NTG 10mcg/min now, BP 80s, if remaisn in 80s within the next hour will d/c NTG. IV lasix based on BP later this afternoon, no active resp distress, clear lungs. Cont BB/asa/statin. cont IV heparin for NSTEMI. EKG with inverted tqwaves inf/lateral 12/08 and 12/09. Trop peaked/ downtrending. Plan for repeat TTE monday to assess LV function. Cardiolgoy discussed with family, they will think about cardiac cath over the weekend but leanign toward medical therapy only. WIll contact cardiology about additional antiplatelet therapy to coverage NSTEMI if no plan for intervention. Resp- on NC 2-4 L, titrating down. Lungs withotu sig rhales. solumedrol to 20mg daily, tapering off. Eventual taper to baseline 5mg daily prednisone. Albuterol PRN. Off IV abx, no clear infection noted. Baseline COPD but likely a mild exaccerbation worsened with decompensated systolic CHF. ID- afebrile. wbc 19. Nontoxic. Suspect reactive /2 to steroid + NSTEMI + CHF exaccerbation. 3 days of ceftriaxone complete. monitor off abx. GI- cardiac diet. h2b proph. Renal- Cr okay. K and Mg levels normal. Making urine. appears euvolemic. PRN lasix. s/p CTA with contrast 12/07, monitor for LILLIAN. no mayo. Heme- hg stable. plt okay. IV heparin for NSTEMI, follow ptt. Antiplatelets for NSTEMI. Endo- fingerstick as needed. hba1c 5.8, tsh normal. Musculsk- pressure ulcer prophylaxis. oob to chair today Wounds- none Nutrition- cardiac diet DVT prophylaxis: IV heparin GI prophylaxis: pepcid Central Line: no Arterial Line: no Mayo Cathetor: no Disposition: ICU Code Status: FULL CODE, discussions with family, leaning toward DNR/DNI Jonah Yanez MD Cloth Printing Inspector (Electronically Signed)
[2017-12-10 07:01] LABS: Hematocrit 37 % (42-52); Hemoglobin 12.3 g/dl (14.0-18.0); Mean Corpuscular HGB Conc 34 g/dl (31-36); Mean Corpuscular Hemoglobin 32 pg (27-31); Mean Corpuscular Volume 96 fL (80-94); Mean Platelet Volume 8.5 fL (7.4-10.4); Platelet Count 270 10^3/ul (150-450); Red Blood Count 3.81 10^6/ul (4.00-5.40); Red Cell Distribution Width 14 % (10.5-15); White Blood Count 14.8 10^3/ul (3.5-10.8)
[2017-12-10] MEDS: Mometasone/Formoter 200/5 MDI INH SCH ×2 (07:09→19:12)
[2017-12-10 07:18] LABS: EGFR Non-African American 71.7 (>60)
[2017-12-10 07:22] LABS: ABS Basophils 0.1 10^3/ul (0-0.2); ABS Eosinophils 0.1 10^3/ul (0-0.6); ABS Lymphocytes 1.8 10^3/ul (1.0-4.8); ABS Monocytes 1.1 10^3/ul (0-0.8); ABS Neutrophils 11.8 10^3/ul (1.5-7.7); ABS Nucleated RBC 0 10^3/ul; Eosinophil % 0.7 % (0-6); Lymphocyte % 12.2 % (25-47); Nucleated Red Blood Cells % 0
[2017-12-10] MEDS: methylPREDNISolone SOD 40 MG* 1 ML VIAL IV SCH (08:12)
[2017-12-10] MEDS: Metoprolol Tartrate TAB* 25 MG PO SCH ×2 (08:13→22:01)
[2017-12-10] MEDS: Famotidine TAB* 20 MG PO SCH (08:13)
[2017-12-10] MEDS: Aspirin EC TAB* 81 MG TAB.EC PO SCH (08:13)
--- NOTE | 2017-12-10 10:03 | PN ---
Progress Note - Progress Note Date of Service: 12/10/17 Note: Progress Note -- Critical Care 24 hour events -no further NSVT noted overnight; occassiional PVCs -in bed, was in chair yesterday -no cp/sob, feels okay -on RA, sats upper 90s -on NTG, down to 6mcg/min now, due to lower MAPs; bp now 90-110 -remains on IV heparin Tele: NSR Vitals: Vital Signs Temp 98.8 F 12/10/17 07:22 Pulse 90 12/10/17 07:45 Resp 26 12/10/17 07:45 BP 118/70 12/10/17 07:45 Pulse Ox 94 12/10/17 07:45 Intake & Output 12/09/17 12/10/17 12/10/17 19:59 06:59 18:59 Intake Total Output Total Balance Weight Intake: IV Fluids ABX - CEFTRIAXONE NS Medicated IV CC - Nitroglycerine/ Tridil heparin Heparin Oral Output: Urine O2/Vent: RA Infusions: IV heparin, IV NTG 6mcg/min Current Medications Acetaminophen (Tylenol Tab*) 650 mg PO Q4H PRN PRN Reason: FEVER/PAIN Last Admin: 12/10/17 08:13 Dose: 650 mg Albuterol (Ventolin 2.5 Mg/3 Ml Neb.Nancy*) 2.5 mg INH Q4H PRN PRN Reason: SOB/WHEEZING Aspirin (Aspirin Ec Tab*) 81 mg PO DAILY [facility] Last Admin: 12/10/17 08:13 Dose: 81 mg Famotidine (Pepcid Tab*) 20 mg PO DAILY [facility] Last Admin: 12/10/17 08:13 Dose: 20 mg Heparin Sodium (Porcine) (Heparin Vial(*)) 0 units IV .PER PROTOCOL [facility] Last Admin: 12/09/17 19:11 Dose: 1,700 units Heparin Sodium/Dextrose (Heparin Drip 25,000 Units(*)) 25,000 units in 500 mls @ 0 mls/hr IV PER RATE [facility]; Protocol Last Admin: 12/09/17 05:09 Dose: 15 mls/hr Nitroglycerin/Dextrose (Nitroglycerin Drip*) 25,000 mcg in 250 mls @ 6 mls/hr IV .(Initial Rate) [facility]; Protocol Last Admin: 12/09/17 09:21 Dose: 6 mls/hr Methylprednisolone Sodium Succinate (Solu-Medrol 40 Mg) 20 mg IV DAILY [facility] Last Admin: 12/10/17 08:12 Dose: 20 mg Metoprolol Tartrate (Lopressor Tab*) 12.5 mg PO Q12HR [facility] Last Admin: 12/10/17 08:13 Dose: 12.5 mg Mometasone Furoate/Formoterol Fumar (Dulera 200/5 Mdi*) 2 puff INH BID [facility] Last Admin: 12/10/17 07:09 Dose: 2 puff Ondansetron HCl (Zofran Inj*) 4 mg IV Q6H PRN PRN Reason: NAUSEA Physical Exam: General: awake, alert, no distress, no diaphoresis Head: normocephalic, atraumatic HEENT: no pallor, no icterus, moist mucous membranes Neck: soft, supple, no jvd, no stridor CVS: normal rate, regular, no murmur Resp: bilateral air entry, no rhales, no wheeze, no rhonchi, no acc muscle use Abdomen: soft, nontender, nondistended, bowel sounds present Ext: pulses+, warm, no edema/tenderness Neuro: awake, alert, orientedx3, moving all extremities, no gross focal deficit Labs: Laboratory Results - last 24 hr 12/09/17 12/09/17 12/10/17 11:30 18:00 01:05 EST WBC RBC Hgb Hct MCV MCH MCHC RDW Plt Count MPV Neut % (Auto) Lymph % (Auto) [place] % (Auto) Eos % (Auto) Baso % (Auto) Absolute Neuts (auto) Absolute Lymphs (auto) Absolute Monos (auto) Absolute Eos (auto) Absolute Basos (auto) Absolute Nucleated RBC Nucleated RBC % APTT 52.7 H 45.1 H 82.1 H Sodium Potassium Chloride Carbon Dioxide Anion Gap BUN Creatinine Est GFR ( Amer) Est GFR (Non-Af Amer) BUN/Creatinine Ratio Glucose Calcium Magnesium Total Creatine Kinase CK-MB (CK-2) Troponin I 12/10/17 12/10/17 12/10/17 06:30 06:30 06:30 WBC 14.8 H RBC 3.81 L Hgb 12.3 L Hct 37 L MCV 96 H MCH 32 H MCHC 34 RDW 14 Plt Count 270 MPV 8.5 Neut % (Auto) 79.4 Lymph % (Auto) 12.2 L [place] % (Auto) 7.2 H Eos % (Auto) 0.7 Baso % (Auto) 0.5 Absolute Neuts (auto) 11.8 H Absolute Lymphs (auto) 1.8 Absolute Monos (auto) 1.1 H Absolute Eos (auto) 0.1 Absolute Basos (auto) 0.1 Absolute Nucleated RBC 0 Nucleated RBC % 0 APTT 60.8 H Sodium 139 Potassium 4.2 Chloride 101 Carbon Dioxide 31 Anion Gap 7 BUN 23 Creatinine 1.00 Est GFR ( Amer) 86.8 Est GFR (Non-Af Amer) 71.7 BUN/Creatinine Ratio 23.0 H Glucose 100 Calcium 8.8 Magnesium 2.1 Total Creatine Kinase 63 CK-MB (CK-2) 3.8 Troponin I 0.43 H* Imaging: cxr 12/06 - hyperinflated lungs, no gross infiltrate/effusion/ptx Assessment: 82y M w/pmhx Severe COPD on nocturnal O2 2L; comes to ER 12/06 for complaints of progressive dyspnea on exertion, and then on rest for the past 1 week. Patient states he uses 2L at night but increasing dyspnea requiring O2 in the daytime continuously. In ER, he was tachypneic, tachycardic, placed on NRM then vapotherm. CXR without clear infiltrate but he did have an elevated WBC. Started on empiric Abx coverage, started on therapy for COPD exacerbation suspected. 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 delirium prec. CVS- No further NSVT ovenright; no CP/SOB. cont asa/statin. cont low dose metoprolol 12.5mg bid (borderline BPs). cont IV heparin (day#5). on low dose NTG , may likely d/c today. If BPs do improved, may consider low dose ACEI trial. repeat EKG this morning. Symptomatically better it seems, will transition to chair and attempt to ambulate to street light servicer if exertional symptoms. Family decided on further option of angiogram/intervention, which would best be suited at larger center due to severe LV dysfunction and further options of mechanical support if need be. Plan for repeat TTE monday to assess LV function. Cardiology followup. Resp- on RA, no distress, Sats holding stable, lungs clear. PRN diuretics. Resp distress has improved, will taper to 10mg IV dialy, eventually back to pred 5mg diaily. Some higher dose steroid in his stress state may be helping. Albuterol PRN. Baseline COPD but likely a mild exaccerbation worsened with decompensated systolic CHF. ID- afebrile. wbc 14. Nontoxic. Suspect reactive 2/2 to steroid + NSTEMI + CHF exaccerbation. 3 days of ceftriaxone completed. monitor off abx. GI- cardiac diet. h2b proph. Renal- Cr okay. K and Mg levels normal. Making urine. appears euvolemic. PRN lasix. s/p CTA with contrast 12/07, monitor for LILLIAN. no mayo. Heme- hg stable. plt okay. IV heparin for NSTEMI, follow ptt. Antiplatelets for NSTEMI. Endo- fingerstick as needed. hba1c 5.8, tsh normal. Musculsk- pressure ulcer prophylaxis. oob to chair today/attempt ambulation. Wounds- none Nutrition- cardiac diet DVT prophylaxis: IV heparin GI prophylaxis: pepcid Central Line: no Arterial Line: no Mayo Cathetor: no Disposition: ICU Code Status: FULL CODE as per patient Jonah Yanez MD Glass Carrier (Electronically Signed)
--- NOTE | 2017-12-10 12:29 | ECHO ---
Patient: ROSE BAHENA [facility] Rec#: [id number] : 1935 Date: 12/10/2017 Age: 82y Height: 170 cm / 66.9 in Weight: 57.61 kg / 127.0 lbs Sex: M BSA: 1.67 Room#: [facility] Admit Date#: 12/06/2017 Type: Inpatient Referring: Deondre Dumont MD Reading: Deondre Dumont MD Event Lighting Specialist: Isela GaviriaRANDY CC: Alondra Duncan MD Transthoracic Echocardiogram Indication: Cardiomyopathy follow up BP: 104/66 HR: 75 Rhythm: NSR Findings History: COPD, smoker. This is a LIMITED study to reevaluate left ventricular function. Technical Comments: The study quality is fair. Left Ventricle: The left ventricular chamber size is normal. There are multiple regional wall motion abnormalities. There is global hypokinesis with more severe hypokinesis of the mid to distal anterolateral and midlateral segments and the mid inferior wall. The best preserved segments are proximal inferior and proximal anterior and anteroseptal. There is severely decreased left ventricular systolic function. The estimated ejection fraction is 25-30%. Right Ventricle: The right ventricular cavity size is normal. The right ventricular global systolic function is mildly reduced. Pericardium: There is no significant pericardial effusion. A pericardial fat pad is visualized. Conclusions There is severely decreased left ventricular systolic function. The estimated ejection fraction is 25-30%. There are multiple regional wall motion abnormalities. There is global hypokinesis with more severe hypokinesis of the mid to distal anterolateral and midlateral segments and the mid inferior wall. The best preserved segments are proximal inferior and proximal anterior and anteroseptal. The right ventricular global systolic function is mildly reduced. Interval improvement in most segments and the overall EF c/t 12/07/17.
[2017-12-10] MEDS: Nitroglycerin 0.1 mg/Hr PATCH* (2.5 MG) TRANSDERM SCH (13:22)
[2017-12-10] MEDS: Potassium Chloride LIQUID* 20 MEQ PACKET PO SCH (13:37)
[2017-12-10] MEDS: Heparin DRIP 25,000 UNITS(*) 25,000 UNITS/500 ML BAG IV SCH (13:38)
[2017-12-10] MEDS: Heparin VIAL(*) 5000 UNITS/ML VIAL (FIVE THOUSAND) IV SCH (14:23)
[2017-12-10] MEDS ORDERED: Nitro Patch/OINT Remove PATCH OFF SCH (20:00)
[2017-12-11 06:19] LABS: Hematocrit 39 % (42-52); Hemoglobin 13.2 g/dl (14.0-18.0); Mean Corpuscular HGB Conc 34 g/dl (31-36); Mean Corpuscular Hemoglobin 33 pg (27-31); Mean Corpuscular Volume 96 fL (80-94); Mean Platelet Volume 8.4 fL (7.4-10.4); Platelet Count 306 10^3/ul (150-450); Red Blood Count 4.05 10^6/ul (4.00-5.40); Red Cell Distribution Width 14 % (10.5-15); White Blood Count 15.3 10^3/ul (3.5-10.8)
[2017-12-11 07:01] LABS: ABS Basophils 0.1 10^3/ul (0-0.2); ABS Eosinophils 0.1 10^3/ul (0-0.6); ABS Lymphocytes 1.7 10^3/ul (1.0-4.8); ABS Monocytes 1.1 10^3/ul (0-0.8); ABS Neutrophils 12.3 10^3/ul (1.5-7.7); ABS Nucleated RBC 0 10^3/ul; Eosinophil % 0.8 % (0-6); Lymphocyte % 11.4 % (25-47); Nucleated Red Blood Cells % 0.2
[2017-12-11] MEDS: Nitroglycerin 0.1 mg/Hr PATCH* (2.5 MG) TRANSDERM SCH (07:50)
[2017-12-11] MEDS: Potassium Chloride LIQUID* 20 MEQ PACKET PO SCH (07:51)
[2017-12-11] MEDS: Aspirin EC TAB* 81 MG TAB.EC PO SCH (07:51)
[2017-12-11] MEDS: Metoprolol Tartrate TAB* 25 MG PO SCH (07:52)
[2017-12-11] MEDS: Famotidine TAB* 20 MG PO SCH (07:52)
[2017-12-11] MEDS: Mometasone/Formoter 200/5 MDI INH SCH ×2 (08:10→19:15)
[2017-12-11] MEDS ORDERED: methylPREDNISolone SOD 40 MG* 1 ML VIAL IV SCH (09:00)
[2017-12-11] MEDS ORDERED: Heparin DRIP 25,000 UNITS(*) 25,000 UNITS/500 ML BAG IV SCH (09:30)
[2017-12-11] MEDS ORDERED: Potassium Chlor TAB* 20 MEQ TAB.ER PO ONE ×2 (09:47→17:02)
[2017-12-11] MEDS ORDERED: Atorvastatin* 80 MG TAB PO ONE (09:52)
[2017-12-11] MEDS: Heparin VIAL(*) 5000 UNITS/ML VIAL (FIVE THOUSAND) IV SCH (09:53)
--- NOTE | 2017-12-11 11:08 | PN ---
Progress Note - Progress Note Date of Service: 12/11/17 Note: Progress Note -- Critical Care 24 hour events -no events overnight; nsr, bp stable, off ntg infusion -awake/alert -cardiology has seen patient this AM, no plan for cath at [facility] given high risk Tele: NSR Vitals: Vital Signs Temp 98.3 F 12/11/17 07:20 Pulse 71 12/11/17 10:01 Resp 23 12/11/17 10:01 BP 102/64 12/11/17 10:00 Pulse Ox 94 12/11/17 10:01 Intake & Output 12/10/17 12/11/17 12/11/17 18:59 06:59 18:59 Intake Total 1262 655 480 Output Total 1000 1250 250 Balance 262 -595 230 Weight 55.61 kg Intake: Medicated IV 122 255 CC - Nitroglycerine/ 24 Tridil heparin 98 255 Oral 1140 400 480 Output: Urine 1000 1250 250 Other: Estimated Stool Amount Large O2/Vent: RA Infusions: IV heparin Current Medications Acetaminophen (Tylenol Tab*) 650 mg PO Q4H PRN PRN Reason: FEVER/PAIN Last Admin: 12/10/17 08:13 Dose: 650 mg Albuterol (Ventolin 2.5 Mg/3 Ml Neb.Nancy*) 2.5 mg INH Q4H PRN PRN Reason: SOB/WHEEZING Aspirin (Aspirin Ec Tab*) 81 mg PO DAILY [facility] Last Admin: 12/11/17 07:51 Dose: 81 mg Atorvastatin Calcium (Lipitor*) 80 mg PO 2100 [facility] Budesonide (Pulmicort Neb*) mg INH BID [facility] Famotidine (Pepcid Tab*) 20 mg PO DAILY [facility] Last Admin: 12/11/17 07:52 Dose: 20 mg Heparin Sodium (Porcine) (Heparin Vial(*)) 0 units IV .PER PROTOCOL [facility] Last Admin: 12/11/17 09:53 Dose: 1,950 units Heparin Sodium/Dextrose (Heparin Drip 25,000 Units(*)) 25,000 units in 500 mls @ 0 mls/hr IV PER RATE [facility]; Protocol Last Admin: 12/11/17 09:53 Dose: 15 mls/hr Methylprednisolone Sodium Succinate (Solu-Medrol 40 Mg) 10 mg IV DAILY [facility] Last Admin: 12/11/17 07:55 Dose: 10 mg Metoprolol Tartrate (Lopressor Tab*) 12.5 mg PO Q12HR [facility] Last Admin: 12/11/17 07:52 Dose: 12.5 mg Mometasone Furoate/Formoterol Fumar (Dulera 200/5 Mdi*) 2 puff INH BID [facility] Last Admin: 12/11/17 08:10 Dose: 2 puff Nitroglycerin (Nitroglycerin 2.5 Mg Patch*) 1 patch TRANSDERM DAILY@0700 [facility] Last Admin: 12/11/17 07:50 Dose: 1 patch Ondansetron HCl (Zofran Inj*) 4 mg IV Q6H PRN PRN Reason: NAUSEA Pharmacy Profile Note (Nitro Patch/Oint Remove*) 1 note PATCH OFF 1999 [facility] Last Admin: 12/10/17 22:01 Dose: 1 patch Tiotropium [place] (Spiriva Respimat 2.5 Mcg(Nf)) 2 puff INH DAILY [facility] Physical Exam: General: awake, alert, no distress, no diaphoresis Head: normocephalic, atraumatic HEENT: no pallor, no icterus, moist mucous membranes Neck: soft, supple, no jvd, no stridor CVS: normal rate, regular, no murmur Resp: bilateral air entry, no rhales, no wheeze, no rhonchi, no acc muscle use Abdomen: soft, nontender, nondistended, bowel sounds present Ext: pulses+, warm, no edema/tenderness Neuro: awake, alert, orientedx3, moving all extremities, no gross focal deficit Labs: Laboratory Results - last 24 hr 12/10/17 12/10/17 12/11/17 13:30 20:42 03:10 WBC RBC Hgb Hct MCV MCH MCHC RDW Plt Count MPV Neut % (Auto) Lymph % (Auto) [place] % (Auto) Eos % (Auto) Baso % (Auto) Absolute Neuts (auto) Absolute Lymphs (auto) Absolute Monos (auto) Absolute Eos (auto) Absolute Basos (auto) Absolute Nucleated RBC Nucleated RBC % APTT 46.0 H 85.6 H 66.4 H Sodium Potassium Chloride Carbon Dioxide Anion Gap BUN Creatinine Est GFR ( Amer) Est GFR (Non-Af Amer) BUN/Creatinine Ratio Glucose Calcium 12/11/17 12/11/17 06:00 06:00 WBC 15.3 H RBC 4.05 Hgb 13.2 L Hct 39 L MCV 96 H MCH 33 H MCHC 34 RDW 14 Plt Count 306 MPV 8.4 Neut % (Auto) 79.9 Lymph % (Auto) 11.4 L [place] % (Auto) 7.5 H Eos % (Auto) 0.8 Baso % (Auto) 0.4 Absolute Neuts (auto) 12.3 H Absolute Lymphs (auto) 1.7 Absolute Monos (auto) 1.1 H Absolute Eos (auto) 0.1 Absolute Basos (auto) 0.1 Absolute Nucleated RBC 0 Nucleated RBC % 0.2 APTT Sodium 141 Potassium 3.2 L Chloride 110 Carbon Dioxide 24 Anion Gap 7 BUN 21 Creatinine 0.75 Est GFR ( Amer) 120.9 Est GFR (Non-Af Amer) 100.0 BUN/Creatinine Ratio 28.0 H Glucose 115 H Calcium 6.6 L Imaging: cxr 12/06 - hyperinflated lungs, no gross infiltrate/effusion/ptx Assessment: 82y M w/pmhx Severe COPD on nocturnal O2 2L; comes to ER 12/06 for complaints of progressive dyspnea on exertion, and then on rest for the past 1 week. Patient states he uses 2L at night but increasing dyspnea requiring O2 in the daytime continuously. In ER, he was tachypneic, tachycardic, placed on NRM then vapotherm. CXR without clear infiltrate but he did have an elevated WBC. Started on empiric Abx coverage, started on therapy for COPD exacerbation suspected. 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 delirium prec. CVS- No further NSVT; no cp/sob. tolerates going to chair, some fatigue on ambulation; cont asa/statin/IV heparin for NSTEMI. cont low dose metoprolol 12.5mg bid (borderline BPs). off NTG IV, on NTG patch, blood pressure tolerating. may trial low dose ACEI after cath. no plan for cath at [facility] given high risk intervention. Repeat TTE 12/10 with LVEF 250-30%, mild improvement but still severe LV dysfunction with multiple WMA. -family and cardiology have agreed to transfer to [facility] for Cath cath for further diagnostics and intervention +/- surgical eval if needed. Resp- on RA, no distress. cont solumedrol 10mg IV daily; eventually back to pred 5mg dialy. Albuterol PRN, spiriva daily. -Baseline COPD but likely a mild exaccerbation worsened with decompensated systolic CHF. ID- afebrile. wbc 15. Nontoxic. Suspect reactive 2/2 to steroid + NSTEMI + CHF exaccerbation. 3 days of ceftriaxone completed. monitor off abx. GI- cardiac diet. h2b proph. Renal- Cr okay. Replete to keep K>4, Mg>2. Making urine, euvolemic appearing. PRN lasix. -s/p CTA with contrast 12/07, monitor for LILLIAN. no mayo. Heme- hg stable. plt okay. IV heparin for NSTEMI. Antiplatelets for NSTEMI. Endo- fingerstick as needed. hba1c 5.8, tsh normal. Musculsk- pressure ulcer prophylaxis. oob to chair Wounds- none Nutrition- cardiac diet DVT prophylaxis: IV heparin GI prophylaxis: pepcid Central Line: no Arterial Line: no Mayo Cathetor: no Disposition: hemodyn stable for transfer to Telemetry bed; plan for transfer to [facility] today for further cardiac workup and cath. Family has agreed. Stable from hemodynamic and respiratory status for transfer from [facility] ICU to cardiac/telemetry monitored bed at [facility]. I have contacted transfer center and they have accepted patient, pending bed availability. Code Status: FULL CODE Jonah Yanez MD Chief Information Security Officer (Electronically Signed)
[2017-12-11] MEDS ORDERED: Tiotropium Respimt 2.5 mcg(NF) 1 PUFF MDI INH SCH (12:00)
[2017-12-11] MEDS: Budesonide NEB* 0.25 MG/2 ML NEB.SOLN INH SCH ×2 (13:27→19:15)
[2017-12-11 18:09] VITALS: BP 129/72
--- NOTE | 2017-12-12 13:20 | DS ---
Discharge Summary Patient Name: Jacques Gaines Date of Admission: 12/06/2017 Date of Discharge: 12/11/2017 Attending: Dr Jonah Yanez (pipe layer helper) Consultants: Dr Deondre Dumont (Cardiology) Admitting Diagnoses: 1) Acute on chronic hypoxic respiratory failure 2) Acute Exaccerbation of COPD 3) NSTEMI Discharge Diagnoses: 1) Acute on chronic hypoxic respiratory failure 2) NSTEMI 3) Pulmonary Edema 4) Acute on chronic Decompensated Severe LV systolic Heart failure 5) Ischemic Cardiomyopathy HPI/Hospital Course: 82y M w/pmhx Severe COPD on nocturnal O2 2L; comes to ER 12/06 for complaints of progressive dyspnea on exertion, and then on rest for the past 1 week. Patient states he uses 2L at night but increasing dyspnea requiring O2 in the daytime continuously. He notes no fever/chills/n/v/diarrhea. No cold/congestion/ rhinorrhea. No cough/sputum production. No sick contacts. Used albuterol more also, no sig change. No LE swelling/cramps. No change in urine output. No dizziness/syncope. No chest pain. In ER, he was tachypneic, tachycardic, placed on NRM then vapotherm. CXR without clear infiltrate but he did have an elevated WBC, no fever. Started on empiric Abx coverage, started on therapy for COPD exacerbation suspected, possible PE and so empiric SQ enoxaparin for tx was started. Over the course of 24 hours, he increased oxygen requirements. He was already started on IV steroids, and a CTA was performed which was negative for pulmonary embolism. A TTE was obtained demonstrated severe LV systolic dysfunction of 20-25% with multiple wall motion abnormalities, no acute valvular abnormality. Troponins were peaked at 1.4. EKG initially showed Anterior Qwaves (similar as 04/2017 EKGs), but after day 2-3 of admission, EKG showed new anterior/inferior inverted Twaves, but with no new symptoms. He was continued on NSTEMI treatment with Aspirin/Statin/IV heparin. Low dose BB introduced, diuretics given with improvement of oxygenation. Given high likelihood of this being NSTEMI with CAD underlying, discussion with patient and had, and they decided after much consideration for pursuing cardiac cath with possibility of intervention and discussion about surgical intervention if needed. Give severe LV dysfunction he was deemed high risk for PCI at [facility] if needed, as well as possibility of needing CABG and risk of more excessive risk of contrast exposure. Family requested for transfer to [facility] for further workup. HE was transferred to [facility] on 12/11 evening via ground transport. Procedures/Imaging: CTA chest, Transthoracic echocardiogram, EKG (see chart) Laboratory/Data: see chart Discharge Medications: IV heparin, Asa 81mg daily, Lipitor 80mg po qhs, solumedrol 10mg iv qdaily, Albuterol PRN nebulizer. Diet: carbohydrate consistent, cardiac diet Activity: bedrest, oob to chair Condition upon discharge: stable Disposition: transfer to [facility] for cardiac cath/cabg/high- risk PCI Code Status: full code Total Discharge time <30minutes Jonah Yanez MD Utilization Review Rn (Electronically Signed)
[2017-12-12] MEDS ORDERED: Atorvastatin* 80 MG TAB PO SCH (21:00)
== END 2017-12-11 19:15 | disposition short-term general hospital (02) | DRG 280 ==
LOC: ED 19:38 → ICU 22:19 → MEDTELE 12-11 18:12
PROVIDERS: ADMIT Internal Medicine; ATTEND Internal Medicine Critical Care Medicine
PROC: 5A09457 Assistance with Respiratory Ventilation, 24-96 Consecutive Hours, Continuous Positive Airway Pressure (ICD-10-PCS; principal; 2017-12-06)
DX: I21.4 Non-ST elevation (NSTEMI) myocardial infarction (principal); J96.21 Acute and chronic respiratory failure with hypoxia; I50.23 Acute on chronic systolic (congestive) heart failure; J44.1 Chronic obstructive pulmonary disease with (acute) exacerbation; I47.2 Ventricular tachycardia; I11.0 Hypertensive heart disease with heart failure; I25.5 Ischemic cardiomyopathy; F17.210 Nicotine dependence, cigarettes, uncomplicated; Z99.81 Dependence on supplemental oxygen; Z79.51 Long term (current) use of inhaled steroids; Z79.899 Other long term (current) drug therapy; Z80.9 Family history of malignant neoplasm, unspecified
CPT/HCPCS: 36415; 71045; 71275; 80048; 80053; 80061; 82550; 82553; 82803; 83036; 83605; 83735; 83880; 84443; 84484; 85025; 85610; 85730; 87040; 87641; 87899; 93005; 93306; 93308; 93970; 94640; 99284; A9270-GY; J0456; J0696; J1200; J1644; J1650; J1940; J2920; J2930; J3475; J7512; Q9967

== ENCOUNTER 2018-03-21 12:48 | Inpatient (IN) | payer MEDICARE ==
--- NOTE | 2018-03-21 12:59 | ED ---
Shortness of Breath - HPI Summary HPI Summary: Pt is an 82 y/o male who presents to the ED c/o SOB. He began having chills, SOB , and a wet cough three days ago. Pt is on 2L O2 NC mostly at night but needed to use oxygen this morning. He denies any fever or congestion. As per family, pt was admitted to the ICU for 5 days in December 2017 for PNA and COPD exacerbation. His laundry agent is concerned about the pts heart, as he was recently diagnosed with arrhythmia. Pt is a former smoker; he smoked .5 ppd for 70 years and quit in November 2017. He had this seasons flu shot. Pt is accompanied by his family. He takes blood thinners and daily ASA. - History of Current Complaint Chief Complaint: EDShortnessOfBreath Time Seen by Provider: 03/21/18 12:53 Hx Obtained From: Patient, Family/Printer Apprentice - Family Onset/Duration: Gradual Onset, Lasting Days - 3, Worse Since Timing: Constant Dyspnea At: Rest Aggrevating Factors: Nothing Alleviating Factors: Oxygen Associated Signs & Symptoms: Cough (Nonproductive), Chills Related History: Similar Episode - admitted to ICU December 2017 - Allergy/Home Medications Allergies/Adverse Reactions: Allergies Allergy/AdvReac Type Severity Reaction Status Date / Time Iodinated Contrast- Oral and Allergy Mild Hives Verified 03/21/18 13:57 IV Dye Home Medications: Home Medications Aspirin EC TAB* [Ecotrin EC Low Dose 81 MG*] 81 mg PO DAILY 03/21/18 [History Confirmed 03/21/18] Atorvastatin* [Lipitor 10 MG*] 10 mg PO DAILY 03/21/18 [History Confirmed ] Iprat-Albut 0.5-3(2.5) mg/3 ml 1 vial INH QID 03/21/18 [History Confirmed ] Metoprolol Succinate 12.5 mg PO BID 03/21/18 [History Confirmed 03/21/18] Nitroglycerin TAB 0.4 MG* 1 tab PO Q5M PRN 03/21/18 [History Confirmed 03/21/18] PMH/Surg Hx/FS Hx/Imm Hx Endocrine/Hematology History: Denies: Hx Anticoagulant Therapy, Hx Blood Disorders, Hx Blood Transfusions, Hx Bone Marrow Disease, Hx Diabetes, Hx Systemic Lupus Erythematosus, Hx Sickle Cell Disease, Hx Thyroid Disease, Hx Anemia, Hx Unexplained Bleeding Cardiovascular History: Reports: Other Cardiovascular Problems/Disorders - Arythmia Denies: Hx Aneurysm, Hx Angina, Hx Angioplasty, Hx Auto Implanted Cardiovert Defib, Hx Cardiac Arrest, Hx Congenital Heart Disease, Hx Congestive Heart Failure, Hx Coronary Artery Disease, Hx Deep Vein Thrombosis, Hx Embolism, Hx Hypotension, Hx Hypertension, Hx Pacemaker/ICD, Hx Rheumatic Fever, Hx Syncope, Hx Valvular Heart Disease Respiratory History: Reports: Hx Chronic Obstructive Pulmonary Disease (COPD) Denies: Hx Asthma, Hx Lung Cancer, Hx Pneumonia, Hx Pulmonary Embolism, Hx Seasonal Allergies GI History: Denies: Hx Crohn's Disease, Hx Diverticulosis, Hx Gastroesophageal Reflux Disease, Hx Irritable Bowel, Hx Obstructive Bowel, Hx Ulcer History: Denies: Hx Benign Prostatic Hyperplasia, Hx Dialysis, Hx Kidney Stones Musculoskeletal History: Denies: Hx Arthritis, Hx Bursitis, Hx Congenital Bone Abnormalities, Hx Fibromyalgia, Hx Gout, Hx Osteoporosis, Hx Scoliosis, Hx Tendonitis Sensory History: Reports: Hx Contacts or Glasses Denies: Hx Cataracts, Hx Eye Injury, Hx Eye Prosthesis, Hx Glaucoma, Hx Macular Degeneration, Hx Hearing Aid, Hx Hearing Problem, Other Sensory Impairments Opthamlomology History: Reports: Hx Contacts or Glasses Denies: Hx Cataracts, Hx Eye Injury, Hx Eye Prosthesis, Hx Glaucoma, Hx Macular Degeneration, Other Sensory Impairments Neurological History: Denies: Hx Dementia, Hx Developmental Delay, Hx Headaches, Hx Migraine, Hx Nerve Disease, Hx Seizures, Hx Spinal Cord Injury, Hx Transient Ischemic Attacks (TIA), Other Neuro Impairments/Disorders Psychiatric History: Denies: Hx Anxiety, Hx Attention Deficit Hyperactivity Disorder, Hx Autism, Hx Eating Disorder, Hx Oppositional [place] Disorder, Hx Depression, Hx Panic Disorder, Hx Post Traumatic Stress Disorder, Hx Inpatient Treatment, Hx Schizophrenia, Hx Bipolar Disorder, Hx Suicide Attempt, Hx of Violent Episodes Against Others - Cancer History Hx Chemotherapy: No Hx Radiation Therapy: No Hx Palliative Cancer Treatment: No - Surgical History Hx Anesthesia Reactions: No Infectious Disease History: No Infectious Disease History: Denies: Hx Clostridium Difficile, Hx Hepatitis, Hx of Known/Suspected MRSA, Hx Shingles, Hx Tuberculosis, Hx Known/Suspected VRE, Hx Known/Suspected VRSA, Traveled Outside the [place] in Last 30 Days - Family History Known Family History: Positive: Other - CA Negative: Hypertension, Diabetes - Social History Alcohol Use: Occasionally Alcohol Amount: 1-2 A DAY Hx Substance Use: No Substance Use Type: Reports: None Hx Tobacco Use: Yes Smoking Status (MU): Former Smoker Amount Used/How Often: 10 CIGS DAILY X 63 YRS. Have You Smoked in the Last Year: Yes Review of Systems Positive: Chills. Negative: Fever Negative: Nasal Discharge Positive: Shortness Of Breath, Cough All Other Systems Reviewed And Are Negative: Yes Physical Exam - Summary Physical Exam Summary: Appearance: Well appearing, mild pain distress, fine tremor Skin: warm, dry, reflects adequate perfusion Head/face: normal Eyes: EOMI, KIERA ENT: mucous membranes moist Neck: supple, non-tender, no JVD Respiratory: breath sounds diminished, no wheezes, fine crackles in bases, tachypneic, shallow breathing Cardiovascular: tachycardic but regular rhythm, pulses symmetrical Abdomen: non-tender, soft Bowel Sounds: present Musculoskeletal: normal, strength/ROM intact Neuro: normal, sensory motor intact, A&Ox3 Triage Information Reviewed: Yes Vital Signs On Initial Exam: Initial Vitals Temp Pulse Resp BP Pulse Ox 98.7 F 123 34 142/99 91 03/21/18 12:50 03/21/18 12:50 03/21/18 12:50 03/21/18 12:50 03/21/18 12:50 Vital Signs Reviewed: Yes Diagnostics - Vital Signs Vital Signs Temp Pulse Resp BP Pulse Ox 03/21/18 12:50 98.7 F 123 34 142/99 91 - Laboratory Result Diagrams: 03/21/18 13:40 03/21/18 13:40 Lab Statement: Any lab studies that have been ordered have been reviewed, and results considered in the medical decision making process. - Radiology CXR Radiology Interpretation Completed By: Radiologist Summary of Radiographic Findings: COPD. ED physician reviewed radiology report. - EKG 13:10 Cardiac Rate: Tachycardia - [address] Segment: Non-Specific Ectopy: PACs Summary of EKG Findings: RAD, poor R wave progression Course/Dx - Course Course Of Treatment: Nurse's notes reviewed. Patient with history of COPD with worsening dyspnea and hypoxia. Treated with breathing treatments, steroids and antibiotics here. No infiltrate on x-ray. Improved with breathing treatments, increased nasal cannula oxygen. Admit for further. - Diagnoses Differential Diagnosis/HQI/PQRI: Positive: CHF, COPD Exacerbation, Pneumonia, Pulmonary Embolism, Pulmonary Edema Provider Diagnoses: COPD exacerbation, Hypoxia - Physician Notifications Discussed Care of Patient With: Honey Garg Time Discussed With Above Provider: 15:12 Instructed by Provider To: Admit As Inpatient - Critical Care Time Critical Care Time: 30-74 min - CCT is EXCLUSIVE of separately billable procedures. Discharge - Sign-Out/Discharge Documenting (check all that apply): Patient Departure - Admit Patient Received Moderate/Deep Sedation with Procedure: No - Discharge Plan Condition: Stable Disposition: ADMITTED TO [facility] Referrals: Alondra Duncan MD [Primary Care Provider] - - Billing Disposition and Condition Condition: STABLE Disposition: Admitted to [facility] - Attestation Statements Document Initiated by Marcin: Yes Documenting Scribe: Ambar Palacios Provider For Whom Marcin is Documenting (Include Credential): Domo Maurer MD Scribe Attestation: Ambar Donahue, scribed for Domo Maurer MD on 03/21/18 at 1718. Scribe Documentation Reviewed: Yes Provider Attestation: The documentation as recorded by the Ambar ventura accurately reflects the service I personally performed and the decisions made by , Domo Maurer MD Status of Scribe Document: Viewed
[2018-03-21] MEDS ORDERED: Levofloxacin 750 MG IVPREMIX(* 750 MG/150 ML BAG IVPB ONE (13:02)
[2018-03-21] MEDS ORDERED: methylPREDNISolone 125 MG* 2 ML VIAL IV ONE (13:02)
--- OUTSIDE RECORDS SUMMARY | 2018-03-21 13:07 | XMS REPORT | Continuity of Care Document ---
:1935 External Reference #:[id number] Author Name Catalino Trejo Care Team Providers Name Role Phone Kylah Redd MD Primary Care Physician Unavailable Payers Type Date Identification Numbers Payment Provider Subscriber Effective: Policy Number: [id number] [employer] Today Jacques Hawkins 2014 Options Expires: 2017 PayID: [id number] [address] [address] Attn: [place] [address] Expires: 2017 Policy Number: [id number] Medicare Jacques Hawkins PayID: [id number] [address] [place] [address] Expires: 2014 Policy Number: [id number] Today[employer] Option Of [place] Jacques Hawkins PayID: [id number] [address] [address] [place] [address] Effective: 2017 Policy Number: [id number] [employer] Jacques Hawkins PayID: [id number] [address] [place] [address] Advance Directives Description No Information Available Problems Description No Information Family History Date Family Member(s) Problem(s) Comments Father due to Cancer () Mother due to Cancer () Siblings 7 All passed from Cancer, 1 brother from Lung Cancer Social History Type Date Description Comments Sex Unknown Marital Status Lives With Occupation Retired Tobacco Use Start: Unknown End: Former Cigarette Smoker Smoked 3/4 ppd for Unknown 60 years ETOH Use Currently consumes Small glass of alcohol Liquor a night Recreational Drug Use Denies Drug Use Tobacco Use Start: Unknown End: Patient is a former Quit 3 week ago as Unknown smoker of 11/14/18 Smoking Status Reviewed: 02/27/18 Patient is a former Quit 3 week ago as smoker of 12/20/17 Exercise Type/Frequency Exercises rarely Allergies, Adverse Reactions, Alerts Date Description Reaction Status Severity Comments 12/20/2017 Iodinated Diagnostic Agents Rash Active Contrast Dye 05/04/2017 NKDA Inactive Medications Medication Date Status Form Strength Qnty SIG Indications Ordering Provider Toprol XL 12/20 Active Tablets ER 25mg 60tab 1 tab each in I42.9 Deondre 24HR s the morning F. and 1/2 tab Mauser, by mouth each M.D. at night Duoneb 05/04 Active Solution 0.5-2.5(3 540ml 1 unit nebl J44.9 [facility] )mg/3ML every 6 hours [place], as needed Budesonide Active Suspension 0.5mg/2ML via nebulizer Unknown /0000 twice a day Stiolto Active Aerosol 2.5-2.5mc 2 puff daily Unknown Respimat /0000 g/Act Oxygen Active Misc please use o2 Unknown /0000 at 2l/min at night and with exertion Aspir-[address] 81mg 1 by mouth Unknown /0000 every day Atorvastatin Active Tablets 40mg 90tab 2 by mouth Galina SKristy Calcium /0000 s every evening Octaviano N.P. Ipratropium Active Solution 0.5-2.5(3 Take 3 mls by Unknown [place] / )mg/3ML nebulization rol Sulfate three times daily Prednisone Active Tablets 5mg 1 by mouth Unknown /0000 every day Levalbuterol Hx Nebulizer 0.63mg/3M tid Unknown HCL /0000 L - 12/19 Proventil HFA Hx Aerosol 108(90Bas inhale two Unknown /0000 e) puffs by - mcg/Act mouth four 02/27 times a day /2018 as needed for wheezing Carvedilol Hx Tablets 3.125mg 1 by mouth Unknown /0000 twice a day - with meals 12/20 Losartan Hx Tablets 25mg Take 0.5 tabs Unknown Potassium /0000 by mouth - daily 12/20 Albuterol 00 Hx Tablets 2mg inhale two Unknown / puffs by - mouth four 02/06 times a day /2018 as needed for wheezing Immunizations Description No Information Available Vital Signs Date Vital Result Comment 02/27/2018 10:54am Height 67 inches 5'7" Weight 114.00 lb Heart Rate 74 /min BP Systolic Sitting 112 mmHg BP Diastolic Sitting 62 mmHg O2 % BldC Oximetry 94 % BMI (Body Mass Index) 17.9 kg/m2 Ejection Fraction 60-65% 01/19/18 12/20/2017 9:48am Height 67 inches 5'7" Weight 115.25 lb Heart Rate 64 /min BP Systolic 96 mmHg Rue BP Diastolic 60 mmHg Rue BMI (Body Mass Index) 18.0 kg/m2 Ejection Fraction 25-30% 12/10/17 05/04/2017 2:44pm Height 67 inches 5'7" Weight 114.00 lb Heart Rate 92 /min BP Systolic Sitting 112 mmHg BP Diastolic Sitting 70 mmHg Respiratory Rate 14 /min O2 % BldC Oximetry 96 % BMI (Body Mass Index) 17.9 kg/m2 Neck Circumference in inches 14.5 Results Test Date Facility Test Result H/L Range Note Lipid Panel - 01/19/2018 [facility] Creatine 24 U/L N 10-[address] Kinase(CK) [place] [address] [phone] Comp Metabolic 01/19/2018 [facility] Sodium 144 mmol/L N 135- [address] [place] [address] [phone] Potassium 4.9 mmol/L N 3.5-5.0 Chloride 104 mmol/L N 101-111 Co2 Carbon Dioxide 29 mmol/L N 22-32 Anion Gap 11 mmol/L N 2-11 Glucose 91 mg/dL N 70-100 Blood Urea Nitrogen 20 mg/dL N 6-24 Creatinine 1.22 mg/dL High 0.67-1.17 BUN/Creatinine Ratio 16.4 N 8-20 Calcium 9.9 mg/dL N 8.6-10.3 Total Protein 6.8 g/dL N 6.4-8.9 Albumin 4.3 g/dL N 3.2-5.2 Globulin 2.5 g/dL N 2-4 Albumin/Globulin Ratio 1.7 N 1-3 Total Bilirubin 0.50 mg/dL N 0.2-1.0 Alkaline Phosphatase 125 U/L High 34-104 Alt 21 U/L N 7-52 Ast 17 U/L N 13-39 Egfr Non- 57.0 >60 Egfr 69.0 >60 2 Lipid Profile 01/19/2018 [facility] Triglycerides 98 mg/dL 3 (Trig/Chol/HDL) [address] [place] [address] [phone] Cholesterol 184 mg/dL 4 HDL Cholesterol 64.6 mg/dL 5 LDL Cholesterol 100 mg/dL 6 Order 05/04/2017 Hose Turner In-House 6 Minute Walk <pending> 1 FASTING in 6 weeks. Copy Result to: KYLAH REDD ([id number]) 2 Because ethnic data is not always readily [...] 15-29 5 Kidney failure <15 (or dialysis) 3 Desirable: <150 Borderline High: 150-199 High: 200-499 Very High: >500 4 Desirable: <200 Borderline High: 200-239 High: >239 5 Low: <40 Desirable: 40-60 High: >60 6 Desirable: <100 Near Optimal: 100-129 Borderline High: 130-159 High: 160-189 Very High: >189 Procedures Date Code Description Status 02/27/2018 84060 EKG Tracing & Interpretation Completed 01/19/2018 23442 ECHO Transthoracic, Real-Time 2D With Doppler And Color Completed Flow 01/19/2018 35809 ECHO Transthoracic, Real-Time 2D With Doppler And Color Completed Flow 12/20/2017 49125 EKG Tracing & Interpretation Completed 12/10/2017 74408 Echocardiogram, Limited Study Completed 12/10/2017 52702 EKG, Interpretation Only Completed 12/10/2017 62269 EKG, Interpretation Only Completed 12/09/2017 76140 EKG, Interpretation Only Completed 12/08/2017 27741 EKG, Interpretation Only Completed 12/07/2017 08084 ECHO Transthorasic Realtime 2D W Doppler & Color Flow Hosp Completed 12/07/2017 73530 EKG, Interpretation Only Completed 12/06/2017 76077 EKG, Interpretation Only Completed 05/04/2017 47816 [facility] Measurement Heart Rate, Completed Oximetry 05/27/2014 97468 Spirometry Incl Graphic Record Completed 09/23/2010 95268 ECHO Transthoracic, Real-Time 2D With Doppler And Color Completed Flow Encounters Type Date Location Provider Dx Diagnosis Office Visit 12/20/2017 [facility] Galina Brumfield, I42.9 Cardiomyopathy, 10:00a N.P. unspecified J44.1 Chronic obstructive pulmonary disease w (acute) exacerbation I25.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 coronary artery w/o ang pctrs E78.5 Hyperlipidemia, unspecified Office Visit 12/11/2017 10:33a [facility] Jonah Yanez, J96.21 Acute and chronic MD respiratory failure with hypoxia J44.1 Chronic obstructive pulmonary disease w (acute) exacerbation I21.4 Non-St elevation (Nstemi) myocardial infarction I50.23 Acute on chronic systolic (congestive) heart failure Office Visit 12/10/2017 12:24p [facility] Deondre Godinez I21.4 Non-St elevation Luz Dumont (Nstemi) myocardial infarction I50.9 Heart failure, unspecified I25.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 coronary artery w/o ang pctrs Office Visit 12/10/2017 10:33a Intensivists Jonah Yanez MD I21.4 Non- St elevation (Nstemi) myocardial infarction I50.23 Acute on chronic systolic (congestive) heart failure I25.5 Ischemic cardiomyopathy Office Visit 12/09/2017 [facility] Deondre Godinez I25.5 Ischemic 10:33a Cardiology Luz Dumont cardiomyopathy I21.4 Non-St elevation (Nstemi) myocardial infarction J44.1 Chronic obstructive pulmonary disease w (acute) exacerbation Office Visit 12/09/2017 10:33a [facility] Jaylen Barraza.21 Acute and chronic MD respiratory failure with hypoxia I50.23 Acute on chronic systolic (congestive) heart failure I21.4 Non-St elevation (Nstemi) myocardial infarction J44.1 Chronic obstructive pulmonary disease w (acute) exacerbation Office Visit 12/08/2017 4:02p [facility] Deondre Godinez J44.1 Chronic Luz Dumont obstructive pulmonary disease w (acute) exacerbation J90 Pleural effusion, not elsewhere classified J81.0 Acute pulmonary edema I21.4 Non-St elevation (Nstemi) myocardial infarction R94.31 Abnormal electrocardiogram [ECG] [EKG] Office Visit 12/08/2017 10:32a [facility] Jaylen Barraza.21 Acute and chronic MD respiratory failure with hypoxia I50.23 Acute on chronic systolic (congestive) heart failure I21.4 Non-St elevation (Nstemi) myocardial infarction J44.1 Chronic obstructive pulmonary disease w (acute) exacerbation Office Visit 12/07/2017 10:32a [facility] Jaylen Barraza.21 Acute and chronic MD respiratory failure with hypoxia J44.1 Chronic obstructive pulmonary disease w (acute) exacerbation I21.4 Non-St elevation (Nstemi) myocardial infarction Office Visit 12/06/2017 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 dependence, Hospitalists cigarettes, uncomplicated J44.1 Chronic obstructive pulmonary disease w (acute) exacerbation R09.02 Hypoxemia R79.89 Other specified abnormal findings of blood chemistry Office Visit 05/04/2017 3:00p Pulmonology And Kamla J44.9 [facility] [place] obstructive [facility]ose Turner pulmonary disease, unspecified R09.02 Hypoxemia [facility]12[facility] A41.9 Sepsis, 3:05p Assoc,rachel Taylor, FUNDRAISING SPECIALIST unspecified Hospitalists organism J11.1 Flu due to unidentified influenza virus w oth resp manifest J44.1 Chronic obstructive pulmonary disease w (acute) exacerbation Office Visit 04/11/2017 [facility] A41.9 Sepsis, 3:04p Assoc,rachel Brandon, FUNDRAISING SPECIALIST unspecified Hospitalists organism J11.1 Flu due to unidentified influenza virus w oth resp manifest J44.1 Chronic obstructive pulmonary disease w (acute) exacerbation Office Visit 04/10/2017 [facility] Isela Siegel A41.9 Sepsis, 3:03p Assoc,pc Brandon, FUNDRAISING SPECIALIST unspecified Hospitalists organism J11.1 Flu due to unidentified influenza virus w oth resp manifest J44.1 Chronic obstructive pulmonary disease w (acute) exacerbation Office Visit 04/09/2017 [facility] Modesta A41.9 Sepsis, 2:55p Assoc,pc Rebeca, FUNDRAISING SPECIALIST unspecified Hospitalists organism J11.1 Flu due to unidentified influenza virus w oth resp manifest J44.1 Chronic obstructive pulmonary disease w (acute) exacerbation Office Visit 04/08/2017 2:54p [facility] Hafsa Barbosa, A41.9 Sepsis, Assoc,pc N.P. unspecified Hospitalists organism J11.1 Flu due to unidentified influenza virus w oth resp manifest J44.1 Chronic obstructive pulmonary disease w (acute) exacerbation Plan of Treatment 02/27/2018 - Deondre Dumont M.D.I42.9 Cardiomyopathy, oaviszctwovM64.10 Atherosclerotic heart disease [place] coronary artery withE78.5 Hyperlipidemia , eotlkrsytojY98.2 PalpitationsNew Orders:Holter Monitor, Scheduled: R06.00 Dyspnea, unspecifiedFollow up:ov Galina 2 m ov [facility] 8 m
--- OUTSIDE RECORDS SUMMARY | 2018-03-21 13:07 | XMS REPORT | Continuity of Care Document ---
:1935 External Reference #:[id number] Author Name Hortensia Salmeron Care Team Providers Name Role Phone Kylah Redd MD Primary Care Physician Unavailable Payers Type Date Identification Numbers Payment Provider Subscriber Effective: Policy Number: [id number] [employer] Jacques Hawkins 2014 Options Expires: 2017 PayID: [id number] [address] [address] Attn: [place] [address] Expires: 2017 Policy Number: [id number] Medicare Jacques Hawkins PayID: [id number] [address] [place] [address] Expires: 2014 Policy Number: [id number] Today[place] Option Of [place] Jacques Hawkins PayID: [id number] [address] [address] [place] [address] Effective: 2017 Policy Number: [id number] [employer] Jacques Hawkins PayID: [id number] [address] [place] [address] Advance Directives Description No Information Available Problems [...] 3 week ago as Unknown smoker of 12/20/17 Smoking Status Reviewed: 03/07/18 Patient is a former Quit 3 week ago as smoker of 12/20/17 Exercise Type/Frequency Exercises rarely Allergies, Adverse Reactions, Alerts Date Description Reaction Status Severity Comments 12/20/2017 Iodinated Diagnostic Agents Rash Active Contrast Dye 05/04/2017 NKDA Inactive Medications Medication Date Status Form Strength Qnty SIG Indications Ordering Provider Atorvastatin 03/06 Active Tablets 10mg 90tab 1 by mouth Deondre s every day FKristy Dumont M.D. Nitroglycerin 03/01 Active Tablets Sub 0.4mg 25tab 1 sl q5mins s x3 as needed F. for chest subha Dumont M.D. Toprol XL 12/20 Active Tablets ER 25mg 60tab 1/2 tab each I42.9 24HR s in the F. morning and Mauser, 1/2 tab by Luz mouth each at night Duoneb 05/04 Active Solution 0.5-2.5(3 540ml 1 unit nebl J44.9 Kamla /2018 )mg/3ML every 6 hours Sel[place], as needed Budesonide Active Suspension 0.5mg/2ML via nebulizer Unknown /0000 twice a day Stiolto Active Aerosol 2.5-2.5mc 2 puff daily Unknown Respimat /0000 g/Act Oxygen Active Misc please use o2 Unknown /0000 at 2l/min at night and with exertion Aspir-[address] 81mg 1 by mouth Unknown /0000 every day Ipratropium Active Solution 0.5-2.5(3 Take 3 mls by Unknown [place] 0000 )mg/3ML nebulization rol Sulfate three times daily Prednisone Active Tablets 5mg 1 by mouth Unknown /0000 every day Levalbuterol Hx Nebulizer 0.63mg/3M tid Unknown HCL /0000 L - 12/19 Proventil HFA Hx Aerosol 108(90Bas inhale two Unknown /0000 e) puffs by - mcg/Act mouth four 02/27 times a day as needed for wheezing Atorvastatin Hx Tablets 40mg 90tab 2 by mouth Galina S. Calcium /0000 s every evening Caden Brumfield N.PKristy 03/06 Carvedilol 00 Hx Tablets 3.125mg 1 by mouth Unknown /0000 twice a day - with meals 12/20 Losartan Hx Tablets 25mg Take 0.5 tabs Unknown Potassium /0000 by mouth - daily 12/20 Albuterol Hx Tablets 2mg inhale two Unknown Sulfate /0000 puffs by - mouth four 02/06 times a day as needed for wheezing Immunizations Description No Information Available Vital Signs Date Vital Result Comment 03/07/2018 10:09am Height 67 inches 5'7" Weight 113.25 lb with shoes Heart Rate 72 /min BP Systolic Sitting 116 mmHg BP Diastolic Sitting 80 mmHg BMI (Body Mass Index) 17.7 kg/m2 02/27/2018 10:54am Height 67 inches 5'7" Weight [...] Date Facility Test Result H/L Range Note Laboratory test 03/05/2018 [facility] Magnesium 1.9 mg/dL N 1.9-2.7 [address] [place] [address] [phone] B-Type Natriuretic Peptide BNP 157 pg/mL High <=100 2 TSH (Thyroid Stim Horm) 0.73 mcIU/mL N 0.34-5.60 3 Lipid Profile 03/05/2018 [facility] Triglycerides 107 mg/dL 4 (Trig/Chol/HDL) [address] [place], [place] [id number] [phone] Cholesterol 143 mg/dL 5 HDL Cholesterol 61.9 mg/dL 6 LDL Cholesterol 60 mg/dL 7 Comp Metabolic Panel 03/05/2018 [facility] Sodium 143 mmol/L N 135-[address] [place], [place] [id number] [phone] Potassium 4.3 mmol/L N 3.5-5.0 Chloride 103 mmol/L N 101-111 Co2 Carbon Dioxide 31 mmol/L N 22-32 Anion Gap 9 mmol/L N 2-11 Glucose 102 mg/dL High 70-100 Blood Urea Nitrogen 15 mg/dL N 6-24 Creatinine 1.13 mg/dL N 0.67-1.17 BUN/Creatinine Ratio 13.3 N 8-20 Calcium 9.9 mg/dL N 8.6-10.3 Total Protein 6.9 g/dL N 6.4-8.9 Albumin 4.3 g/dL N 3.2-5.2 Globulin 2.6 g/dL N 2-4 Albumin/Globulin Ratio 1.7 N 1-3 Total Bilirubin 0.60 mg/dL N 0.2-1.0 Alkaline Phosphatase 208 U/L High 34-104 Alt 98 U/L High 7-52 Ast 61 U/L High 13-39 Egfr Non- 62.3 >60 Egfr 75.4 >60 8 Lipid Panel 03/05/2018 [facility] Creatine 45 U/L N 10-223 9 - JFM [address] [place], [place] [id number] [phone] CBC Auto 03/05/2018 [facility] White Blood 18.9 High 3.5-10.[address] Count 10^3/[place] [address] [phone] Red Blood Count 4.60 10^6/uL N 4.00-5.40 Hemoglobin 14.4 g/dL N 14.0-18.0 Hematocrit 44 % N 42-52 Mean Corpuscular Volume 95 fL High 80-94 Mean Corpuscular Hemoglobin 31 pg N 27-31 Mean Corpuscular HGB Conc 33 g/dL N 31-36 Red Cell Distribution Width 14 % N 10.5-15 Platelet Count 316 10^3/uL N 150-450 Mean Platelet Volume 8.3 fL N 7.4-10.4 Abs Neutrophils 15.6 10^3/uL High 1.5-7.7 Abs Lymphocytes 1.7 10^3/uL N 1.0-4.8 Abs Monocytes 0.8 10^3/uL N 0-0.8 Abs Eosinophils 0.6 10^3/uL N 0-0.6 Abs Basophils 0.1 10^3/uL N 0-0.2 Abs Nucleated RBC 0 10^3/uL Granulocyte % 82.7 % Lymphocyte % 9.1 % Monocyte % 4.4 % Eosinophil % 3.2 % Basophil % 0.6 % Nucleated Red Blood Cells % 0 Comp Metabolic Panel 01/19/2018 [facility] Sodium 144 mmol/L N 135-[address] [place] [address] [phone] Potassium 4.9 mmol/L N 3.5-5.0 Chloride 104 [...] Egfr Non- 57.0 >60 Egfr 69.0 >60 10 Lipid Profile 01/19/2018 [facility] Triglycerides 98 mg/dL 11 (Trig/Chol/HDL) [address] [place] [address] [phone] Cholesterol 184 mg/dL 12 HDL Cholesterol 64.6 mg/dL 13 LDL Cholesterol 100 mg/dL 14 Lipid Panel - 01/19/2018 [facility] Creatine 24 U/L N 10-[address] Kinase(CK) [place] [address] [phone] Order 05/04/2017 [facility] [facility] Apprentice In-House 6 Minute Walk <pending> 1 FASTING Copy Result to: KYLAH REDD ([id number]) 2 FASTING Copy Result to: KYLAH REDD ([id number]) 3 FASTING Copy Result to: KYLAH REDD ([id number]) 4 Desirable: <150 Borderline High: 150-199 High: 200-499 Very High: >500 5 Desirable: <200 Borderline High: 200-239 High: >239 6 Low: <40 Desirable: 40-60 High: >60 7 Desirable: <100 Near Optimal: 100-129 Borderline High: 130-159 High: 160-189 Very High: >189 8 Because ethnic data is not always readily [...] 15-29 5 Kidney failure <15 (or dialysis) 9 FASTING Copy Result to: KYLAH REDD ([id number]) 10 Because ethnic data is not always readily [...] 15-29 5 Kidney failure <15 (or dialysis) 11 Desirable: <150 Borderline High: 150-199 High: 200-499 Very High: >500 12 Desirable: <200 Borderline High: 200-239 High: >239 13 Low: <40 Desirable: 40-60 High: >60 14 Desirable: <100 Near Optimal: 100-129 Borderline High: 130-159 High: 160-189 Very High: >189 15 FASTING in 6 weeks. Copy Result to: KYLAH REDD ([id number]) Procedures Date Code Description Status 02/27/2018 11505 EKG Tracing & Interpretation Completed 01/19/2018 07839 ECHO Transthoracic, Real-Time 2D With Doppler And Color Completed Flow 01/19/2018 07213 ECHO Transthoracic, Real-Time 2D With Doppler And Color Completed Flow 12/20/2017 14481 EKG Tracing & Interpretation Completed 12/10/2017 11142 Echocardiogram, Limited Study Completed 12/10/2017 84819 EKG, Interpretation Only Completed 12/10/2017 06857 EKG, Interpretation Only Completed 12/09/2017 96978 EKG, Interpretation Only Completed 12/08/2017 77584 EKG, Interpretation Only Completed 12/07/2017 28657 ECHO Transthorasic Realtime 2D W Doppler & Color Flow Hosp Completed 12/07/2017 49600 EKG, Interpretation Only Completed 12/06/2017 83160 EKG, Interpretation Only Completed 05/04/2017 27268 [facility]monary [facility] Measurement Heart Rate, Completed Oximetry 05/27/2014 23055 Spirometry Incl Graphic Record Completed 09/23/2010 03957 ECHO Transthoracic, Real-Time 2D With Doppler And Color Completed Flow Encounters Type Date Location Provider Dx Diagnosis Office Visit 02/27/2018 [facility] Deondre Donahue42.9 Cardiomyopathy , 11:00a Luz Dumont unspecified I25.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[place] coronary artery w/o ang pctrs E78.5 Hyperlipidemia, unspecified R00.2 Palpitations R06.00 Dyspnea, unspecified Office Visit 12/20/2017 [facility] Galina Donahue42.9 Cardiomyopathy, 10:00a Cardiology Octaviano N.PKristy unspecified J44.1 Chronic obstructive pulmonary disease w (acute) exacerbation I25.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[place] [facility] E78.5 Hyperlipidemia, unspecified Office Visit 12/11/2017 10:33a [facility] Mohsen Barraza96.21 Acute and chronic MD respiratory failure with hypoxia J44.1 Chronic obstructive pulmonary disease w (acute) exacerbation I21.4 Non-St elevation (Nstemi) myocardial infarction I50.23 Acute on chronic systolic (congestive) heart failure Office Visit 12/10/2017 12:24p [facility] Deondre Godinez I21.4 Non-St elevation Luz Dumont (Nstemi) myocardial infarction I50.9 Heart failure, unspecified I25.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k[place] coronary artery [facility] Office Visit 12/10/2017 10:33a Intensivists Jonah Yanez MD I21.4 Non- St elevation (Nstemi) myocardial infarction I50.23 Acute on chronic systolic (congestive) heart failure I25.5 Ischemic cardiomyopathy Office Visit 12/09/2017 [facility] Deondre Godinez I25.5 Ischemic 10:33a Cardiology Luz Dumont cardiomyopathy I21.4 Non-St elevation (Nstemi) myocardial infarction J44.1 Chronic obstructive pulmonary disease w (acute) exacerbation Office Visit 12/09/2017 10:33a [facility] Mohsen Barraza96.21 Acute and chronic MD respiratory failure with hypoxia I50.23 Acute on chronic systolic (congestive) heart failure I21.4 Non-St elevation (Nstemi) myocardial infarction J44.1 Chronic obstructive pulmonary disease w (acute) exacerbation Office Visit 12/08/2017 4:02p [facility] Deondre Godinez J44.1 Chronic Luz Dumont [...] (acute) exacerbation Office Visit 12/07/2017 10:32a Intensiv[facility] Jonah Yanez, J96.21 Acute and chronic MD respiratory failure with hypoxia J44.1 Chronic obstructive pulmonary disease w (acute) exacerbation I21.4 Non-St elevation (Nstemi) myocardial infarction Office Visit 12/06/2017 [facility] Chidi 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 unspecified Hospitalists organism J11.1 Flu due to unidentified influenza virus w oth resp manifest J44.1 Chronic obstructive pulmonary disease w (acute) exacerbation Office Visit 04/11/2017 [facility] A41.9 Sepsis, 3:04p Assoc,rachel Taylor, BOOKKEEPING SERVICE SALES AGENT unspecified Hospitalists organism J11.1 Flu due to unidentified influenza virus w oth resp manifest J44.1 Chronic obstructive pulmonary disease w (acute) exacerbation Office Visit 04/10/2017 [facility] A41.9 Sepsis, 3:03p Assoc,rachel Taylor, BOOKKEEPING SERVICE SALES AGENT unspecified Hospitalists organism J11.1 Flu due to unidentified influenza virus w oth resp manifest J44.1 Chronic obstructive pulmonary disease w (acute) exacerbation Office Visit 04/09/2017 [facility] Modesta A41.9 Sepsis, 2:55p Assoc,rachel Jose, BOOKKEEPING SERVICE SALES AGENT unspecified Hospitalists organism J11.1 Flu due to unidentified influenza virus w oth resp manifest J44.1 Chronic obstructive pulmonary disease w (acute) exacerbation Office Visit 04/08/2017 2:54p [facility] Hafsa Barbosa, A41.9 Sepsis, Assoc,pc N.P. unspecified Hospitalists organism J11.1 Flu due to unidentified influenza virus w oth resp manifest J44.1 Chronic obstructive pulmonary disease w (acute) exacerbation Plan of Treatment 03/07/2018 - [facility] Brumfield N.P.I47.1 Supraventricular tachycardiaComments:You had some fast heart rhythms coming from the top part of your heart. 12 beatsFollow up:f/u after event monitor 04/2018 [facility] print lab order Recommendations:Continue 1/2 tab toprol 2x daily.I25.10 Atherosclerotic heart disease of kiana coronary artery withE78.5 Hyperlipidemia, unspecifiedRecommendations:Continue lipitor 10mg daily Have labs drawn in 1 month.R06.00 Dyspnea, unspecifiedNew Orders:Overnight Oximetry, Scheduled: 03/13Recommendations:Wear oxygen sleeping and with naps.R55 Syncope and collapseNew Orders:[facility], Ordered: Comments:Could be related to low blood pressure or fast heart rhythms.Recommendations:Try to stay well hydrated and get up slowly.
[2018-03-21] MEDS ORDERED: Albuterol/Ipratropium NEB.SOL* Albuterol 2.5 MG/Ipratropium 0.5 MG 3 ML INH ONE (13:24)
[2018-03-21 13:36] LABS: Influenza A Molecular NEGATIVE (Negative); Influenza B Molecular NEGATIVE (Negative)
[2018-03-21 13:47] LABS: ABS Basophils 0.1 10^3/ul (0-0.2); ABS Eosinophils 0 10^3/ul (0-0.6); ABS Lymphocytes 0.8 10^3/ul (1.0-4.8); ABS Monocytes 0.8 10^3/ul (0-0.8); ABS Neutrophils 10.9 10^3/ul (1.5-7.7); ABS Nucleated RBC 0 10^3/ul; Eosinophil % 0.2 %; Hematocrit 40 % (42-52); Hemoglobin 13.3 g/dl (14.0-18.0); Lymphocyte % 6.1 %; Mean Corpuscular HGB Conc 33 g/dl (31-36); Mean Corpuscular Hemoglobin 31 pg (27-31); Mean Corpuscular Volume 94 fL (80-94); Mean Platelet Volume 7.9 fL (7.4-10.4); Nucleated Red Blood Cells % 0; Platelet Count 237 10^3/ul (150-450); Red Blood Count 4.29 10^6/ul (4.00-5.40); Red Cell Distribution Width 14 % (10.5-15); White Blood Count 12.5 10^3/ul (3.5-10.8)
[2018-03-21 14:00] LABS: INR 0.93 (0.77-1.02)
[2018-03-21 14:08] LABS: Albumin/Globulin Ratio 1.3 (1-3); BUN/Creatinine Ratio 20.7 (8-20); C Reactive Protein 57.59 mg/L (<8.01); Calcium 9.4 mg/dL (8.6-10.3); EGFR African American 76.9 (>60); EGFR Non-African American 63.6 (>60); Globulin 3.2 g/dL (2-4); Potassium 4.3 mmol/L (3.5-5.0); Total Bilirubin 0.3 mg/dL (0.2-1.0); Total Protein 7.2 g/dL (6.4-8.9)
[2018-03-21 14:09] LABS: Troponin I 0.01 ng/mL (<0.04)
[2018-03-21] MEDS ORDERED: Acetaminophen TAB* 325 MG PO PRN (18:31)
[2018-03-21] MEDS ORDERED: Albuterol HFA INHALER* 8 gm MDI INH PRN (18:37)
[2018-03-21] MEDS ORDERED: NS 0.9% 1000 ML** 1,000 ML IV SCH (18:45)
[2018-03-21] MEDS ORDERED: NS 0.9% 500 ML* 500 ML IV SCH (19:00)
[2018-03-21] MEDS ORDERED: Levalbuterol 0.63MG/3ML NEB* UNIT OF USE INH SCH (20:15)
[2018-03-21] MEDS ORDERED: Albuterol/Ipratropium NEB.SOL* Albuterol 2.5 MG/Ipratropium 0.5 MG 3 ML INH SCH (22:00)
[2018-03-21] MEDS: Metoprolol Succinate XL TAB* 25 MG PO SCH (22:15)
[2018-03-21] MEDS: Atorvastatin* 10 MG TAB PO SCH (22:15)
[2018-03-21] MEDS: cefTRIAXone(*) 1 GM in NS 0.9% 50 ML* 50 ML IVPB SCH (22:16)
[2018-03-21] MEDS: Heparin VIAL(*) 5000 UNITS/ML VIAL (FIVE THOUSAND) SUBCUT SCH (22:16)
--- NOTE | 2018-03-21 22:27 | HP ---
CC: Dr. Alondra Redd * HISTORY AND PHYSICAL: DATE OF ADMISSION: 03/21/18 PROVIDER: Modesta Jose NP PRIMARY CARE PROVIDER: Dr. Alondra Redd. ATTENDING PHYSICIAN WHILE IN THE HOSPITAL: Dr. Michaela Ashraf * (dictated by Modesta Jose NP). CHIEF COMPLAINT: Shortness of breath. HISTORY OF PRESENT ILLNESS: Mr. Hawkins is an 82-year-old male, who carries a past medical history significant for COPD, non-STEMI on 12/06/17, history of diastolic congestive heart failure, history of acute on chronic respiratory failure, who presented to the emergency room with a 3-to 4-day history of increased shortness of breath. Per the , the patient has had increased shortness of breath for 3 to 4 days, worse with exertion, difficulty catching his breath. The patient has a chronic cough. Denies any increase in the cough. Does report that is productive with white secretions. Denies any fever or chills. The patient, over the last 3 to 4 days, has also had some increased weakness. Due to these symptoms, they called the tractor mechanic helper, who the patient is scheduled to have an appointment with, who directed them to come to the emergency room for further evaluation. The patient had a recent non-STEMI in December of 2017. He was sent for cardiac catheterization at [facility]. At that time, per the family, there was noted to be mild plaquing, no stenting, and medical management was the plan of choice for his non-STEMI. The patient reports that he has had no chest pain, just shortness of breath. The reports that she has recently been sick with an upper respiratory tract infection as well. Due to the increased shortness of breath and tachycardia, we were asked to see and evaluate him for admission. PAST MEDICAL HISTORY: Significant for non-STEMI on 12/06/17, diastolic congestive heart failure, acute on chronic respiratory failure, COPD. PAST SURGICAL HISTORY: Cardiac catheterization. HOME MEDICATIONS: 1. Nitroglycerin 0.4 mg 1 tablet sublingual q.5 minutes as needed for chest pain. 2. Enteric-coated aspirin 81 mg p.o. daily. 3. Ipratropium/albuterol 1 vial four times a day. 4. Metoprolol 12.5 mg p.o. b.i.d. 5. Albuterol HFA inhaler 2 puffs q.4 hours as needed for shortness of breath. 6. Prednisone 5 mg p.o. daily. 7. Tiotropium bromide/olodaterol 2 puffs daily. 8. Pulmicort neb, 1 neb b.i.d. 9. Atorvastatin 10 mg p.o. daily. ALLERGIES: allergies to ORAL and IV CONTRAST. FAMILY HISTORY: Mom of old age. Father , had a history of cancer. He has 8 siblings, all of them, by him, have had cancer. SOCIAL HISTORY: The patient quit smoking in November. Prior to that, he smoked a half a pack a day for 70 years. He does not drink alcohol. Surrogate decision maker in the event he is unable to make his own decisions is his . He is a full code. REVIEW OF SYSTEMS: There has been no documented fever. There has not been any significant weight change. No double vision. No ear discharge. No rhinorrhea. The patient does complain of cough and shortness of breath. In brief, he reports the cough is chronic and it is productive with white secretions. He denies any chest pain. He does report that the shortness of breath is worse with exertion. Denies any nausea or vomiting. No dysuria, no urinary frequency. There has been no seizures or loss of consciousness. No pruritus or skin ulceration. Review of 14 systems was completed, all others were negative. PHYSICAL EXAMINATION GENERAL: At this time, Mr. Hawkins is an 82-year-old male, who appears to have mild respiratory distress, but able to speak full sentences, make his needs known. He is alert and oriented. He does appear well-nourished and well- developed. He is slightly dehydrated. VITAL SIGNS: Blood pressure 109/63, heart rate is 104, respirations are 29, O2 saturation 98%, temperature was 98.7. HEENT: Head is atraumatic, normocephalic. Eyes: EOMs are intact. Sclerae anicteric and not pale. Oral mucosa appeared to be moist. No oropharyngeal erythema. NECK: Supple. LUNGS: Diminished throughout with expiratory wheezes. No rales or rhonchi. CARDIAC: S1, S2. He is tachycardic. No murmurs, rubs, or gallops. ABDOMEN: Soft, flat, nontender. Bowel sounds are present x4. EXTREMITIES: Pedal pulses are +2 bilaterally. He has no peripheral edema. He is able to move all 4 extremities with 5/5 strength. NEUROLOGIC: He is awake, alert, and oriented x3. Speech is clear. Thought process intact. No gross focal deficits are noted. SKIN: Grossly intact. DIAGNOSTIC STUDIES/LAB DATA: WBCs are 12.5, RBCs 4.29, hemoglobin 13.3, hematocrit 40, platelet count 237. INR is 0.93. ABG: His pH was 7.45, PCO2 was 40, PO2 was 152, HCO3 was 27.7, O2 saturation 99.4. Sodium 139, potassium 4.3, chloride 100, carbon dioxide was 32, anion gap was 7, BUN was 23, creatinine 1.11, glucose was 124, lactic acid 1.3, calcium 9.4, T-bili was 0.30. ASTs were 27, ALTs were 27, alkaline phosphatase 143. Troponin 0.01 x2. C-reactive protein was 57.59. BNP was 139. Flu A and B were both negative. He had a chest x-ray, radiologist's impression of COPD. Electrocardiogram that showed sinus tachycardia at a rate of 108. He does have inverted P waves in V1, V2. He does have some mild ST depression in V4. ASSESSMENT AND PLAN: Mr. Hawkins is an 82-year-old male with past medical history significant for chronic obstructive pulmonary disease, non-ST elevation myocardial infarction in November 2017, history of diastolic congestive heart failure, acute on chronic respiratory failure, who presented to the emergency room with complaints of increased shortness of breath for 3 to 4 days. He will be admitted to observation for: 1. Chronic obstructive pulmonary disease exacerbation. I suspect that this is the cause of his shortness of breath. I will continue him on O2 via nasal cannula, as he is able to maintain O2 saturations at 97% to 98% on 3 L. I am going to put him on antibiotics as his is currently ill with the upper respiratory virus. I will get blood cultures, urine cultures, sputum cultures. I will get urine for legionella and S. pneumoniae. I am going to place him on steroids, prednisone 40 mg p.o. daily, and continue with nebulizer treatments and inhaled steroids. 2. Tachycardia. I suspect this tachycardia is related to compensating for his increased respiratory function as well as underlying mild dehydration. I will give him some gentle hydration overnight. He will get his second dose of beta tonie this evening and we will continue to monitor him for any further symptoms. I will continue to trend his troponins and repeat an EKG in the a.m. 3. History of coronary artery disease. The patient is status post non-ST elevation myocardial infarction in November 2017. At that time, he had ischemic cardiomyopathy with an ejection fraction of 20% to 30%. He has had cardiac catheterization since that point, which showed mild plaquing and no stenting was needed. He did have that cardiac catheterization done in [facility]. Medical management was a choice of treatment. He was placed on metoprolol, aspirin, and statin therapy. He has since had repeat echocardiogram, last done in January of 2018, which at that time showed an ejection fraction of 60% to 65% and Doppler evidence of pseudonormal diastolic dysfunction at a grade 2. The right ventricle cavity was normal in size with hypodynamic right ventricle. There was no evidence of aortic stenosis and trace mitral valve regurgitation. At this time, we will continue on his metoprolol, aspirin, and statin therapy. Again, we will continue to trend his troponins. The patient currently has no chest pain. He has not had any chest pain throughout this episode of increased shortness of breath. We will repeat an EKG in the a.m. If his troponin should become elevated or he has significant changes in his EKG, consideration for consult to Cardiology would be recommended. 4. FEN. He can have a heart-healthy, decaf-okay diet. 5. Code status. He is a full code. 6. DVT prophylaxis. I will place him on heparin subcu. 7. Disposition. He will be placed in observation on medical telemetry on the medical floor for chronic obstructive pulmonary disease exacerbation. TIME SPENT: Time spent on this admission was 60 minutes, greater than half that time was spent at the bedside, reviewing events leading thus far to his hospitalization, performing my physical exam. The rest of the time was spent implementing my plan of care and reviewing my plan of care. I have discussed this with my attending, Dr. Michaela Ashraf; she is in agreement with my plan. MODESTA JOSE NP [id number]/[facility] #: [id number] [facility] CENTERJoaquin
[2018-03-21] MEDS: Budesonide NEB* 0.25 MG/2 ML NEB.SOLN INH SCH (23:11)
[2018-03-21 23:57] LABS: Urine Appearance Cloudy; Urine Bacteria Absent (Absent); Urine Bilirubin Negative (Negative); Urine Blood 1+ (Negative); Urine Color Yellow; Urine Glucose Negative (Negative); Urine Ketones Trace (Negative); Urine Nitrite Negative (Negative); Urine Protein Negative (Negative); Urine Red Blood Cell 3+(>10/hpf) (Absent); Urine Specific Gravity 1.024 (1.010-1.030); Urine Squamous Epithelial Cell Present (Absent); Urine Urobilinogen Negative (Negative); Urine White Blood Cell 2+(11-20/hpf) (Absent)
[2018-03-22] MEDS: Levalbuterol 1.25MG/0.5ML NEB INH SCH ×3 (01:23→07:40)
[2018-03-22] MEDS: Heparin VIAL(*) 5000 UNITS/ML VIAL (FIVE THOUSAND) SUBCUT SCH ×3 (05:34→21:18)
[2018-03-22 06:56] LABS: ABS Basophils 0 10^3/ul (0-0.2); ABS Eosinophils 0 10^3/ul (0-0.6); ABS Lymphocytes 0.4 10^3/ul (1.0-4.8); ABS Monocytes 0.5 10^3/ul (0-0.8); ABS Neutrophils 8.2 10^3/ul (1.5-7.7); ABS Nucleated RBC 0 10^3/ul; Eosinophil % 0 %; Hematocrit 36 % (42-52); Hemoglobin 11.8 g/dl (14.0-18.0); Lymphocyte % 4.7 %; Mean Corpuscular HGB Conc 33 g/dl (31-36); Mean Corpuscular Hemoglobin 31 pg (27-31); Mean Corpuscular Volume 94 fL (80-94); Mean Platelet Volume 8.2 fL (7.4-10.4); Nucleated Red Blood Cells % 0; Platelet Count 209 10^3/ul (150-450); Red Blood Count 3.79 10^6/ul (4.00-5.40); Red Cell Distribution Width 14 % (10.5-15); White Blood Count 9.2 10^3/ul (3.5-10.8)
[2018-03-22 07:18] LABS: BUN/Creatinine Ratio 22.2 (8-20); Calcium 8.9 mg/dL (8.6-10.3); Potassium 4.1 mmol/L (3.5-5.0)
[2018-03-22] MEDS: Budesonide NEB* 0.25 MG/2 ML NEB.SOLN INH SCH ×3 (07:39→21:23)
[2018-03-22] MEDS ORDERED: Albuterol 2.5 MG/3 ML NEB.SOL* (0.083%) INH PRN (07:46)
[2018-03-22] MEDS ORDERED: Morphine INJ* 2 MG/ML 1 ML SYRINGE (TWO MG - NEW SYRINGE VERSION) IV STA ×2 (07:51→17:51)
[2018-03-22] MEDS: Tiotropium Brom/Olodaterol(NF) 4 GM 60 PUFF MDI INH SCH (07:52)
[2018-03-22] MEDS: Aspirin EC TAB* 81 MG TAB.EC PO SCH (08:07)
[2018-03-22] MEDS: Metoprolol Succinate XL TAB* 25 MG PO SCH ×2 (08:07→21:58)
[2018-03-22] MEDS: methylPREDNISolone 125 MG* 2 ML VIAL IV SCH ×3 (08:08→23:42)
[2018-03-22] MEDS ORDERED: Morphine INJ* 2 MG/ML 1 ML SYRINGE (TWO MG - NEW SYRINGE VERSION) IV PRN (09:33)
[2018-03-22] MEDS: Albuterol/Ipratropium NEB.SOL* Albuterol 2.5 MG/Ipratropium 0.5 MG 3 ML INH SCH ×4 (13:31→23:12)
--- NOTE | 2018-03-22 15:31 | PN ---
Subjective Date of Service: 03/22/18 Interval History: Pt seen and examined early this AM when informed by RN that pt was tachypneic w /RR>/=30s. Pt nebulized, low dose Prednisone D/Cd and placed on IV Solumedrol. Pt re-evaluated after a few minutes later and mentioned he feels much better but also re-iterated history of early satiety and dysphagia for at least a year. Meds and labs reviewed. CC: SOB ROS: Denied [place]/dizziness, F/C, N/V, CP, SOB, increased cough, sputum production , abd pain, diarrhea, constipation, dysuria, myalgias, arthralgias, throat pain , and new skin lesions. The rest of the 14 point ROS are unremarkable. PHYSICAL EXAM: GEN APPEARANCE: Awake, not in acute distress HEENT: NC/AT, PERRLA, moist oral mucosa, (-) throat erythema NECK: Soft, supple, (-) cervical LAD, (-)JVD HEART: S1S2 WNL, RRR, No MRG CHEST: (+)Wheezing, GAE ABD: Soft, ND/NT, NABS 4x Q EXT: No C/C/E SKIN: Warm to touch PSYCH: No active psychosis, hallucinations, depression, SI/HI Objective Active Medications: Acetaminophen (Tylenol Tab*) 650 mg PO Q4H PRN PRN Reason: FEVER/PAIN Albuterol (Ventolin 2.5 Mg/3 Ml Neb.Nancy*) 2.5 mg INH Q2H PRN PRN Reason: SOB/WHEEZING Albuterol/Ipratropium (Duoneb (Albuterol 2.5 Mg/Ipratropium 0.5 Mg)) 1 neb INH [id number] AWAKE [facility] Last Admin: 03/22/18 13:31 Dose: 1 neb Aspirin (Aspirin Ec Tab*) 81 mg PO DAILY PATITO Last Admin: 03/22/18 08:07 Dose: 81 mg Atorvastatin Calcium (Lipitor*) 10 mg PO BEDTIME PATITO Last Admin: 03/21/18 22:15 Dose: 10 mg Budesonide (Pulmicort Neb*) 0.25 mg INH BID PATITO Last Admin: 03/22/18 07:39 Dose: 0.25 mg Heparin Sodium (Porcine) (Heparin Vial(*)) 5,000 units SUBCUT Q12H PATITO Last Admin: 03/22/18 08:07 Dose: 5,000 units Ceftriaxone Sodium 1 gm/ (Sodium Chloride) 50 mls @ 200 mls/hr IVPB Q24H [facility] Last Admin: 03/21/18 22:16 Dose: 200 mls/hr Azithromycin 500 mg/ Sodium (Chloride) 250 mls @ 250 mls/hr IVPB Q24H [facility] Methylprednisolone Sodium Succinate (Solu-Medrol 125mg *) 60 mg IV Q8H [facility] Last Admin: 03/22/18 08:08 Dose: 60 mg Metoprolol Succinate (Toprol Xl Tab*) 12.5 mg PO BID [facility] Last Admin: 03/22/18 08:07 Dose: 12.5 mg Morphine Sulfate (Morphine Inj ((Syringe))*) 0.5 mg IV Q6H PRN PRN Reason: Pain/Air hunger Last Admin: 03/22/18 12:51 Dose: 0.5 mg Fluticasone/Salmeterol (Advair Diskus 500-50*) 1 puff INH BID [facility] Tiotropium [place]/Olodaterol (Stiolto Respimat Inh [place] (60 Puff)(Nf)) 2 puff INH DAILY [facility] Last Admin: 03/22/18 07:52 Dose: Not Given Vital Signs - 8 hr 03/22/18 03/22/18 03/22/18 07:40 08:00 08:06 Temperature Pulse Rate 110 Respiratory 40 34 34 Rate Blood Pressure (mmHg) O2 Sat by Pulse 99 Oximetry 03/22/18 03/22/18 03/22/18 09:06 11:13 12:51 Temperature 97.4 F Pulse Rate 102 Respiratory 20 40 32 Rate Blood Pressure 140/70 (mmHg) O2 Sat by Pulse 99 Oximetry 03/22/18 03/22/18 13:29 15:00 Temperature 99.4 F Pulse Rate 104 126 Respiratory 36 40 Rate Blood Pressure 120/78 (mmHg) O2 Sat by Pulse 99 100 Oximetry Oxygen Devices in Use Now: Nasal Cannula Result Diagrams: 03/22/18 06:32 03/22/18 06:32 Microbiology and Other Data: Microbiology 03/21/18 14:42 Aerobic Blood Culture - Preliminary Blood Venous No Growth Day 1 Anaerobic Blood Culture - Preliminary No Growth Day 1 03/21/18 13:40 Aerobic Blood Culture - Preliminary Blood Venous No Growth Day 1 Anaerobic Blood Culture - Preliminary No Growth Day 1 03/21/18 12:56 Influenza Types A,B Antigen - Final Nasopharyngeal Specimen received for Influenza A/B Molecular testing Assess/Plan/Problems-Billing Assessment: - Patient Problems (1) COPD exacerbation Current Visit: No Status: Acute Code(s): J44.1 - CHRONIC OBSTRUCTIVE PULMONARY DISEASE W (ACUTE) EXACERBATION SNOMED Code(s): 269221703 Comment: -Continue Rocephin and Azithromycin -Continue nebulization and ICS -Will place on Advair as ordered -D/C PO Prednisone and placed on IV Solmudrol -Improved on re-visit (2) Tachycardia Current Visit: No Status: Acute Code(s): R00.0 - TACHYCARDIA, UNSPECIFIED SNOMED Code(s): 3616295 Comment: -Likely due to SOB due to above -Doubt PE given D-dimer can be normal for age but will re-consider if slow progress (3) CAD (coronary artery disease) Current Visit: Yes Status: Acute Code(s): I25.10 - ATHSCL HEART DISEASE OF [place] CORONARY ARTERY W/O ANG PCTRS SNOMED Code(s): 14589421 Comment: -Continue ASA, Metoprolol, and Atorvastatin (4) DVT prophylaxis Current Visit: No Status: Acute Code(s): ZPR2503 - SNOMED Code(s): 454244231 Comment: -Change Heparin to SQq12H Status and Disposition: -As above
[2018-03-22] MEDS: Azithromycin IV(*) 500 MG in NS 0.9% 250 ML* 250 ML IVPB SCH (16:11)
[2018-03-22] MEDS ORDERED: LORazepam INJ* 2 MG/ML 1 ML VIAL IV PUSH PRN (17:30)
[2018-03-22] MEDS ORDERED: Morphine VIAL* 4 MG/ML VIAL (1 ml vial) ONE (18:46)
[2018-03-22] MEDS ORDERED: methylPREDNISolone 125 MG* 2 ML VIAL ONE (18:47)
[2018-03-22] MEDS ORDERED: methylPREDNISolone 125 MG* 2 ML VIAL IV ONE (19:45)
[2018-03-22] MEDS: Morphine VIAL* 4 MG/ML VIAL (1 ml vial) IV PRN (19:51)
[2018-03-22] MEDS ORDERED: NS 0.9% 1000 ML** 1,000 ML IV SCH (20:15)
--- NOTE | 2018-03-22 20:18 | PN ---
Date of Service: 03/22/18 - 2 Critical Care Services: 82 yo M with history of arrhythma, COPD and diastolic CHF presented to the ED on 03/21/2018 with 4 days shortness of breath, chronic cough and productive secretions. On evaluation he was found to have diminished lung sounds and expiratory wheezes. WBC elevated. CXR consistent with COPD. He was diagnosed with COPD exacerbation, started on steriods, antibiotics and bronchodilators and admitted to the medical service. 03/22: He developed worsening shortness of breath, work of breathing, tachypnea and tachycardia throughout the day. ABG with pH 7.2, pCO2 50s. Transferred to ICU for further care. started on BiPAP with improvement in symptoms. Vital Signs: Temp Pulse Resp BP SpO2 FiO2 98.0 F 155 28 160/109 91 40 03/22/18 18:40 03/22/18 18:40 03/22/18 19:51 03/22/18 18:40 03/22/18 18:40 03/22 19:43 Physical Exam: Gen: resting comfortably in bed HEENT: BiPAP in place Lungs: expiratory wheezes bilaterally. moving moderate quantity of air Cardiac: tachycardic, regular Abdomen: soft, NTND Extremities: warm, dry, no edema Neuro: alert, nods to questions Fluid Balance (Past 24 Hours): I= O= Net Intake & Output 03/20/18 03/21/18 03/22/18 03/23/18 06:59 06:59 06:59 06:59 Intake Total 150 1903 Output Total 150 500 Balance 0 1403 Weight 110 lb 4.8 oz Intake: IV Fluids 150 1401 IVPB 265 Oral 0 237 Output: Urine 150 500 Other: # Voids 0 ADLs: Meal Record Start: 03/21/18 19: 34 Freq: DAILY@0900,1400,1800 Status: Active Protocol: Created 03/21/18 19:34 System (Rec: 03/21/18 19:34 System [id number]) Document 03/22/18 09:00 [id number] (Rec: 03/22/18 11:48 [id number] MED-C09) Document 03/22/18 13:54 [id number] (Rec: 03/22/18 13:55 [id number] MED-C09) Document 03/22/18 18:00 [id number] (Rec: 03/22/18 19:34 [id number] MED-C03) Intake and Output Start: 03/21/18 12: 53 Freq: Status: Active Protocol: Created 03/21/18 12:53 System (Rec: 03/21/18 12:53 System [id number]) Intake and Output Start: 03/21/18 19: 34 Freq: DAILY@0600,1400,2200 Status: Active Protocol: Created 03/21/18 19:34 System (Rec: 03/21/18 19:34 System [id number]) Document 03/21/18 22:00 [id number] (Rec: 03/21/18 23:49 [id number] MED-C11) Document 03/22/18 06:00 [id number] (Rec: 03/22/18 06:20 [id number] MED-C09) Document 03/22/18 13:54 [id number] (Rec: 03/22/18 13:55 [id number] MED-C09) Document 03/22/18 16:36 [id number] (Rec: 03/22/18 16:36 [id number] MED-M09) Labs: Laboratory Results - last 24 hr 03/21/18 03/21/18 03/22/18 21:40 23:30 06:32 WBC 9.2 RBC 3.79 L Hgb 11.8 L Hct 36 L MCV 94 MCH 31 MCHC 33 RDW 14 Plt Count 209 MPV 8.2 Neut % (Auto) 89.5 Lymph % (Auto) 4.7 [place] % (Auto) 5.4 Eos % (Auto) 0 Baso % (Auto) 0.4 Absolute Neuts (auto) 8.2 H Absolute Lymphs (auto) 0.4 L Absolute Monos (auto) 0.5 Absolute Eos (auto) 0 Absolute Basos (auto) 0 Absolute Nucleated RBC 0 Nucleated RBC % 0 D-Dimer, Quantitative Patient Temperature ABG pH ABG pH (Temp Correct) ABG pCO2 ABG pCO2 (Temp Corrct ABG pO2 ABG pO2 (Temp Correct ABG HCO3 ABG O2 Saturation ABG Base Excess Respiration Rate O2 Delivery Device Ventilator Type Vent Mode FiO2 Inspiratory Time PEEP Pressure Support Pressure Control EPAP IPAP BiPAP Sodium Potassium Chloride Carbon Dioxide Anion Gap BUN Creatinine Est GFR ( Amer) Est GFR (Non-Af Amer) BUN/Creatinine Ratio Glucose Calcium Troponin I 0.01 Urine Color Yellow Urine Appearance Cloudy Urine pH 5.0 Ur Specific [place] 1.024 Urine Protein Negative Urine Ketones Trace A Urine Blood 1+ A Urine Nitrate Negative Urine Bilirubin Negative Urine Urobilinogen Negative Ur Leukocyte Esterase Trace A Urine WBC (Auto) 2+(11-20/hpf) A Urine RBC (Auto) 3+(>10/hpf) A Ur Squamous Epith Cells Present A Urine Bacteria Absent Urine Glucose Negative 03/22/18 03/22/18 03/22/18 06:32 08:03 18:09 WBC RBC Hgb Hct MCV MCH MCHC RDW Plt Count MPV Neut % (Auto) Lymph % (Auto) [place] % (Auto) Eos % (Auto) Baso % (Auto) Absolute Neuts (auto) Absolute Lymphs (auto) Absolute Monos (auto) Absolute Eos (auto) Absolute Basos (auto) Absolute Nucleated RBC Nucleated RBC % D-Dimer, Quantitative 247 H Patient Temperature Not Reportable ABG pH 7.28 L ABG pH (Temp Correct) Not Reportable ABG pCO2 54 H ABG pCO2 (Temp Corrct Not Reportable ABG pO2 196 H ABG pO2 (Temp Correct Not Reportable ABG HCO3 23.2 ABG O2 Saturation 100.0 H ABG Base Excess -2.2 L Respiration Rate Not Reportable O2 Delivery Device 2lpm Ventilator Type Not Reportable Vent Mode Not Reportable FiO2 Not Reportable Inspiratory Time Not Reportable PEEP Not Reportable Pressure Support Not Reportable Pressure Control Not Reportable EPAP Not Reportable IPAP Not Reportable BiPAP Not Reportable Sodium 140 Potassium 4.1 Chloride 105 Carbon Dioxide 27 Anion Gap 8 BUN 20 Creatinine 0.90 Est GFR ( Amer) 98.0 Est GFR (Non-Af Amer) 81.0 BUN/Creatinine Ratio 22.2 H Glucose 139 H Calcium 8.9 Troponin I Urine Color Urine Appearance Urine pH Ur Specific [place] Urine Protein Urine Ketones Urine Blood Urine Nitrate Urine Bilirubin Urine Urobilinogen Ur Leukocyte Esterase Urine WBC (Auto) Urine RBC (Auto) Ur Squamous Epith Cells Urine Bacteria Urine Glucose Studies: 03/21 CXR - COPD Nutrition: NPO until respiratory status improved Impression: 82 yo M with COPD, NSTEMI, CHF admitted with 4 days worsening shortness of breath and COPD exacerbation. Worsened on floor and transferred to ICU for BiPAP. Plan: Cardiovascular: (1) Sinus tachycardia; (2) hx of NSTEMI, 12/06/2017I; (3) hx of diastolic CHF -- HR 98-165 -- SBP 114-160 -- Telemetry -- TTE ordered -- Cardiac markers Trop 0.01 x 3 BNP 139 -- ASA -- Atorvastatin -- Metoprolol Home meds: Nitro, ASA, metoprolol, Atorvastatin Pulmonary: (1) Acute on chronic hypoxic and hypercapneic respiratory failure; ( 2) COPD exacerbation -- RR 16-44 -- sats 91-100 on BiPAP -- CXR: unchanged from prior -- ABG, on 2LNC: pH 7.28; pCO2 54; pO2 196; HCO3 23.2; BE -2.2; %O2 Sat.100 -- ABG, on biPAP: pH 7.31, pCO2 48, pO2 133, HCO3 23.0, BE -2.5, %O2sat 99.4. after 1 hr on BiPAP -- Morphine as needed for air hunger -- Albuterol PRN and Duonebs scheduled -- Pulmicort -- Moteasone furoate-formoterol fumar -- Tiotoprium bromide-olodaterol -- work of breathing and ABG improved after BiPAP Home meds: Duonebs, Albuterol, Tiotoprium bromide-olodaterol, Pulmicort Gastrointestinal: No acute issues -- diet: NPO until respiratory status improved -- bowel regimen: None -- ulcer prophylaxis: Protonix Home meds: None Endocrine: No acute issues -- monitor BGs -- Solumedrol Home meds: Prednisone Renal: No acute issues -- I&O: 1903 in/ 500 ml out in 12 hrs -- Cr 0.90 from 1.11 -- Lytes Na 140 from 139 K 4.1 Ca 8.9 -- IVF: NS @ 50 ml/hr Home meds: None Infectious disease: (1) Possible community acquired pneumonia -- Tmax 99.4 -- WBC 9.2 from 12.5 -- Micro 2/13 UA negative -- ABX Rocephin Azithromycin Home meds: None Neurologic: (1) Anxiety secondary to respiratory difficulties, improved -- Tylenol as needed -- Morphine as needed for air hunger Home meds: None Hematological: (1) Anemia -- Hgb 11.8 from 13.5 -- Plt 237 from 209 -- Coags INR 0.93 Ddimer 247 -- DVT prophylaxis: SQ Heparin -- ASA Home meds: ASA Metabolic: No acute issues -- lactic acid 1.3 Home meds: None Deep vein thrombosis prophylaxis: SQ Heparin Dietary: Protonix Condition: critical Prognosis: guarded Code status: full Disposition: continue ICU Care Family updated at bedside regarding interval events and plan of care Cumulative time spent in the care of this patient (excluding any procedure time) : at least 50 minutes. Patient care included clinical interview (with patient and/or family), bedside exam of the patient, review of labs, x-rays, and other ancillary data, coordination of (respiratory, nursing care, review of patient's records, discussion regarding patients management with involved consultants, primary physician, pharmacists, and other healthcare personnel (dietary, case management , physical/occupational therapy etc.) Critical Care Time: 50 min
--- NOTE | 2018-03-22 21:06 | CONS ---
CC: Dr. Alondra Redd * CONSULTATION REPORT: DATE OF CONSULT: 03/22/18 PRIMARY CARE PHYSICIAN: Dr. Alondra Redd. REASON FOR CONSULT: Early satiety, rare dysphagia. REQUESTING PROVIDER: Dr. Zheng. HISTORY OF PRESENT ILLNESS: This is a pleasant 82-year-old male who initially presented to [facility] [place] with dyspnea. His is at bedside and provided some supplemental history as the patient has some conversational dyspnea. She states over the last 1 to 2 years he has had increased early satiety with a feeling of fullness, relatively early; occasionally states there is some difficulty with some solid foods, but is usually able to wash these down without issue. He does take daily aspirin, but denies any other NSAID use. Denies any diarrhea, constipation, moves his bowels on a daily basis without issue. No current nausea or emesis. He does admit to significant dyspnea and cough. He states that he produces white secretions with the cough. Denies any current chest pain or abdominal pain. PAST MEDICAL HISTORY: NSTEMI, diastolic heart failure, severe COPD. PAST SURGICAL HISTORY: Cardiac catheterization. He did have an upper endoscopy many years ago for a small ulcer. He has avoided NSAIDs with the exception of aspirin since that point. MEDICATIONS: Home medicines include: 1. Nitro. 2. Aspirin. 3. Ipratropium/albuterol. 4. Metoprolol. 5. Albuterol. 6. Prednisone. 7. Tiotropium. 8. Pulmicort. 9. Atorvastatin. ALLERGIES: ORAL and IV CONTRAST. FAMILY HISTORY: Father had a history of cancer, unknown type. Multiple siblings with cancer of unknown type. SOCIAL HISTORY: Quit smoking in November prior to that was over a half of pack a day for 70 years. Does not drink alcohol. REVIEW OF SYSTEMS: Remainder of the 14-point review of systems is grossly negative. PHYSICAL EXAM: Vital Signs: Blood pressure is 120/78, pulse 120, respiratory rate is 28 to 40, temperature 99.4, 100% on room air. In general, he is anxious , tachypneic, chronically ill appearing. HEENT: Atraumatic, normocephalic. Pupils equal, round, reactive to light. Conjunctivae are pink. Sclerae anicteric. Cardiovascular: Tachycardic. S1, S2. Respiratory: Diminished bilaterally. Abdomen is soft, nontender, nondistended. Bowel sounds are positive. Extremities: No cyanosis or edema. Skin: Few scattered ecchymosis. Musculoskeletal: Decreased muscle bulk and tone. DIAGNOSTIC STUDIES/LAB DATA: Hemoglobin 11.8, platelet count is 209. BUN 20, creatinine 0.9. ASSESSMENT AND PLAN: This is an 82-year-old male with early satiety and rare dysphagia. I had an extensive discussion with the patient and his at the bedside. We discussed potential investigation to further investigate. I discussed briefly upper endoscopy, and at this point, the patient and the wish no further testing of that sort. They would consider potentially in the future if his pulmonary status improves as an outpatient. At this time, they do not feel that the difficulty swallowing and early satiety are a primary problem. They would prefer to hold off on further investigation. I think it is reasonable to consider empiric PPI treatment for him, to see if this helps his early satiety. I would recommend nutrition evaluation to maximize his caloric input given his work of breathing and likely need for higher calories because of this. Given his severe COPD, he is a poor endoscopy candidate. At this time, I would recommend recalling of any further interest in endoscopic evaluation or further questions, but at this point, we will follow conservative care as per the wishes of the patient and his . [id number]/[facility] #: [id number] ITZ
[2018-03-22] MEDS: Pantoprazole IV* 40 MG IV SCH (21:19)
[2018-03-22] MEDS: Mometasone/Formoter 200/5 MDI INH SCH (21:26)
[2018-03-22] MEDS ORDERED: Metoprolol Tartrate IV* 1 MG/ML 5 ML VIAL IV PRN (21:48)
[2018-03-22] MEDS: Atorvastatin* 10 MG TAB PO SCH (21:58)
[2018-03-22] MEDS: cefTRIAXone(*) 1 GM in NS 0.9% 50 ML* 50 ML IVPB SCH (22:23)
--- NOTE | 2018-03-23 01:11 | PN ---
Progress Note - Progress Note Date of Service: 03/23/18 Note: Paged for elevated trop, EKG ordered Suspect demand ischemia from PNA. Will trend. Patient on ASA 81 mg.
[2018-03-23] MEDS: Albuterol/Ipratropium NEB.SOL* Albuterol 2.5 MG/Ipratropium 0.5 MG 3 ML INH SCH ×6 (03:18→23:16)
[2018-03-23 06:08] LABS: Hematocrit 36 % (42-52); Hemoglobin 11.7 g/dl (14.0-18.0); Mean Corpuscular HGB Conc 33 g/dl (31-36); Mean Corpuscular Hemoglobin 31 pg (27-31); Mean Corpuscular Volume 94 fL (80-94); Mean Platelet Volume 8.5 fL (7.4-10.4); Platelet Count 217 10^3/ul (150-450); Red Blood Count 3.78 10^6/ul (4.00-5.40); Red Cell Distribution Width 14 % (10.5-15); White Blood Count 16.3 10^3/ul (3.5-10.8)
[2018-03-23 06:25] LABS: Albumin 3.4 g/dL (3.2-5.2); Albumin/Globulin Ratio 1.2 (1-3); EGFR African American 86.8 (>60); EGFR Non-African American 71.7 (>60); Globulin 2.8 g/dL (2-4); Magnesium 1.9 mg/dL (1.9-2.7); Phosphorus 3.5 mg/dL (2.5-5.0); Potassium 4.3 mmol/L (3.5-5.0); Total Bilirubin 0.2 mg/dL (0.2-1.0); Total Protein 6.2 g/dL (6.4-8.9)
[2018-03-23] MEDS: Budesonide NEB* 0.25 MG/2 ML NEB.SOLN INH SCH ×2 (08:29→19:48)
[2018-03-23] MEDS: Metoprolol Succinate XL TAB* 25 MG PO SCH ×3 (08:50→23:09)
[2018-03-23] MEDS: Aspirin EC TAB* 81 MG TAB.EC PO SCH (08:50)
[2018-03-23] MEDS: methylPREDNISolone 125 MG* 2 ML VIAL IV SCH ×2 (08:51→16:43)
[2018-03-23] MEDS: Heparin VIAL(*) 5000 UNITS/ML VIAL (FIVE THOUSAND) SUBCUT SCH ×2 (08:51→19:59)
[2018-03-23] MEDS: Morphine VIAL* 4 MG/ML VIAL (1 ml vial) IV PRN ×2 (08:52→20:11)
[2018-03-23] MEDS: Tiotropium Brom/Olodaterol(NF) 4 GM 60 PUFF MDI INH SCH (08:56)
--- NOTE | 2018-03-23 09:50 | ECHO ---
Patient: ROSE BAHENA [facility] Rec#: [id number] : 1935 Date: 03/23/2018 Age: 82y Height: 170 cm / 66.9 in Weight: 50 kg / 110.2 lbs Sex: M BSA: 1.57 Room#: [facility] Admit Date#: 03/22/2018 Type: Inpatient Referring: Mabel Parson Reading: Vikram Quick DO Visitor Services Representative: Isela Gaviria RDCS CC: Alondra Duncan MD Transthoracic Echocardiogram Indication: Congestive heart failure BP: 116/79 HR: 111 Rhythm: A-Fib Findings History: COPD, NSTEMI, CHF, former smoker. Technical Comments: The study is technically limited due to poor parasternal windows. Completed at 0830. Left Ventricle: The left ventricular chamber size is normal. There is no left ventricular hypertrophy. There is severely decreased left ventricular systolic function. The estimated ejection fraction is 20-25%. , appears closer to 25%, There is akinesis of the mid myocardial segments, hypokinesis of apical segments and normal functioning basal contraction. The assessment of diastolic function is non-diagnostic. Left Atrium: The left atrial chamber size is normal. Right Ventricle: The right ventricular cavity size is normal. The right ventricular global systolic function is mildly reduced. Right Atrium: The right atrial cavity size is normal. Aortic Valve: The aortic valve is trileaflet. The aortic valve leaflets are mildly thickened. There is no evidence of aortic regurgitation. There is no evidence of aortic stenosis. Mitral Valve: The mitral valve leaflets are mildly thickened. There is a trace of mitral regurgitation. There is no evidence of mitral stenosis. Tricuspid Valve: The tricuspid valve leaflets are normal. There is trace tricuspid regurgitation. Unable to estimate the right ventricular systolic pressure. There is no tricuspid stenosis. Pulmonic Valve: The pulmonic valve structure is not well visualized. There is no evidence of pulmonic regurgitation. There is no pulmonic stenosis. Pericardium: There is no significant pericardial effusion. There is a small pericardial effusion. A pericardial fat pad is visualized. Aorta: There is mild dilatation of the ascending aorta. The aortic arch is not well visualized. The aortic root is normal in size. Pulmonary Artery: The main pulmonary artery is not well visualized. Venous: The inferior vena cava appears normal in size. There is a greater than 50% respiratory change in the inferior vena cava dimension. Conclusions The left ventricular chamber size is normal. There is severely decreased left ventricular systolic function at 25% as described within report. There is no hemodynamically significant MR or LVOT gradient. The right ventricular cavity size is normal. The right ventricular global systolic function is mildly reduced. Unable to estimate the right ventricular systolic pressure. 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 Measurements Name Value Normal Range RVIDd (AP) 2D 2.2 cm (0.9 - 2.6) RVDdMajor (2D) 3.3 cm (2.2 - 4.4) RAd ISD 4CH 3.6 cm (3.4 - 4.9) RA (A4C)W 3.6 cm (2.9 - 4.6) IVSd (2D) 0.9 cm (0.6 - 1) LVPWd (2D) 0.9 cm (0.6 - 1) LVIDd (2D) 3.3 cm (3.6 - 5.4) LVIDs (2D) 2.7 cm - LV FS (2D) 19 % (25 - 45) Aortic Annulus 1.9 cm (1.4 - 2.6) Ao root diameter (2D) 3.5 cm (2.1 - 3.5) Ascending Ao 3.8 cm (2.1 - 3.4) LA dimension (AP) 2D 3.1 cm (2.3 - 3.8) LAd ISD 4CH 4.1 cm (2.9 - 5.3) LA ISD 4CH W 3.5 cm (2.5 - 4.5) Name Value Normal Range LA ESV BP (A/L) index 21 ml/m2 - Name Value Normal Range MV E-wave Vmax 1.3 m/sec - MV deceleration time 130 msec - LV septal e' Vmax 0.08 m/sec - LV lateral e' Vmax 0.05 m/sec - LV E:e' septal ratio 16.3 ratio - LV E:e' lateral ratio 26 ratio - Name Value Normal Range AV Vmax 1 m/sec - AV VTI 17 cm - AV peak gradient 4 mmHg - AV mean gradient 2 mmHg - LVOT diameter 2 cm - LVOT Vmax 0.8 m/sec - LVOT VTI 13 cm - LVOT peak gradient 2 mmHg - LVOT mean gradient 1 mmHg - Name Value Normal Range IVC diameter 1.6 cm - Name Value Normal Range PV Vmax 1 m/sec - PV peak gradient 4 mmHg -
[2018-03-23] MEDS: Mometasone/Formoter 200/5 MDI INH SCH ×2 (10:11→19:42)
--- NOTE | 2018-03-23 12:29 | PN ---
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 03/23: transitioned to HFNC. Reports feeling improved. Vital Signs: Temp Pulse Resp BP SpO2 FiO2 97 F 90 25 100/61 95 40 03/23/18 07:57 03/23/18 12:00 03/23/18 12:00 03/23/18 11:30 03/23/18 12:00 03/23 11:58 Physical Exam: Gen - chronically ill heent - ncat, eomi, perrl neck - no jvd cv - s1/s2, tachy pulm - distant heart sounds, +wheeze abd - soft, nt, nd ext - no cce neuro - aao x3 Fluid Balance (Past 24 Hours): I= O= Net Intake & Output 03/21/18 03/22/18 03/23/18 03/24/18 06:59 06:59 06:59 06:59 Intake Total 150 2333 30 Output Total 150 1000 125 Balance 0 1333 -95 Weight 50.031 kg 51.4 kg Intake: IV Fluids 150 1771 normal saline 370 IVPB 325 ceftriaxone 60 Oral 0 237 30 Output: Urine 150 1000 125 Other: # Voids 0 0 Labs: Laboratory Results - last 24 hr 03/22/18 03/22/18 03/23/18 18:09 19:45 00:01 WBC RBC Hgb Hct MCV MCH MCHC RDW Plt Count MPV Patient Temperature Not Reportable ABG pH 7.28 L 7.31 L ABG pH (Temp Correct) Not Reportable ABG pCO2 54 H 48 H ABG pCO2 (Temp Corrct Not Reportable ABG pO2 196 H 133 H ABG pO2 (Temp Correct Not Reportable ABG HCO3 23.2 23.0 ABG O2 Saturation 100.0 H 99.4 H ABG Base Excess -2.2 L -2.5 L Respiration Rate Not Reportable O2 Delivery Device 2lpm Ventilator Type Not Reportable Vent Mode Not Reportable FiO2 Not Reportable Inspiratory Time Not Reportable PEEP Not Reportable Pressure Support Not Reportable Pressure Control Not Reportable EPAP Not Reportable IPAP Not Reportable BiPAP Not Reportable Sodium Potassium Chloride Carbon Dioxide Anion Gap BUN Creatinine Est GFR ( Amer) Est GFR (Non-Af Amer) BUN/Creatinine Ratio Glucose Calcium Phosphorus Magnesium Total Bilirubin AST ALT Alkaline Phosphatase Troponin I 0.17 H* B-Natriuretic Peptide Total Protein Albumin Globulin Albumin/Globulin Ratio 03/23/18 03/23/18 03/23/18 05:54 05:54 05:54 WBC 16.3 H RBC 3.78 L Hgb 11.7 L Hct 36 L MCV 94 MCH 31 MCHC 33 RDW 14 Plt Count 217 MPV 8.5 Patient Temperature ABG pH ABG pH (Temp Correct) ABG pCO2 ABG pCO2 (Temp Corrct ABG pO2 ABG pO2 (Temp Correct ABG HCO3 ABG O2 Saturation ABG Base Excess Respiration Rate O2 Delivery Device Ventilator Type Vent Mode FiO2 Inspiratory Time PEEP Pressure Support Pressure Control EPAP IPAP BiPAP Sodium 141 Potassium 4.3 Chloride 106 Carbon Dioxide 27 Anion Gap 8 BUN 25 H Creatinine 1.00 Est GFR ( Amer) 86.8 Est GFR (Non-Af Amer) 71.7 BUN/Creatinine Ratio 25.0 H Glucose 223 H Calcium 9.0 Phosphorus 3.5 Magnesium 1.9 Total Bilirubin 0.20 AST 21 ALT 20 Alkaline Phosphatase 113 H Troponin I B-Natriuretic Peptide 1155 H Total Protein 6.2 L Albumin 3.4 Globulin 2.8 Albumin/Globulin Ratio 1.2 Studies: 03/23 TTE - LVEF 20-25% 03/21 CXR - COPD Impression: 82M with hld, systolic chf, severe copd admitted with acute on chronic hypoxic respiratory failure 2/2 copd/pna/chf Plan: Neuro - pain control CV - hld, acute on chronic chf - LVEF 20-25% - unable to tolerate zac 2/2 low bp - c/w toprol - troponin 0.17 - will trend - strict i/o - daily weights - c/w asa/statin pulm - acute on chronic hypoxic and hypercapnic respiratory failure - 2/2 copd/chf/pna - nebs q4h and prn - steroid taper - bipap/hfnc prn id - pna? - cultures neg so far - empiric ceftriaxone/azithro - lactate negative gi - diet as tolerated renal - monitor i/o - monitor lytes heme - monitor cbc endo - fs ok lines - piv ppx - gi/dvt DNR/DNI Critical Care Time: 50 mins
[2018-03-23] MEDS: Azithromycin IV(*) 500 MG in NS 0.9% 250 ML* 250 ML IVPB SCH (16:43)
[2018-03-23] MEDS: Atorvastatin* 10 MG TAB PO SCH (20:00)
[2018-03-23] MEDS: Pantoprazole IV* 40 MG IV SCH (20:00)
[2018-03-23] MEDS: cefTRIAXone(*) 1 GM in NS 0.9% 50 ML* 50 ML IVPB SCH (23:05)
[2018-03-24] MEDS ORDERED: Metoprolol Tartrate IV* 1 MG/ML 5 ML VIAL IV ONE (02:35)
[2018-03-24] MEDS: Albuterol/Ipratropium NEB.SOL* Albuterol 2.5 MG/Ipratropium 0.5 MG 3 ML INH SCH ×6 (03:18→22:43)
[2018-03-24] MEDS ORDERED: Furosemide IV* 10 MG/ML 2 ML VIAL (20 MG) IV ONE (04:52)
[2018-03-24] MEDS ORDERED: Furosemide IV* 10 MG/ML 2 ML VIAL (20 MG) ONE (04:53)
[2018-03-24] MEDS ORDERED: Amiodarone 150 MG IVPREMIX* 150 MG/100 ML BAG IV ONE ×2 (04:58→04:59)
--- NOTE | 2018-03-24 04:59 | PN ---
Progress Note - Progress Note Date of Service: 03/24/18 Note: Paged for acute onset tacyhpnea, patient in rapid afib - appears to be new. Patient with rales b/l and increase work of breathing. CXR ordered. Will switch back to BiPAP, will start amiodarone (did not respond well to Lopressor IV and with Ef of 20% do not think he will tolerate diltiazem well) Will sign out to Dr. Molina. CXR ?new infiltrate - will broaden antibiotics to zosyn
[2018-03-24] MEDS: Metoprolol Tartrate IV* 1 MG/ML 5 ML VIAL ONE ×2 (05:06→08:00)
[2018-03-24] MEDS: Morphine VIAL* 4 MG/ML VIAL (1 ml vial) IV PRN ×4 (05:08→22:51)
[2018-03-24] MEDS ORDERED: Amiodarone 360 MG IVPREMIX* 360 MG/200 ML BAG IV ONE (05:15)
[2018-03-24 05:30] LABS: Hematocrit 35 % (42-52); Hemoglobin 11.5 g/dl (14.0-18.0); Mean Corpuscular HGB Conc 33 g/dl (31-36); Mean Corpuscular Hemoglobin 31 pg (27-31); Mean Corpuscular Volume 96 fL (80-94); Mean Platelet Volume 8.6 fL (7.4-10.4); Platelet Count 243 10^3/ul (150-450); Red Blood Count 3.69 10^6/ul (4.00-5.40); Red Cell Distribution Width 14 % (10.5-15); White Blood Count 24.2 10^3/ul (3.5-10.8)
[2018-03-24 05:49] LABS: Calcium 8.7 mg/dL (8.6-10.3); EGFR African American 76.9 (>60); EGFR Non-African American 63.6 (>60); Potassium 4.4 mmol/L (3.5-5.0)
[2018-03-24] MEDS: methylPREDNISolone 125 MG* 2 ML VIAL IV SCH ×2 (05:54→18:46)
[2018-03-24] MEDS ORDERED: Piperacillin/Tazobac ADVAN(*) 3.375 GM in NS 0.9% 100 ML* 100 ML IVPB ONE (05:55)
[2018-03-24 05:58] LABS: Troponin I 0.34 ng/mL (<0.04)
[2018-03-24 06:00] LABS: ABS Neutrophils 21.78 10^3/ul (1.5-7.7); Immature Granulocytes 2 % (0-9); Lymphocytes % 5 %; Monocytes % 5 %; Neutrophil % 88 %
[2018-03-24] MEDS ORDERED: Zosyn per Pharmacy* NOTE FOLLOW UP SCH (06:00)
[2018-03-24] MEDS: Mometasone/Formoter 200/5 MDI INH SCH ×2 (07:44→19:34)
[2018-03-24] MEDS: Budesonide NEB* 0.25 MG/2 ML NEB.SOLN INH SCH ×2 (07:44→19:38)
[2018-03-24] MEDS ORDERED: Metoprolol Tartrate IV* 1 MG/ML 5 ML VIAL ONE (07:59)
[2018-03-24] MEDS ORDERED: Digoxin IV* 0.5 MG/2 ML AMP (0.25 MG/ML) IV SLOW PU ONE (08:03)
[2018-03-24] MEDS ORDERED: Digoxin IV* 0.5 MG/2 ML AMP (0.25 MG/ML) ONE (08:09)
[2018-03-24] MEDS: Heparin VIAL(*) 5000 UNITS/ML VIAL (FIVE THOUSAND) SUBCUT SCH ×2 (09:13→20:30)
[2018-03-24] MEDS: Aspirin EC TAB* 81 MG TAB.EC PO SCH (09:52)
[2018-03-24] MEDS: Metoprolol Succinate XL TAB* 25 MG PO SCH ×2 (09:53→20:31)
--- NOTE | 2018-03-24 09:58 | PN ---
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 03/23: transitioned to HFNC. Reports feeling improved. 03/24: episode of rapid afib overnight. wbc increased. started on amiodarone. Vital Signs: Temp Pulse Resp BP SpO2 FiO2 98.2 F 88 16 119/72 97 30 03/24/18 08:00 03/24/18 08:31 03/24/18 08:31 03/24/18 08:31 03/24/18 08:31 03/24 09:33 Physical Exam: Gen - chronically ill heent - ncat, eomi, perrl neck - no jvd cv - s1/s2, tachy pulm - distant heart sounds, +wheeze abd - soft, nt, nd ext - no cce neuro - aao x3 Fluid Balance (Past 24 Hours): I= O= Net Intake & Output 03/22/18 03/23/18 03/24/18 03/25/18 06:59 06:59 06:59 06:59 Intake Total 150 2333 1492 Output Total 150 1000 425 125 Balance 0 1333 1067 -125 Weight 50.031 kg 51.4 kg 55.2 kg Intake: IV Fluids 150 1771 398 normal saline 370 398 IVPB 325 50 ceftriaxone 60 50 Medicated IV 854 CC - Amiodarone 854 Oral 0 237 190 Output: Urine 150 1000 425 125 Other: # Voids 0 0 Labs: Laboratory Results - last 24 hr 03/23/18 03/23/18 03/24/18 05:54 14:05 05:17 WBC RBC Hgb Hct MCV MCH MCHC RDW Plt Count MPV Neut % (Auto) Lymph % (Auto) [place] % (Auto) Eos % (Auto) Baso % (Auto) Absolute Neuts (auto) Absolute Lymphs (auto) Absolute Monos (auto) Absolute Eos (auto) Absolute Basos (auto) Absolute Nucleated RBC Immature Gran % Neutrophils % Band Neutrophils % Lymphocytes % Monocytes % Nucleated RBC % Abs Neuts (Manual) Abs Lymphs (Manual) Abs Monocytes (Manual) Normal RBC Morphology Sodium 142 Potassium 4.4 Chloride 108 Carbon Dioxide 25 Anion Gap 9 BUN 30 H Creatinine 1.11 Est GFR ( Amer) 76.9 Est GFR (Non-Af Amer) 63.6 BUN/Creatinine Ratio 27.0 H Glucose 177 H Calcium 8.7 Magnesium 2.0 Troponin I 0.37 H* 0.34 H* B-Natriuretic Peptide 1155 H 03/24/18 05:17 WBC 24.2 H RBC 3.69 L Hgb 11.5 L Hct 35 L MCV 96 H MCH 31 MCHC 33 RDW 14 Plt Count 243 MPV 8.6 Neut % (Auto) Not Reportable Lymph % (Auto) Not Reportable [place] % (Auto) Not Reportable Eos % (Auto) Not Reportable Baso % (Auto) Not Reportable Absolute Neuts (auto) Not Reportable Absolute Lymphs (auto) Not Reportable Absolute Monos (auto) Not Reportable Absolute Eos (auto) Not Reportable Absolute Basos (auto) Not Reportable Absolute Nucleated RBC Not Reportable Immature Gran % 2 Neutrophils % 88 Band Neutrophils % 2 Lymphocytes % 5 Monocytes % 5 Nucleated RBC % Not Reportable Abs Neuts (Manual) 21.78 H Abs Lymphs (Manual) 1.21 Abs Monocytes (Manual) 1.21 H Normal RBC Morphology Normal Sodium Potassium Chloride Carbon Dioxide Anion Gap BUN Creatinine Est GFR ( Amer) Est GFR (Non-Af Amer) BUN/Creatinine Ratio Glucose Calcium Magnesium Troponin I B-Natriuretic Peptide Studies: 03/24 CXR - COPD. No acute pulmonary disease. 03/23 TTE - LVEF 20-25% 03/21 CXR - COPD Impression: 82M with hld, systolic chf, severe copd admitted with acute on chronic hypoxic respiratory failure 2/2 copd/pna/chf. Rapid afib overnight. Plan: Neuro - pain control CV - hld, acute on chronic chf, rapid afib - LVEF 20-25% - unable to tolerate zac 2/2 low bp - Toprol increased to 25mg - started on digoxin - will stop amio when bag drip finishes - strict i/o - daily weights - c/w asa/statin pulm - acute on chronic hypoxic and hypercapnic respiratory failure - 2/2 copd/chf/pna - nebs q4h and prn - steroid taper - bipap/hfnc prn - morphine prn dyspnea id - pna? - cultures neg so far - abx changed to zosyn overnight - lactate negative gi - diet as tolerated renal - monitor i/o - monitor lytes heme - monitor cbc endo - fs ok lines - piv ppx - gi/dvt DNR/DNI Critical Care Time: 50 mins
[2018-03-24] MEDS ORDERED: Amiodarone 360 MG IVPREMIX* 360 MG/200 ML BAG IV SCH (11:15)
[2018-03-24] MEDS: ZOSYN 3.375 GM Q8H per EXTENDED INFUSION IVPB SCH ×4 (12:14→19:00)
[2018-03-24] MEDS: Digoxin TAB* 0.125 MG PO SCH (18:53)
[2018-03-24] MEDS: Pantoprazole IV* 40 MG IV SCH (20:30)
[2018-03-24] MEDS: Atorvastatin* 10 MG TAB PO SCH (20:31)
[2018-03-24] MEDS ORDERED: LORazepam INJ* 2 MG/ML 1 ML VIAL IV PUSH PRN (22:56)
[2018-03-25] MEDS: Morphine VIAL* 4 MG/ML VIAL (1 ml vial) IV PRN (01:06)
[2018-03-25] MEDS: Albuterol/Ipratropium NEB.SOL* Albuterol 2.5 MG/Ipratropium 0.5 MG 3 ML INH SCH ×6 (02:24→23:27)
[2018-03-25] MEDS ORDERED: Metoprolol Tartrate IV* 1 MG/ML 5 ML VIAL IV PRN (02:34)
[2018-03-25] MEDS ORDERED: LORazepam INJ* 2 MG/ML 1 ML VIAL ONE (02:44)
[2018-03-25] MEDS: ZOSYN 3.375 GM Q8H per EXTENDED INFUSION IVPB SCH ×6 (02:47→21:00)
[2018-03-25] MEDS: LORazepam INJ* 2 MG/ML 1 ML VIAL IV PUSH PRN ×2 (02:47→23:22)
[2018-03-25 03:11] LABS: Urine Appearance Cloudy; Urine Bacteria Absent (Absent); Urine Bilirubin Negative (Negative); Urine Blood 1+ (Negative); Urine Color Yellow; Urine Glucose Negative (Negative); Urine Ketones Negative (Negative); Urine Nitrite Negative (Negative); Urine Protein Negative (Negative); Urine Red Blood Cell Trace(0-2/hpf) (Absent); Urine Specific Gravity 1.019 (1.010-1.030); Urine Urobilinogen Negative (Negative); Urine White Blood Cell Trace(0-5/hpf) (Absent)
[2018-03-25 05:20] LABS: ABS Basophils 0 10^3/ul (0-0.2); ABS Eosinophils 0 10^3/ul (0-0.6); ABS Lymphocytes 0.2 10^3/ul (1.0-4.8); ABS Monocytes 0.6 10^3/ul (0-0.8); ABS Nucleated RBC 0 10^3/ul; Eosinophil % 0 %; Hematocrit 34 % (42-52); Hemoglobin 11.3 g/dl (14.0-18.0); Lymphocyte % 1.4 %; Mean Corpuscular HGB Conc 33 g/dl (31-36); Mean Corpuscular Hemoglobin 31 pg (27-31); Mean Corpuscular Volume 95 fL (80-94); Mean Platelet Volume 8.4 fL (7.4-10.4); Nucleated Red Blood Cells % 0.1; Platelet Count 215 10^3/ul (150-450); Red Blood Count 3.62 10^6/ul (4.00-5.40); Red Cell Distribution Width 14 % (10.5-15); White Blood Count 17.9 10^3/ul (3.5-10.8)
[2018-03-25 05:40] LABS: Digoxin 1.4 ng/ml (0.8-2.0)
[2018-03-25 05:41] LABS: BUN/Creatinine Ratio 28.8 (8-20); Calcium 9.1 mg/dL (8.6-10.3); EGFR African American 76.9 (>60); EGFR Non-African American 63.6 (>60); Magnesium 2.2 mg/dL (1.9-2.7); Potassium 4.3 mmol/L (3.5-5.0)
[2018-03-25] MEDS ORDERED: methylPREDNISolone SOD 40 MG* 1 ML VIAL ONE (06:09)
[2018-03-25] MEDS: methylPREDNISolone 125 MG* 2 ML VIAL IV SCH (06:59)
[2018-03-25] MEDS ORDERED: methylPREDNISolone SOD 40 MG* 1 ML VIAL IV SCH (07:00)
[2018-03-25] MEDS: Budesonide NEB* 0.25 MG/2 ML NEB.SOLN INH SCH ×2 (07:39→19:15)
[2018-03-25] MEDS: Heparin VIAL(*) 5000 UNITS/ML VIAL (FIVE THOUSAND) SUBCUT SCH ×2 (08:50→21:51)
[2018-03-25] MEDS ORDERED: Digoxin IV* 0.5 MG/2 ML AMP (0.25 MG/ML) IV SLOW PU SCH (09:00)
[2018-03-25] MEDS: Metoprolol Succinate XL TAB* 25 MG PO SCH ×2 (10:08→21:51)
[2018-03-25] MEDS: Aspirin EC TAB* 81 MG TAB.EC PO SCH (10:08)
--- NOTE | 2018-03-25 12:19 | PN ---
Date of Service: 03/25/18 Critical Care Services: Patient appears comfortable - is off amiodarone and in sinus rhythm. Vital Signs: Temp Pulse Resp BP SpO2 FiO2 98.6 F 92 20 134/84 96 40 Physical Exam: Gen:Awake and appropriate but is lethargic HEENT: Pupils midposition and reactive. No facial asymmetry Lungs:Clear - BS distant. Cardiac: Reg rhythm. Nu murmurs Abdomen:Not distended. Extremities: No cyanosis or edema. Fluid Balance (Past 24 Hours): 03/25/18 06:59 Intake Total 728.6 Output Total 825 Balance -96.4 Weight 113 lb Intake: IV Fluids 52.6 normal saline 52.6 IVPB 178 Zosyn 178 ceftriaxone Medicated IV 198 CC - Amiodarone 198 Oral 300 Output: Urine 445 Thomas 380 Other: # Voids Labs: Laboratory Results - last 24 hr 03/25/18 03/25/18 03/25/18 03:00 05:05 05:05 WBC 17.9 H RBC 3.62 L Hgb 11.3 L Hct 34 L MCV 95 H MCH 31 MCHC 33 RDW 14 Plt Count 215 Sodium 143 Potassium 4.3 Chloride 107 Carbon Dioxide 29 Anion Gap 7 BUN 32 H Creatinine 1.11 Glucose 159 H Calcium 9.1 Magnesium 2.2 Urine Color Yellow Urine Appearance Cloudy Urine pH 5.0 Ur Specific [place] 1.019 Urine Protein Negative Urine Ketones Negative Urine Blood 1+ A Urine Nitrate Negative Urine Bilirubin Negative Urine Urobilinogen Negative Ur Leukocyte Esterase Negative Urine WBC (Auto) Trace(0-5/hpf) Urine RBC (Auto) Trace(0-2/hpf) Urine Bacteria Absent Hyaline Casts Present A Urine Glucose Negative Digoxin 1.4 Studies: All cultures negative to date. Nutrition: Oral diet - intake poor Impression: Patient with end-stage COPD recently exacerbated by episode of AFib, which has resolved. Overall clinical condition is very tenuous, and food intake is poor. Plan: 1. Swallow evaluation to determine need for a feeding tube. 2. Consult for hospice care. 3. Will not anticoagulate for Afib since it was the first episode, and also considering the patient's overall clinical condition. Family aware of the patients current condition, and the plan for hospice care. Critical Care Time: 30 minutes
[2018-03-25] MEDS: methylPREDNISolone SOD 40 MG* 1 ML VIAL IV SCH (16:54)
[2018-03-25] MEDS: Digoxin TAB* 0.125 MG PO SCH (16:56)
[2018-03-25] MEDS: Mometasone/Formoter 200/5 MDI INH SCH (19:32)
[2018-03-25] MEDS: Pantoprazole IV* 40 MG IV SCH (21:51)
[2018-03-25] MEDS: Atorvastatin* 10 MG TAB PO SCH (21:51)
[2018-03-26] MEDS: Albuterol/Ipratropium NEB.SOL* Albuterol 2.5 MG/Ipratropium 0.5 MG 3 ML INH SCH ×5 (03:10→21:25)
[2018-03-26] MEDS: ZOSYN 3.375 GM Q8H per EXTENDED INFUSION IVPB SCH ×4 (03:50→11:55)
[2018-03-26] MEDS: LORazepam INJ* 2 MG/ML 1 ML VIAL IV PUSH PRN ×2 (04:43→22:17)
[2018-03-26] MEDS: methylPREDNISolone SOD 40 MG* 1 ML VIAL IV SCH (06:07)
[2018-03-26 06:55] LABS: Hematocrit 32 % (42-52); Hemoglobin 10.6 g/dl (14.0-18.0); Mean Corpuscular HGB Conc 33 g/dl (31-36); Mean Corpuscular Hemoglobin 31 pg (27-31); Mean Corpuscular Volume 95 fL (80-94); Platelet Count 213 10^3/ul (150-450); Red Cell Distribution Width 14 % (10.5-15)
[2018-03-26 07:00] LABS: BUN/Creatinine Ratio 32.3 (8-20); Calcium 8.9 mg/dL (8.6-10.3); EGFR African American 87.8 (>60); EGFR Non-African American 72.6 (>60); Potassium 4.1 mmol/L (3.5-5.0)
[2018-03-26] MEDS: Budesonide NEB* 0.25 MG/2 ML NEB.SOLN INH SCH ×2 (07:44→21:25)
[2018-03-26] MEDS: Mometasone/Formoter 200/5 MDI INH SCH ×3 (07:44→21:25)
[2018-03-26] MEDS: Heparin VIAL(*) 5000 UNITS/ML VIAL (FIVE THOUSAND) SUBCUT SCH ×2 (10:33→19:46)
[2018-03-26] MEDS: Metoprolol Succinate XL TAB* 25 MG PO SCH ×3 (10:33→19:46)
[2018-03-26] MEDS: Aspirin EC TAB* 81 MG TAB.EC PO SCH (10:33)
--- NOTE | 2018-03-26 14:15 | CONSULT ---
Palliative / Hospice Consult Ordering Provider: Valdez Quick - PCP Tramaine - Subjective Code Status: DNR Advance Directives Location: No Advance Directives MOLST Part A Completed: Yes - on chart MOLST Part E Completed:: Yes - on chart - History or Present Illness History or Present Illness: 82 yo male with COPD on O2 at home presents to ER with SOB for 3-4 days and increase weakness. PMH significant for CHF diastolic and EF 20-25% severe decreased systolic. CXR shows COPD, cardiomyopathy, mild dementia, nstemi . Last hospitalization 04/23 for COPD exacerbation, 12/06 for COPD exacerbatioin and NSTEMI was sent to [facility]. He is down 2 kilos in last few months,tprot 6.2, alb 3.4 BNP 1155 CRP 57.59 BUN/Cr 32/1.11 egfr 63.6, H/H 11.3/ 34. Pt has been having more episodes of shortness of breath and usual ways to help calm him down are not working. He is needing to use O2 to go to the bathroom. is worried his needs are getting greater than she can handle. Currently he is being treated for acute on chronic respiratory failure, COPD exacerbation, rule out pneumonia and CHF. Ex tob user, rare ETOH and no drugs Lab Values: Abnormal Lab Results 03/26/18 03/26/18 06:15 06:15 WBC 11.0 H RBC 3.40 L Hgb 10.6 L Hct 32 L MCV 95 H MCH 31 MCHC 33 RDW 14 Plt Count 213 MPV 9.0 Sodium 144 Potassium 4.1 Chloride 105 Carbon Dioxide 32 Anion Gap 7 BUN 32 H Creatinine 0.99 Est GFR ( Amer) 87.8 Est GFR (Non-Af Amer) 72.6 BUN/Creatinine Ratio 32.3 H Glucose 147 H Calcium 8.9 Laboratory Last Values WBC 11.0 10^3/ul (3.5-10.8) H 03/26/18 06:15 RBC 3.40 10^6/ul (4.00-5.40) L 03/26/18 06:15 Hgb 10.6 g/dl (14.0-18.0) L 03/26/18 06:15 Hct 32 % (42-52) L 03/26/18 06:15 MCV 95 fL (80-94) H 03/26/18 06:15 MCH 31 pg (27-31) 03/26/18 06:15 MCHC 33 g/dl (31-36) 03/26/18 06:15 RDW 14 % (10.5-15) 03/26/18 06:15 Plt Count 213 10^3/ul (150-450) 03/26/18 06:15 MPV 9.0 fL (7.4-10.4) 03/26/18 06:15 Neut % (Auto) 95.1 % 03/25/18 05:05 Lymph % (Auto) 1.4 % 03/25/18 05:05 Beadle % (Auto) 3.3 % 03/25/18 05:05 Eos % (Auto) 0 % 03/25/18 05:05 Baso % (Auto) 0.2 % 03/25/18 05:05 Absolute Neuts (auto) 17.0 10^3/ul (1.5-7.7) H 03/25/18 05:05 Absolute Lymphs (auto) 0.2 10^3/ul (1.0-4.8) L 03/25/18 05:05 Absolute Monos (auto) 0.6 10^3/ul (0-0.8) 03/25/18 05:05 Absolute Eos (auto) 0 10^3/ul (0-0.6) 03/25/18 05:05 Absolute Basos (auto) 0 10^3/ul (0-0.2) 03/25/18 05:05 Absolute Nucleated RBC 0 10^3/ul 03/25/18 05:05 Immature Gran % 2 % (0-9) 03/24/18 05:17 Neutrophils % 88 % 03/24/18 05:17 Band Neutrophils % 2 % (0-8) 03/24/18 05:17 Lymphocytes % 5 % 03/24/18 05:17 Monocytes % 5 % 03/24/18 05:17 Nucleated RBC % 0.1 03/25/18 05:05 Abs Neuts (Manual) 21.78 10^3/ul (1.5-7.7) H 03/24/18 05:17 Abs Lymphs (Manual) 1.21 10^3/ul (1.0-4.8) 03/24/18 05:17 Abs Monocytes (Manual) 1.21 10^3/ul (0-0.8) H 03/24/18 05:17 Normal RBC Morphology Normal (Normal) 03/24/18 05:17 INR (Anticoag Therapy) 0.93 (0.77-1.02) 03/21/18 13:40 D-Dimer, Quantitative 247 ng/mL (Less Than 230) H 03/22/18 08:03 Patient Temperature Not Reportable 03/22/18 18:09 ABG pH 7.31 (7.35-7.45) L 03/22/18 19:45 ABG pH (Temp Correct) Not Reportable 03/22/18 18:09 ABG pCO2 48 mmHg (35-45) H 03/22/18 19:45 ABG pCO2 (Temp Corrct Not Reportable 03/22/18 18:09 ABG pO2 133 mmHg (80-100) H 03/22/18 19:45 ABG pO2 (Temp Correct Not Reportable 03/22/18 18:09 ABG HCO3 23.0 mmol/L (19-31) 03/22/18 19:45 ABG O2 Saturation 99.4 % (94.0-98.0) H 03/22/18 19:45 ABG Base Excess -2.5 mmol/L (-2.0-2.0) L 03/22/18 19:45 Respiration Rate Not Reportable 03/22/18 18:09 O2 Delivery Device 2lpm 03/22/18 18:09 Ventilator Type Not Reportable 03/22/18 18:09 Vent Mode Not Reportable 03/22/18 18:09 FiO2 Not Reportable 03/22/18 18:09 Inspiratory Time Not Reportable 03/22/18 18:09 PEEP Not Reportable 03/22/18 18:09 Pressure Support Not Reportable 03/22/18 18:09 Pressure Control Not Reportable 03/22/18 18:09 EPAP Not Reportable 03/22/18 18:09 IPAP Not Reportable 03/22/18 18:09 BiPAP Not Reportable 03/22/18 18:09 Sodium 144 mmol/L (135-145) 03/26/18 06:15 Potassium 4.1 mmol/L (3.5-5.0) 03/26/18 06:15 Chloride 105 mmol/L (101-111) 03/26/18 06:15 Carbon Dioxide 32 mmol/L (22-32) 03/26/18 06:15 Anion Gap 7 mmol/L (2-11) 03/26/18 06:15 BUN 32 mg/dL (6-24) H 03/26/18 06:15 Creatinine 0.99 mg/dL (0.67-1.17) 03/26/18 06:15 Est GFR ( Amer) 87.8 (>60) 03/26/18 06:15 Est GFR (Non-Af Amer) 72.6 (>60) 03/26/18 06:15 BUN/Creatinine Ratio 32.3 (8-20) H 03/26/18 06:15 Glucose 147 mg/dL (70-100) H 03/26/18 06:15 Lactic Acid 1.3 mmol/L (0.5-2.0) 03/21/18 13:40 Calcium 8.9 mg/dL (8.6-10.3) 03/26/18 06:15 Phosphorus 3.5 mg/dL (2.5-5.0) 03/23/18 05:54 Magnesium 2.2 mg/dL (1.9-2.7) 03/25/18 05:05 Total Bilirubin 0.20 mg/dL (0.2-1.0) 03/23/18 05:54 AST 21 U/L (13-39) 03/23/18 05:54 ALT 20 U/L (7-52) 03/23/18 05:54 Alkaline Phosphatase 113 U/L (34-104) H 03/23/18 05:54 Troponin I 0.34 ng/mL (<0.04) H* 03/24/18 05:17 C-Reactive Protein 57.59 mg/L (<8.01) H 03/21/18 13:40 B-Natriuretic Peptide 1155 pg/mL (<=100) H 03/23/18 05:54 Total Protein 6.2 g/dL (6.4-8.9) L 03/23/18 05:54 Albumin 3.4 g/dL (3.2-5.2) 03/23/18 05:54 Globulin 2.8 g/dL (2-4) 03/23/18 05:54 Albumin/Globulin Ratio 1.2 (1-3) 03/23/18 05:54 Urine Color Yellow 03/25/18 03:00 Urine Appearance Cloudy 03/25/18 03:00 Urine pH 5.0 (5-9) 03/25/18 03:00 Ur Specific [place] 1.019 (1.010-1.030) 03/25/18 03:00 Urine Protein Negative (Negative) 03/25/18 03:00 Urine Ketones Negative (Negative) 03/25/18 03:00 Urine Blood 1+ (Negative) A 03/25/18 03:00 Urine Nitrate Negative (Negative) 03/25/18 03:00 Urine Bilirubin Negative (Negative) 03/25/18 03:00 Urine Urobilinogen Negative (Negative) 03/25/18 03:00 Ur Leukocyte Esterase Negative (Negative) 03/25/18 03:00 Urine WBC (Auto) Trace(0-5/hpf) (Absent) 03/25/18 03:00 Urine RBC (Auto) Trace(0-2/hpf) (Absent) 03/25/18 03:00 Ur Squamous Epith Cells Present (Absent) A 03/21/18 23:30 Urine Bacteria Absent (Absent) 03/25/18 03:00 Hyaline Casts Present (Absent) A 03/25/18 03:00 Urine Glucose Negative (Negative) 03/25/18 03:00 Digoxin 1.4 ng/ml (0.8-2.0) 03/25/18 05:05 Influenza A (Rapid) Negative (Negative) 03/21/18 13:25 Influenza B (Rapid) Negative (Negative) 03/21/18 13:25 - Objective Active Medications: Acetaminophen (Tylenol Tab*) 650 mg PO Q4H PRN PRN Reason: FEVER/PAIN Albuterol (Ventolin 2.5 Mg/3 Ml Neb.Nancy*) 2.5 mg INH Q2H PRN PRN Reason: SOB/WHEEZING Albuterol/Ipratropium (Duoneb (Albuterol 2.5 Mg/Ipratropium 0.5 Mg)) 1 neb INH [id number] AWAKE [facility] Last Admin: 03/26/18 11:36 Dose: 1 neb Aspirin (Aspirin Ec Tab*) 81 mg PO DAILY [facility] Last Admin: 02/18/19 10:33 Dose: 81 mg Atorvastatin Calcium (Lipitor*) 10 mg PO BEDTIME [facility] Last Admin: 03/25/18 21:51 Dose: 10 mg Budesonide (Pulmicort Neb*) 0.25 mg INH BID [facility] Last Admin: 03/26/18 07:44 Dose: 0.25 mg Digoxin (Lanoxin Tab*) 0.125 mg PO 1700 [facility] Last Admin: 03/25/18 16:56 Dose: 0.125 mg Heparin Sodium (Porcine) (Heparin Vial(*)) 5,000 units SUBCUT Q12H [facility] Last Admin: 03/26/18 10:33 Dose: 5,000 units Piperacillin Sod/Tazobactam (Sod 3.375 gm/ Sodium Chloride) 100 mls @ 25 mls/ hr IVPB Q8H [facility] Last Admin: 03/26/18 11:55 Dose: 25 mls/hr Lorazepam (Ativan Inj*) 1 mg IV PUSH Q4H PRN PRN Reason: ANXIETY Last Admin: 03/26/18 04:43 Dose: 1 mg Methylprednisolone Sodium Succinate (Solu-Medrol 40 Mg) 40 mg IV 0630,1830 [facility] Last Admin: 03/26/18 06:07 Dose: 40 mg Metoprolol Succinate (Toprol Xl Tab*) 25 mg PO BID [facility] Last Admin: 03/26/18 10:33 Dose: 25 mg Metoprolol Tartrate (Lopressor Iv*) 5 mg IV Q6H PRN PRN Reason: BLOOD PRESSURE Last Admin: 03/25/18 02:46 Dose: 5 mg Mometasone Furoate/Formoterol Fumar (Dulera 200/5 Mdi*) 2 puff INH BID [facility] Last Admin: 03/26/18 07:44 Dose: 2 puff Morphine Sulfate (Morphine Vial*) 4 mg IV Q2H PRN PRN Reason: AIR HUNGER Last Admin: 03/25/18 01:06 Dose: 4 mg Pantoprazole Sodium (Protonix Iv*) 40 mg IV Q24H [facility] Last Admin: 03/25/18 21:51 Dose: 40 mg Pharmacy Consult (Zosyn Per Pharmacy*) 1 note FOLLOW UP .ZOSYN PER PHARMACY [facility] Vital Signs: Vital Signs: Temp Pulse Resp BP Pulse Ox 98.1 F 106 22 123/80 97 03/26/18 13:00 03/26/18 13:00 03/26/18 13:00 03/26/18 13:00 03/26/18 13:00 Patient Weight: Weight 51.5 kg Intake and Output: Intake & Output 03/24/18 03/25/18 03/26/18 03/27/18 06:59 06:59 06:59 06:59 Intake Total 1492 728.6 476 Output Total 860 393 7135 220 Balance 1067 -96.4 -594 -220 Weight 55.2 kg 51.3 kg 51.5 kg Intake: IV Fluids 398 52.6 110 Zosyn 100 normal saline 398 52.6 10 IVPB 50 178 286 Zosyn 178 221 ceftriaxone 50 normal saline 65 Medicated IV 854 198 CC - Amiodarone 854 198 Oral 190 300 80 Output: Urine 425 445 160 Thomas 380 910 220 ADLs: Meal Record Start: 03/21/18 19: 34 Freq: DAILY@0900,1400,1800 Status: Complete Protocol: Created 03/21/18 19:34 System (Rec: 03/21/18 19:34 System RESP-M04) Document 03/22/18 09:00 [id number] (Rec: 03/22/18 11:48 [id number] MED-C09) Document 03/22/18 13:54 [id number] (Rec: 03/22/18 13:55 [id number] MED-C09) Document 03/22/18 18:00 GMB9313 (Rec: 03/22/18 19:34 IKK2790 MED-C03) ADLs: Meal Record Start: 03/22/18 20: 00 Freq: 09,13,18 Status: Active Protocol: Created 03/22/18 20:00 [id number] (Rec: 03/22/18 20:00 [id number] ICU-C06) Document 03/23/18 13:00 [id number] (Rec: 03/23/18 14:16 [id number] ICU-C06) Document 03/23/18 18:19 [id number] (Rec: 03/23/18 18:21 ECF9523 ICU-C06) Document 03/24/18 10:00 VZE9134 (Rec: 03/24/18 11:11 [id number] ICU-C07) Document 03/24/18 18:00 IDU1532 (Rec: 03/24/18 18:35 [id number] ICU-C07) Document 03/26/18 09:00 BVU0659 (Rec: 03/26/18 13:14 [id number] ICU-C06) Intake and Output Start: 03/21/18 12: 53 Freq: Status: Active Protocol: Created 03/21/18 12:53 System (Rec: 03/21/18 12:53 System ED-C24) Intake and Output Start: 03/21/18 19: 34 Freq: DAILY@0600,1400,2200 Status: Complete Protocol: Created 03/21/18 19:34 System (Rec: 03/21/18 19:34 System RESP-M04) Document 03/21/18 22:00 JMC2328 (Rec: 03/21/18 23:49 UTB4879 MED-C11) Document 03/22/18 06:00 [id number] (Rec: 03/22/18 06:20 BOM8518 MED-C09) Document 03/22/18 13:54 RYE7191 (Rec: 03/22/18 13:55 [id number] MED-C09) Document 03/22/18 16:36 UGK6397 (Rec: 03/22/18 16:36 VPK2052 MED-M09) Intake and Output Start: 03/22/18 20: 00 Freq: Q1HR Status: Active Protocol: Document 03/22/18 20:00 DYF2521 (Rec: 03/22/18 20:10 [id number] ICU-C06) Created 03/22/18 20:00 PSY4944 (Rec: 03/22/18 20:00 ABR4847 ICU-C06) Document 03/22/18 21:00 UEV9064 (Rec: 03/22/18 21:55 XVR3287 ICU-C06) Document 03/22/18 22:00 YRN8505 (Rec: 03/22/18 22:16 UIO7297 ICU-C06) Document 03/23/18 02:00 FIP9148 (Rec: 03/23/18 02:42 IBE3770 ICU-C06) Document 03/23/18 02:54 HFQ7425 (Rec: 03/23/18 02:55 TTG2963 ICU-C14) Document 03/23/18 04:00 RWO9312 (Rec: 03/23/18 04:53 KLF9097 ICU-C06) Document 03/23/18 05:00 UZE3965 (Rec: 03/23/18 05:44 AAQ6840 ICU-C06) Document 03/23/18 06:00 UPW7725 (Rec: 03/23/18 06:08 ETY2951 ICU-C06) Document 03/23/18 08:00 QVY1049 (Rec: 03/23/18 10:20 XIO3266 ICU-C06) Document 03/23/18 10:00 XTY9419 (Rec: 03/23/18 10:44 OSA9458 ICU-C06) Document 03/23/18 16:55 OIN6303 (Rec: 03/23/18 16:55 RON5316 ICU-C06) Document 03/23/18 20:00 NGS1652 (Rec: 03/23/18 21:18 FOF6611 ICU-C25) Document 03/24/18 00:00 TDY5814 (Rec: 03/24/18 03:53 KWE5901 ICU-C06) Document 03/24/18 04:00 BFQ4985 (Rec: 03/24/18 05:38 AML4542 ICU-C06) Document 03/24/18 08:00 DSQ2544 (Rec: 03/24/18 08:46 JUV2967 ICU-C07) Document 03/24/18 12:00 EXG0816 (Rec: 03/24/18 12:15 UTA5545 ICU-M35) Document 03/24/18 18:00 SIH4092 (Rec: 03/24/18 18:36 ZQD0458 ICU-C07) Document 03/25/18 00:00 OWX0154 (Rec: 03/25/18 00:28 KWE9105 ICU-C06) Document 03/25/18 04:00 QTP7208 (Rec: 03/25/18 04:45 AHO2471 ICU-C06) Document 03/25/18 10:00 EDV8867 (Rec: 03/25/18 10:51 YVY8736 ICU-C06) Document 03/25/18 13:49 SXG7559 (Rec: 03/25/18 13:49 EFW3948 ICU-C06) Document 03/25/18 14:00 PDD9348 (Rec: 03/25/18 14:11 XWJ0372 ICU-C06) Document 03/25/18 16:12 RVA6765 (Rec: 03/25/18 16:12 HEM3847 ICU-C06) Document 03/25/18 17:49 XKC5810 (Rec: 03/25/18 17:49 BLN3518 ICU-C06) Document 03/25/18 19:00 WAS2039 (Rec: 03/25/18 20:50 CUO0620 ICU-C06) Document 03/25/18 20:00 WSN7119 (Rec: 03/25/18 20:50 TEP3991 ICU-C06) Document 03/25/18 21:00 TRN4338 (Rec: 03/25/18 22:28 JYQ5995 ICU-C06) Document 03/25/18 22:00 KVL8891 (Rec: 03/25/18 22:37 JXS0155 ICU-C06) Document 03/25/18 23:00 CRY0355 (Rec: 03/25/18 23:28 DGY1571 ICU-C06) Document 03/26/18 00:00 AVM8030 (Rec: 03/26/18 02:32 COL9581 ICU-C06) Document 03/26/18 01:00 MBO7334 (Rec: 03/26/18 02:32 LUA0050 ICU-C06) Document 03/26/18 02:00 IPQ8945 (Rec: 03/26/18 02:32 PZW2830 ICU-C06) Document 03/26/18 03:00 ECT9770 (Rec: 03/26/18 03:01 XZZ1776 ICU-C06) Document 03/26/18 04:00 CAP3724 (Rec: 03/26/18 04:07 JLY1691 ICU-C06) Document 03/26/18 05:00 GDD7416 (Rec: 03/26/18 05:37 HPM1251 ICU-C06) Document 03/26/18 06:00 XBI1485 (Rec: 03/26/18 06:30 PXY5760 ICU-C06) Document 03/26/18 07:00 LKR1394 (Rec: 03/26/18 07:34 YLA2790 ICU-C06) Document 03/26/18 08:00 HQM9143 (Rec: 03/26/18 13:30 WSR1200 ICU-C06) Document 03/26/18 09:00 UTK1713 (Rec: 03/26/18 13:30 IFY0604 ICU-C06) Document 03/26/18 10:00 IKJ2373 (Rec: 03/26/18 13:30 RPZ0554 ICU-C06) Document 03/26/18 11:00 QJX2148 (Rec: 03/26/18 13:30 TLX8152 ICU-C06) Document 03/26/18 12:00 AZU7254 (Rec: 03/26/18 13:30 TKN9353 ICU-C06) Document 03/26/18 13:00 [id number] (Rec: 03/26/18 13:30 [id number] ICU-C06) Head: Normal Ears/Nose/Mouth/Throat: NL Teeth, Lips, Gums Neck: NL Appearance and Movements; NL JVP Cardiovascular: NL Sounds; No Murmurs; No JVD, No Edema Respiratory: Clear to Auscultation - limited effort Abdominal: NL Sounds; No Tenderness; No Distention Neurological: - - alert but oriented to self and place only - Assessment Assessment: 82 yo male with COPD with dyspnea at rest, CHF systolic and diastolic and cardiomyopathy eligible for hospice - Plan Consult Plan (MU): Hospice Plan: Long conversation with and daughter. They have noted he has been declining getting about with more shortness of breathe. He has dyspnea at rest and with O2 on. He is a DNR/DNI MOLST is on the chart. They are hoping to get him to the hospice residence. Although she is unsure if she can care for him at home she will opt to that instead of sending him to SNF with hospice. We discussed multiple options. They realize he has less than 6 months to live and actually think it might be less. His dementia is mild. KPS 30%, PPS 40%. He qualifies for hospice with end stage COPD hypoxia on room air and dyspnea at rest with O2 usage,CHF with EF 20-25% Class IV/ CLASS D. Left message for Dr. Valdez that pt is being evaluated for hospice. - Time On Unit Date of Evaluation: 03/26/18 Hospice Consult Time in: 10:00 Hospice Consult Time Out: 11:30 Hospice Consult Time Total: 90 > 50% of Time Spend In Counseling or Coordinating Care: Yes
--- NOTE | 2018-03-26 14:23 | PN ---
Date of Service: 10/24/18 Critical Care Services: patient seems comfortable today. No specific complaints. On nasal O2 at 8 L/min. Vital Signs: Temp Pulse Resp BP SpO2 FiO2 98.1 F 106 22 123/80 97 35 Rhythm strip shows sinus rhythm. Physical Exam: Gen:Awake and responds to verbal commands, but is lethargic. Lungs: Coarse rhonchi on both sides Cardiac: Reg rhythm Abdomen: Not distended Extremities:No cyanosis or edema. Fluid Balance (Past 24 Hours): 03/26/18 06:59 Intake Total 476 Output Total 1070 Balance -594 Weight 113 lb Intake: IV Fluids 110 Zosyn 100 normal saline 10 IVPB 286 Zosyn 221 ceftriaxone normal saline 65 Medicated IV CC - Amiodarone Oral 80 Output: Urine 160 Thomas 910 Labs: 03/26/18 03/26/18 06:15 06:15 WBC 11.0 H RBC 3.40 L Hgb 10.6 L Hct 32 L MCV 95 H MCH 31 MCHC 33 RDW 14 Plt Count 213 MPV 9.0 Sodium 144 Potassium 4.1 Chloride 105 Carbon Dioxide 32 Anion Gap 7 BUN 32 H Creatinine 0.99 Glucose 147 H Calcium 8.9 Studies: None today. All cultures negative to date. Nutrition: Oral diet Impression: Oxygenation much better than a few days ago, which may be related to the resolution of AFIB. Plan: 1. Transfer out of ICU today. 2. D/C antibiotics (since all cultures negative) 2. Patient has been evaluated by hospice service, and is a likely candidate for admission to the outpatient hospice facility.
[2018-03-26] MEDS: Digoxin TAB* 0.125 MG PO SCH (17:28)
[2018-03-26] MEDS: Atorvastatin* 10 MG TAB PO SCH (19:46)
[2018-03-26] MEDS: Morphine VIAL* 4 MG/ML VIAL (1 ml vial) IV PRN (23:50)
[2018-03-27] MEDS: Albuterol/Ipratropium NEB.SOL* Albuterol 2.5 MG/Ipratropium 0.5 MG 3 ML INH SCH ×4 (01:36→21:54)
[2018-03-27] MEDS: LORazepam INJ* 2 MG/ML 1 ML VIAL IV PUSH PRN (01:52)
[2018-03-27] MEDS: Budesonide NEB* 0.25 MG/2 ML NEB.SOLN INH SCH ×2 (07:56→21:55)
[2018-03-27] MEDS: Mometasone/Formoter 200/5 MDI INH SCH (07:56)
[2018-03-27] MEDS: Heparin VIAL(*) 5000 UNITS/ML VIAL (FIVE THOUSAND) SUBCUT SCH ×2 (08:37→20:10)
[2018-03-27] MEDS: Metoprolol Succinate XL TAB* 25 MG PO SCH ×2 (08:37→20:10)
[2018-03-27] MEDS: predniSONE TAB* 20 MG PO SCH (08:37)
[2018-03-27] MEDS: Famotidine TAB* 20 MG PO SCH (08:37)
[2018-03-27] MEDS: Aspirin EC TAB* 81 MG TAB.EC PO SCH (08:37)
--- NOTE | 2018-03-27 12:56 | PN ---
Subjective Date of Service: 03/27/18 Interval History: HD # 7 on 03/27 82 yo M with severe COPD and cardiomyopathy, recent NSTEMI who presented to the ICU in respiratory failure, family has elected for hospice care. Overnight no acute events, remains on tele for family request. He did sip a few things with fmaily this morning, they are offering what he likes for comofort He is pleasant and sittin gup but barely verbal on my exam, he does nod and motions for his family to answer for him They have no complaints or requests aside from chocolate ensure Objective Active Medications: Acetaminophen (Tylenol Tab*) 650 mg PO Q4H PRN PRN Reason: FEVER/PAIN Albuterol (Ventolin 2.5 Mg/3 Ml Neb.Nancy*) 2.5 mg INH Q2H PRN PRN Reason: SOB/WHEEZING Albuterol/Ipratropium (Duoneb (Albuterol 2.5 Mg/Ipratropium 0.5 Mg)) 1 neb INH [id number] AWAKE [facility] Last Admin: 03/27/18 07:56 Dose: 1 neb Aspirin (Aspirin Ec Tab*) 81 mg PO DAILY [facility] Last Admin: 03/27/18 08:37 Dose: 81 mg Atorvastatin Calcium (Lipitor*) 10 mg PO BEDTIME [facility] Last Admin: 03/26/18 19:46 Dose: 10 mg Budesonide (Pulmicort Neb*) 0.25 mg INH BID [facility] Last Admin: 03/27/18 07:56 Dose: 0.25 mg Digoxin (Lanoxin Tab*) 0.125 mg PO 1700 [facility] Last Admin: 03/26/18 17:28 Dose: 0.125 mg Famotidine (Pepcid Tab*) 20 mg PO DAILY [facility] Last Admin: 03/27/18 08:37 Dose: 20 mg Heparin Sodium (Porcine) (Heparin Vial(*)) 5,000 units SUBCUT Q12H [facility] Last Admin: 03/27/18 08:37 Dose: 5,000 units Lorazepam (Ativan Inj*) 1 mg IV PUSH Q4H PRN PRN Reason: ANXIETY Last Admin: 03/27/18 01:52 Dose: 1 mg Metoprolol Succinate (Toprol Xl Tab*) 25 mg PO BID [facility] Last Admin: 03/27/18 08:37 Dose: 25 mg Metoprolol Tartrate (Lopressor Iv*) 5 mg IV Q6H PRN PRN Reason: BLOOD PRESSURE Last Admin: 03/25/18 02:46 Dose: 5 mg Mometasone Furoate/Formoterol Fumar (Dulera 200/5 Mdi*) 2 puff INH BID [facility] Last Admin: 03/27/18 07:56 Dose: 2 puff Morphine Sulfate (Morphine Vial*) 4 mg IV Q2H PRN PRN Reason: AIR HUNGER Last Admin: 03/26/18 23:50 Dose: 4 mg Prednisone (Deltasone Tab*) 20 mg PO DAILY [facility] Last Admin: 03/27/18 08:37 Dose: 20 mg Vital Signs - 8 hr 03/27/18 03/27/18 07:14 08:00 Temperature 97.3 F Pulse Rate 100 94 Respiratory 20 22 Rate Blood Pressure 122/67 (mmHg) O2 Sat by Pulse 100 98 Oximetry Oxygen Devices in Use Now: High Flow Nasal Cannula Appearance: Frail man in NAD Eyes: PERRLA Respiratory: - - Distant Cardiovascular: RRR Extremities: No Edema Skin: No Rash or Ulcers Neurological: - - Limited in verbal, follows commans Result Diagrams: 03/26/18 06:15 03/26/18 06:15 Microbiology and Other Data: Microbiology 03/21/18 14:42 Aerobic Blood Culture - Preliminary Blood Venous No Growth Day 1 Anaerobic Blood Culture - Preliminary No Growth Day 1 03/21/18 13:40 Aerobic Blood Culture - Preliminary Blood Venous No Growth Day 1 Anaerobic Blood Culture - Preliminary No Growth Day 1 03/21/18 12:56 Influenza Types A,B Antigen - Final Nasopharyngeal Specimen received for Influenza A/B Molecular testing Assess/Plan/Problems-Billing Assessment: 82 yo M with severe COPD and cardiomyopathy, recent NSTEMI who presented to the ICU in respiratory failure, family has elected for hospice care. - Patient Problems (1) Comfort measures only status Current Visit: Yes Status: Acute Code(s): Z51.5 - ENCOUNTER FOR PALLIATIVE CARE SNOMED Code(s): 56729947048154 Comment: Does have bed at Hospice on this week All measures aimed at comfort (2) COPD exacerbation Current Visit: No Status: Acute Code(s): J44.1 - CHRONIC OBSTRUCTIVE PULMONARY DISEASE W (ACUTE) EXACERBATION SNOMED Code(s): 688355300 Comment: Comfort care (3) DNR (do not resuscitate) Current Visit: No Status: Acute (4) DNI (do not intubate) Current Visit: No Status: Acute Code(s): Z78.9 - OTHER SPECIFIED HEALTH STATUS SNOMED Code(s): 196044582 Status and Disposition: Hospice Bed on
[2018-03-27] MEDS: Digoxin TAB* 0.125 MG PO SCH (17:25)
[2018-03-27] MEDS: Atorvastatin* 10 MG TAB PO SCH (20:10)
[2018-03-27] MEDS: Morphine VIAL* 4 MG/ML VIAL (1 ml vial) IV PRN (23:10)
[2018-03-28] MEDS: Albuterol/Ipratropium NEB.SOL* Albuterol 2.5 MG/Ipratropium 0.5 MG 3 ML INH SCH ×2 (01:17→07:39)
--- NOTE | 2018-03-28 07:01 | PN ---
Subjective Date of Service: 03/28/18 Interval History: HD # 8 on 03/28 82 yo M with severe COPD and cardiomyopathy, recent NSTEMI who presented to the ICU in respiratory failure, family has elected for hospice care. Overnight no acute events, remains on tele for family request. He did sip a few things with fmaily this morning, they are offering what he likes for comfort He is resting in bed when I visit in no acute distress. Family have no complaints or requests, remind them of open door policy. They have a hospice bed tomorrow. Objective Active Medications: Acetaminophen (Tylenol Tab*) 650 mg PO Q4H PRN PRN Reason: FEVER/PAIN Albuterol (Ventolin 2.5 Mg/3 Ml Neb.Nancy*) 2.5 mg INH Q2H PRN PRN Reason: SOB/WHEEZING Albuterol/Ipratropium (Duoneb (Albuterol 2.5 Mg/Ipratropium 0.5 Mg)) 1 neb INH [id number] AWAKE [facility] Last Admin: 03/28/18 01:17 Dose: 1 neb Aspirin (Aspirin Ec Tab*) 81 mg PO DAILY [facility] Last Admin: 03/27/18 08:37 Dose: 81 mg Atorvastatin Calcium (Lipitor*) 10 mg PO BEDTIME [facility] Last Admin: 03/27/18 20:10 Dose: 10 mg Budesonide (Pulmicort Neb*) 0.25 mg INH BID [facility] Last Admin: 03/27/18 21:55 Dose: 0.25 mg Digoxin (Lanoxin Tab*) 0.125 mg PO 1700 [facility] Last Admin: 03/27/18 17:25 Dose: 0.125 mg Famotidine (Pepcid Tab*) 20 mg PO DAILY [facility] Last Admin: 03/27/18 08:37 Dose: 20 mg Heparin Sodium (Porcine) (Heparin Vial(*)) 5,000 units SUBCUT Q12H [facility] Last Admin: 03/27/18 20:10 Dose: 5,000 units Lorazepam (Ativan Inj*) 1 mg IV PUSH Q4H PRN PRN Reason: ANXIETY Last Admin: 03/27/18 01:52 Dose: 1 mg Metoprolol Succinate (Toprol Xl Tab*) 25 mg PO BID [facility] Last Admin: 03/27/18 20:10 Dose: 25 mg Metoprolol Tartrate (Lopressor Iv*) 5 mg IV Q6H PRN PRN Reason: BLOOD PRESSURE Last Admin: 03/25/18 02:46 Dose: 5 mg Mometasone Furoate/Formoterol Fumar (Dulera 200/5 Mdi*) 2 puff INH BID [facility] Last Admin: 03/27/18 07:56 Dose: 2 puff Morphine Sulfate (Morphine Vial*) 4 mg IV Q2H PRN PRN Reason: [employer] Last Admin: 03/27/18 23:10 Dose: 4 mg Prednisone (Deltasone Tab*) 20 mg PO DAILY [facility] Last Admin: 03/27/18 08:37 Dose: 20 mg Vital Signs - 8 hr 03/27/18 03/27/18 03/28/18 23:10 23:52 00:21 Temperature 97.4 F Pulse Rate 110 Respiratory 22 20 20 Rate Blood Pressure 119/77 (mmHg) O2 Sat by Pulse 99 Oximetry 03/28/18 03/28/18 01:17 03:30 Temperature 97.5 F Pulse Rate 105 103 Respiratory 16 18 Rate Blood Pressure 131/69 (mmHg) O2 Sat by Pulse 95 96 Oximetry Oxygen Devices in Use Now: BiPAP Appearance: Frail man in NAD Ears/Nose/Mouth/Throat: NL Teeth, Lips, Gums, - - Dry Respiratory: Symmetrical Chest Expansion and Respiratory Effort Cardiovascular: NL Sounds; No Murmurs; No JVD, RRR Abdominal: NL Sounds; No Tenderness; No Distention Skin: No Rash or Ulcers Neurological: - - AOX2 Result Diagrams: 03/26/18 06:15 03/26/18 06:15 Microbiology and Other Data: Microbiology 03/21/18 14:42 Aerobic Blood Culture - Preliminary Blood Venous No Growth Day 1 Anaerobic Blood Culture - Preliminary No Growth Day 1 03/21/18 13:40 Aerobic Blood Culture - Preliminary Blood Venous No Growth Day 1 Anaerobic Blood Culture - Preliminary No Growth Day 1 03/21/18 12:56 Influenza Types A,B Antigen - Final Nasopharyngeal Specimen received for Influenza A/B Molecular testing Assess/Plan/Problems-Billing Assessment: 82 yo M with severe COPD and cardiomyopathy, recent NSTEMI who presented to the ICU in respiratory failure, family has elected for hospice care. - Patient Problems (1) Comfort measures only status Current Visit: Yes Status: Acute Code(s): Z51.5 - ENCOUNTER FOR PALLIATIVE CARE SNOMED Code(s): 98500891535643 Comment: Does have bed at Hospice on this week All measures aimed at comfort (2) COPD exacerbation Current Visit: No Status: Acute Code(s): J44.1 - CHRONIC OBSTRUCTIVE PULMONARY DISEASE W (ACUTE) EXACERBATION SNOMED Code(s): 544096634 Comment: Comfort care (3) DNR (do not resuscitate) Current Visit: No Status: Acute (4) DNI (do not intubate) Current Visit: No Status: Acute Code(s): Z78.9 - OTHER SPECIFIED HEALTH STATUS SNOMED Code(s): 371733442 Status and Disposition: Hospice Bed on
[2018-03-28] MEDS: Budesonide NEB* 0.25 MG/2 ML NEB.SOLN INH SCH (07:39)
[2018-03-28] MEDS: Mometasone/Formoter 200/5 MDI INH SCH ×3 (07:41→19:14)
[2018-03-28] MEDS: Metoprolol Succinate XL TAB* 25 MG PO SCH ×2 (08:31→20:46)
[2018-03-28] MEDS: Famotidine TAB* 20 MG PO SCH (08:31)
[2018-03-28] MEDS: predniSONE TAB* 20 MG PO SCH (08:31)
[2018-03-28] MEDS: Aspirin EC TAB* 81 MG TAB.EC PO SCH (08:31)
[2018-03-28] MEDS: Heparin VIAL(*) 5000 UNITS/ML VIAL (FIVE THOUSAND) SUBCUT SCH ×2 (08:32→20:46)
[2018-03-28] MEDS: Morphine VIAL* 4 MG/ML VIAL (1 ml vial) IV PRN ×2 (14:33→20:48)
[2018-03-28] MEDS: Digoxin TAB* 0.125 MG PO SCH (17:08)
--- NOTE | 2018-03-28 19:46 | DS ---
CC: Dr. Alondra Redd * DISCHARGE SUMMARY: DATE OF ADMISSION: 03/21/18 DATE OF DISCHARGE: 03/28/18 PRIMARY CARE PROVIDER: Dr. Alondra Redd. PRIMARY DIAGNOSIS: Hypoxic and hypercarbic respiratory failure. SECONDARY DIAGNOSES: As follows: 1. Severe chronic obstructive pulmonary disease. 2. Cardiomyopathy. 3. Recent [id number] myocardial infarction. 4. Diastolic congestive heart failure. MEDICATIONS ON DISCHARGE: As follows: 1. Lorazepam 1 mg IV push q.4 p.r.n. for anxiety. 2. Morphine 4 mg IV q.2 hours p.r.n. for shortness of breath. 3. Digoxin 0.125 mg p.o. daily. 4. Prednisone 20 mg p.o. daily. 5. Aspirin 81 mg p.o. daily. 6. Famotidine 20 mg p.o. daily. Medication changes on this hospitalization: Most medications were changed in this hospitalization as a result of patient being converted to comfort measures only. He will be discharged to hospice and comfort pack can be started at provider's discretion. HISTORY OF PRESENT ILLNESS AND HOSPITAL COURSE: An 82-year-old man with above past medical history who presented on 03/21/18 with increasing shortness of breath for 3 to 4 days, who is productive with white secretions. This is all in the setting of a recent NSTEMI in December 2017. He was sent for cardiac catheterization prior to the hospitalization. No stenting was done and medical management was the plan of choice. The patient reported that since then he has had intermittent chest pain. In the emergency room, the patient was tachycardic. He was unable to maintain his oxygen saturations without the use of oxygen nasal cannula. He was initially admitted to the medical floor, although on hospital day 1, he acutely decompensated with severe hypercapnia and needed to be transferred to the ICU for rescue BiPAP. The patient improved intermittently. Repeat echocardiogram was done which showed left ventricular ejection fraction of 20% to 25%, which was much decreased from prior. Ultimately, the combination of worsening heart failure with reduced ejection fraction, severe COPD exacerbation with chronic hypoxic and hypercapnic respiratory failure needing persistent BiPAP as well as possible pneumonia in the setting of a patient who had failure to thrive prior to this, the family met with palliative care and ultimately elected for comfort measures only approach. He was transferred out of the ICU on 03/25/18 and placed on the medical floor on 03/26/18, where he consulted with hospice. He will be transferred to inpatient hospice facility on 03/29/18 for further comfort measures only approach to his care. Items to follow up after this discharge are none. On day of discharge, the patient and family are aware of plan to transfer to inpatient hospice facility. They have no further questions. TIME SPENT: Thirty minutes was spent in the planning of this discharge with over half of that spent at the bedside of the patient. Please do not hesitate to contact us if there are any questions about his hospital course or the plan of care for this patient. We appreciate palliative care and hospice consultation in the care of this pleasant elderly gentleman. [id number]/[facility] #: [id number] ITZ
[2018-03-29] MEDS: Mometasone/Formoter 200/5 MDI INH SCH (07:33)
[2018-03-29 07:38] VITALS: BP 118/77
[2018-03-29] MEDS: Aspirin EC TAB* 81 MG TAB.EC PO SCH (08:09)
[2018-03-29] MEDS: predniSONE TAB* 20 MG PO SCH (08:09)
[2018-03-29] MEDS: Metoprolol Succinate XL TAB* 25 MG PO SCH (08:09)
[2018-03-29] MEDS: Heparin VIAL(*) 5000 UNITS/ML VIAL (FIVE THOUSAND) SUBCUT SCH (08:09)
[2018-03-29] MEDS: Famotidine TAB* 20 MG PO SCH (08:09)
[2018-03-29] MEDS: Morphine VIAL* 4 MG/ML VIAL (1 ml vial) IV PRN (09:53)
== END 2018-03-29 11:00 | disposition hospice, home (50) | DRG 291 ==
LOC: ED 12:48 → MED 18:31 → OBSVTOIN 03-22 16:10 → ICU 03-22 18:45 → MEDTELE 03-26 15:39
PROVIDERS: ADMIT Internal Medicine; ATTEND Internal Medicine
PROC: 5A09357 Assistance with Respiratory Ventilation, Less than 24 Consecutive Hours, Continuous Positive Airway Pressure (ICD-10-PCS; principal; 2018-03-22)
DX: I50.43 Acute on chronic combined systolic (congestive) and diastolic (congestive) heart failure (principal); J96.21 Acute and chronic respiratory failure with hypoxia; J96.22 Acute and chronic respiratory failure with hypercapnia; J18.9 Pneumonia, unspecified organism; J44.1 Chronic obstructive pulmonary disease with (acute) exacerbation; I42.9 Cardiomyopathy, unspecified; J44.0 Chronic obstructive pulmonary disease with (acute) lower respiratory infection; R00.0 Tachycardia, unspecified; I25.10 Atherosclerotic heart disease of native coronary artery without angina pectoris; F03.90 Unspecified dementia, unspecified severity, without behavioral disturbance, psychotic disturbance, mood disturbance, and anxiety; F41.9 Anxiety disorder, unspecified; E78.5 Hyperlipidemia, unspecified; Z79.82 Long term (current) use of aspirin; Z79.52 Long term (current) use of systemic steroids; Z87.891 Personal history of nicotine dependence; Z91.041 Radiographic dye allergy status; Z80.8 Family history of malignant neoplasm of other organs or systems; Z72.89 Other problems related to lifestyle; I25.2 Old myocardial infarction; Z66 Do not resuscitate; I48.91 Unspecified atrial fibrillation; R13.10 Dysphagia, unspecified; Z51.5 Encounter for palliative care
CPT/HCPCS: 36415; 36600; 71045; 80048; 80053; 80162; 81003; 81015; 82803; 83605; 83735; 83880; 84100; 84134; 84484; 85025; 85027; 85379; 85610; 86140; 87040; 87086; 87641; 93005; 93306; 94640; 94660; 99285; A9270-GY; J0282; J0456; J0696; J1160; J1644; J1940; J2060; J2270; J2543; J2920; J2930; J3490; J7512